=== PATIENT | female | born 1960 | race Caucasian/White ===

== ENCOUNTER 2017-11-29 08:29 | Outpatient (RCR) | payer OTHER, SELFPAY ==
--- NOTE | 2017-11-29 14:41 | BH.SGPN_ITS ---
Service Group Progress Note - Session Psychotherapy Session #2 Date Open:: 11/29/17 Time Started:: 10:10 Time Stopped:: 11:04 Targeted Problem #:: 1 Type of Group:: Illness Management - 7 Participants Goal of Group:: To increase understanding of mindfulness and explore the benefits of mindfulness and what thoughts are prohibiting group members from staying in the here and now. Client Response/Progress/Benefit:: Client entered session alert, attentive, and willing to engage. Client was an active participant in group and provided encouragement to peers. Client participated in group discussion about the difficulties of staying in the present moment. Client participated in group activity designed to reduce negative thoughts and current stressors. Client completed stressor worksheet and identified various stressors including, ?school , worrying about my son and my , and my [id number] and his health problems.? When therapist asked client to elaborate she reported, ?I don?t know whether I should go back to school and making that decision is difficult because I have cognitive issues.? Client went on to share, ?I worry what other people are thinking about me and the stress I?m putting on my family.? Therapist discussed the understanding of mental illness and the lack of understanding society has and peers provided support and related with client. Client benefitted from group by identifying current stressors in life and the impact they have on daily functioning. Progress noted in client?s increased awareness and insight. Continued treatment necessary to increase daily functioning. Eye Contact:: Good Motor Activity:: Appropriate Appearance:: Casual Speech:: Appropriate Mood:: Euthymic Affect:: Full Thoughts:: Linear, Logical, No evidence of hallucinations/delusions noted Staff Interventions:: Therapist facilitated discussion about mindfulness and benefits mindfulness practice can have. Therapist led group in an experiential activity designed to reduce negative thoughts and worries and bring client into the present moment and practice techniques designed to reduce anxiety and stress. Therapist provided a worksheet to complete that asked questions about possible stressor and overwhelming thoughts that take up their attention. Therapist led in the processing of the activity, worksheet, and assisted client in connecting how when faced with overwhelming thoughts or negative self-talk and the impact it has to daily functioning. Psychotherapy Session #3 Date Open:: 11/29/17 Time Started:: 11:10 Time Stopped:: 12:05 Targeted Problem #:: 1 Type of Group:: Functional Skills Development - 7 Participants Goal of Group:: To identify the impact that negative thinking patterns has had on group members lives and how using mindfulness techniques and coping strategies can assist group members in managing overwhelming thoughts and feelings. Client Response/Progress/Benefit:: Client was alert, attentive, and willing to engage. Client was a good contributor to group and provided support and encouragement to peers. Client participated in group discussion about coping strategies to use to bring client back to the here and now. Client identified several coping strategies to use such as breathing techniques. Client created a mindfulness kit and chose many mindfulness skills such as body scans and eating. Client created a stress ball and identified the coping strategies she would use to decrease her worries as, ?SOS, [id number], exercise, listening to music , and talking to someone supportive can help calm me down.? Client benefitted from creating a mindfulness to that includes tangible items that can help client to remember to use positive skills that can be helpful to her identifying ruminating thoughts. Progress noted in client?s ability to identify coping skills that are beneficial to her stressors. Continued treatment necessary to implement skills into daily practice. Eye Contact:: Good Motor Activity:: Appropriate Appearance:: Casual Speech:: Appropriate Mood:: Euthymic, Anxious Affect:: Full Thoughts:: Linear, Logical, No evidence of hallucinations/delusions noted Staff Interventions:: Therapist discussed varying coping strategies to use to reduce ruminating thoughts. Therapist provided each group member with various types of items and asked each member to select five items that represent something that would be helpful in creating awareness of warning signs and that will assist in bringing clients back to present moment. Therapist facilitated group processing of the mindfulness kits that each group member created. Therapist used open-ended questions to encourage elaboration of each time chosen for their kits. Therapist helped clients connect how the mindfulness kits can be used as a prevention tool and reminder to use mindfulness strategies.
--- NOTE | 2017-11-29 16:50 | BH.SGPN_ITS ---
Service Group Progress Note - Session Psychotherapy Session #1 Date Open:: 11/29/17 Time Started:: 09:01 Time Stopped:: 09:58 Targeted Problem #:: 1 Type of Group:: Process - 7 participants Goal of Group:: The goal of today's group was to check-in with client's mood, stressors, and positives, review homework and introduce topic for the day. Client Response/Progress/Benefit:: Client first day in IOP program and appeared to adjust well to the dynamics of the group. This was evidenced by CLient's willingness to openly and actively engage in the various discussions throughout. Client shared recently being discharged from a 3 week long PHP program at [facility] due to unmanagable anxiety and depression. She went on to discuss feeling she learned alot in the program but is overwhelmed by the amount of information causing uncertainty and fear related to her ability to consistently and successfully implement skills learned. She benefited from encouragement provided by the group and connecting with fellow participants experiences similar to her own. client recommenned IOP to prevent decompensation as client gains confidence in herself and her ability to recognize and challenge thought patterns provoking symptoms of anxiety and depression. Eye Contact:: Good Motor Activity:: Appropriate Appearance:: Casual Speech:: Appropriate Mood:: Euthymic, Anxious Affect:: Congruent Thoughts:: Linear, Logical, No evidence of hallucinations/delusions noted Staff Interventions:: Therapist used open-ended questions to elicit information about client's current stressors and mood state. Therapist was supportive by using active listening and reflection.
--- NOTE | 2017-11-30 10:35 | BH.SGPN ---
Service Group Progress Note - Session Psychotherapy Session #1 Date Open:: 11/30/17 - 7 group members Time Started:: 08:57 Time Stopped:: 10:07 Targeted Problem #:: 1 Type of Group:: Process Goal of Group:: The goal of today's group was to check-in with client's mood, stressors, and positives, review homework and introduce topic for the day. Client Response/Progress/Benefit:: Client responded well to session, engaged throughout. Client reports feeling relieved today as she had an appointment with her psychiatrist yesterday in which client was given the PHQ9 again and her scores improved. Client stated, it's encouraging to see I'm doing better. 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 Client reports I need to work on myself right now, I'm not ready to go back. Client seemed to benefit from reflecting on her progress and setting boundaries to improve mental health. Client progressing as evidenced by an improved mood, but can continue to benefit from daily implementation of healthy coping skills. Eye Contact:: Good Motor Activity:: Appropriate Appearance:: Neat Speech:: Appropriate Mood:: Euthymic Affect:: Constricted Thoughts:: Linear, No evidence of hallucinations/delusions noted Staff Interventions:: Therapist used open-ended questions to elicit information about client's current stressors and mood state. Therapist was supportive by using active listening and reflection.
--- NOTE | 2017-11-30 15:00 | BH.SGPN ---
Service Group Progress Note - Session Psychotherapy Session #2 Date Open:: 11/30/17 Time Started:: 10:20 Time Stopped:: 11:10 Targeted Problem #:: 1 Type of Group:: Illness Management - 7 participants Goal of Group:: To increase understanding of what strengths are and identify individual strengths. Client Response/Progress/Benefit:: Client second day in IOP program and is doing well to adjust to the dynamics of the group. She was quiet throughout the discussion portion however apppeared to take in and understand the information discussed regarding the importance of challenging negative thoughts and recognizing one's strengths. This was evidenced by client taking notes and actively working to identify some of her own strengths. 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 She additionally indicated being resourceful and good at problem solving. CLient benefited from engaging in the activity as she appeared to open up more and connect with fellow participants. CLient displaying progress in her levels of insight into how her thoughts impact her behaviors and mood. CLient recommended continued IOP to maintain stability and further improve ability to apply treatment concepts to daily life. Eye Contact:: Good Motor Activity:: Appropriate Appearance:: Casual Speech:: Appropriate Mood:: Anxious, Dysthymic Affect:: Constricted Thoughts:: Linear, Logical, No evidence of hallucinations/delusions noted Staff Interventions:: Therapist facilitated discussion about what are strengths and assisted group members in identifying examples of strengths. Therapist led an activity in which group members were given the opportunity to identify five personal strengths and how not utilizing these strengths may prevent progress and successful management of mental health symptoms. Therapist assisted clients in connecting the importance of recognizing personal strengths in order to most effectively manage mental health symptoms. Psychotherapy Session #3 Date Open:: 11/30/17 Time Started:: 11:19 Time Stopped:: 12:17 Targeted Problem #:: 1 Type of Group:: Functional Skills Development - 6 participants Goal of Group:: To identify what gets in their way of recognizing and utilizing their strengths and identifying ways to challenge negative thoughts preventing strengths recognition as well as make strengths easier to access. Client Response/Progress/Benefit:: Client again was attentive and willing to engage in the session. She appeared to more actively engage in the session than previous group and openly provided input throughout. CLient benefited from working with the group to identify potential barriers to positive self talk and recognizing one's personal strengths. She discussed that not knowing how to effectively communicate what she is experiencing as a potential barrier and effectively challenged this. Client indicated that just because she cannot fully convey her mental health struggles to supports does not mean that she cannot still let them know who they can help her. CLient showing progress in level of engagement. Recommended ongoing IOP to further improve consistent use of skills learned as well as continue to reduce sx of anxiety impacting daily functioning. Eye Contact:: Good Motor Activity:: Appropriate Appearance:: Casual Speech:: Appropriate Mood:: Anxious, Dysthymic Affect:: Congruent Thoughts:: Linear, Logical, No evidence of hallucinations/delusions noted Staff Interventions:: Therapist utilized an activity as a tool in helping clients recognize the things that can get in their way from utilizing their strengths and identify alternative ways to view these barriers. Therapist processed the activity, helping others connect challenges that keep them from recognizing and using their strengths. Therapist provided support by using active listening and providing feedback.
--- NOTE | 2017-12-01 10:35 | BH.SGPN_ITS ---
Service Group Progress Note - Session Psychotherapy Session #1 Date Open:: 12/01/17 - 6 group members Time Started:: 09:04 Time Stopped:: 10:00 Targeted Problem #:: 1 Type of Group:: Process Goal of Group:: The goal of today's group was to check-in with client's mood, stressors, and positives, review homework and introduce topic for the day. Client Response/Progress/Benefit:: Client responded well to session, active participant. Client reports feeling ?positive? today as client?s mood and outlook have improved. Client shared yesterday she fell at the store which in the past would have resulted in increased symptoms, however, client stated ?I was able to laugh it off and not let it bother me.? Client shared she plans to start walking more, do yoga, and ?get out? more to further build on the progress she has made. Client reported belief those goals will promote relaxation and reduce anxiety. Client appeared to benefit from reflecting on progress and establishing goals for the week. Client progressing as evidenced by her improved mood, but can continue to benefit from coping skill maintenance. Eye Contact:: Good Motor Activity:: Appropriate Appearance:: Neat Speech:: Appropriate Mood:: Euthymic Affect:: Constricted Thoughts:: Linear, No evidence of hallucinations/delusions noted Staff Interventions:: Therapist used open-ended questions to elicit information about client's current stressors and mood state. Therapist was supportive by using active listening and reflection.
--- NOTE | 2017-12-01 14:53 | BH.MDN_ITS ---
Multi-Disciplinary Note - Note 60-min Individual Time Started:: 12:10 Date: 12/01/17 Purpose of session/treatment goals addressed:: Purpose of session was to assess current symptoms and stressors. Other topics included: identifying treatment goals and gathering additional background. Eye Contact:: Good Motor Activity:: Appropriate Appearance:: Casual Speech:: Appropriate Mood:: Anxious Affect:: Congruent Thoughts:: Linear, Logical, No evidence of hallucinations/delusions noted Staff Interventions:: Therapist utilized open ended questions to elicit pt's current symptoms and stressors. Therapist probed for further background information. Pt collaborated with pt to identify treatment goals while in IOP. Therapist provided support by using active listening. Client Response:: Pt responded well to session as evidenced by pt being open with her responses and answering questions. Pt shared about how her anxiety became increasingly worse at work in which it got so bad so she had to take leave from work. Pt reported she was no longer able to function at work capacity , sharing she would often freeze and what tasks used to be really simple for her became increasingly difficult. Pt reported she went through a PHP program for 3 weeks which she recognizes definitely helped her get on the right medication as well as taught her some helpful skills. Pt reported however she has been having a lot of memory issues recently so having a review of those skills learned thus far has been helpful while in IOP. Pt shared about her childhood and reports despite going through some tough situations she doesn't believe those things are impacting her today. Pt reported she knows she needs to return to work, but the thought of going back right now makes her extremely anxious. Pt identified while in the program she would like to work on decreasing her anxiety and depression. Reported she wants to learn healthy coping skills for managing symptoms and improve her emotional regulation. Risks/Concerns:: Pt denies current suicidal thoughts, plan or intention to date. Future focused. Supportive family. Progress Toward Goals/Plan:: Limited progress noted given it's pt's first week in IOP. Session focused on treatment goals while in IOP. Pt to continue IOP to prevent decompensation and reduce depression and anxious symptoms. Time Stopped:: 13:10
--- NOTE | 2017-12-01 15:29 | BH.MTP ---
Master Treatment Plan - Patient Information Program Physician:: Dr. Schultz Primary Therapist:: Annemarie Briceno [facility] - Psychiatric Diagnoses Psychiatric Diagnoses:: Bipolar 2 disorder. Anxiety unspecified Diagnosis Code(s):: F 31.81 - Estimated LOS Estimated LOS (in weeks):: 6 Problem/Goal #1 - Problem/Goal #1 Stated Goal:: Client will increase mood stability, decrease depressive symptoms, and suicidal thinking due to Bipolar II disorder through Intensive Outpatient Program. Description of Barriers: Pt's negative thought patterns, distorted thought patterns, work related stress, and suicidal ideations could be barriers to treatment progress. Functional Impact: Pt's anxiety and depressive symptoms have impacted pt's ability to perform daily tasks at work, which led to pt taking a leave from work. Pt recently discharged from [facility] program after attending for 3 weeks due to suicidal ideation with plan. Pt is still having anxious symptoms when thinks about returning to work. Continues to not function at baseline. Goal Relevant Strengths/Supports: Pt is well educated, has positive supports and is motivated to make changes. - Objectives Objective #1 Stated Objective: Identify and replace 3-4 negative self-talk messages that reinforce depressive symptoms. Interventions: Therapist will help client identify distorted, negative beliefs about self and world and replace those messages with positive, affirmative messages. Discharge Criteria: Client will have achieved this goal when can identify at least 3 negative self-talk messages and replace those messages with positive, affirmative messages. Target Date: 01/10/18 Review Date: 12/27/17 Objective #2 Stated Objective: Client will learn and utilize 2-3 healthy coping strategies to manage depressive symptoms. Interventions: Therapist will assist client in learning internal coping strategies to manage depressive symptoms, along with helping client identify triggers. Discharge Criteria: Client will have achieved this goal when can verbalize and has practiced at least 2 healthy coping strategies. Target Date: 01/10/18 Review Date: 12/27/17 Problem/Goal #2 - Problem/Goal #2 Stated Goal:: Reduce overall frequency, intensity, and duration of the anxiety so that daily functioning is not impaired. Description of Barriers: Pt's negative thought patterns, distorted thought patterns, work related stress, and suicidal ideations could be barriers to treatment progress. Functional Impact: Pt's anxiety and depressive symptoms have impacted pt's ability to perform daily tasks at work, which led to pt taking a leave from work. Pt recently discharged from [facility] program after attending for 3 weeks due to suicidal ideation with plan. Pt is still having anxious symptoms when thinks about returning to work. Continues to not function at baseline. Goal Relevant Strengths/Supports: Pt is well educated, has positive supports and is motivated to make changes. - Objectives Objective #1 Stated Objective: Client will identify 2-3 anxiety triggers and 2 coping skills to use when feeling anxious with strong focus on anxieties about returning back to work. Interventions: Therapist will encourage client to use self-awareness strategies and assist client in developing coping strategies to manage ruminating thoughts. Discharge Criteria: Client will have met this goal when can identify at least 2 triggers and 2 ways to cope with anxieties. Target Date: 01/10/18 Review Date: 12/27/17
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
--- NOTE | 2017-12-02 09:44 | BH.NA ---
Physical Data - Vital Signs Temperature: 98.0 F Pulse Rate: 76 Respiratory Rate: 14 Blood Pressure: 124/79 - Height/Weight Height: 1.68 m Weight:: 124.738 kg Weight in Pounds: 275.0 lbs Current Medication Compliance - Medication Compliance Do you take your medication as prescribed?: Yes Do you need assistance with taking medication?: No Have you had side effects from medication?: Yes - Risperdal and Zoloft: wt gain Nutritional History - Appetite Nutritional Instructions:: If client shows signs of a swallowing problem, weight change of 10 pounds or more in the last month, or is on a diabetic diet, the physician will review and request a dietitian consult, as appropriate. All unintentional weight loss will be referred to the physician for decision on need for dietitian consult. Describe your appetite:: Good Have you noticed a change in your eating habits lately?: Yes - appetite increased as anxiety and depressive sx increase Functional Assessment - Sleep Pattern Describe any problems with sleeping: Client recognizes that she can sleep up to 16 hours as a way of isolating. She denies difficulty falling or staying asleep. - Activities Motor Activity:: Functional Sensory/Communication Assess - Vision Problems Do you have any vision problems?: Glaucoma - Hearing Problems Do you have any hearing problems?: Adequate - Communication Problems Do you have difficulty understanding what people are saying?: No What is your primary language?: South African Learning Assessment - Education What is your level of education?: Master Degree - Learning Barriers Learning Barriers:: Ready to learn Medical Problems/History - Cardiac Conditions Cardiovascular: Hypertension, Hyperlipidemia - Respiratory Conditions Respiratory: Other (See comments) Comments:: LENA - wears CPAP QHS - Gastrointestinal Conditions Gastrointestinal: Dyspepsia - GERD - Musculoskeletal Conditions Musculoskeletal: Arthritis - osteoarthritis - Pain Assessment Do you have acute or chronic pain?: No - Female Reproductive Do you think you may be ?: No Number of pregnancies:: 2 Number of children:: 1 Do you have any history of breast disease?: No Substance Abuse - Substance Abuse Please describe substance abuse in the last 30 days:: No tobacco or illicit substance use. Very rare alcohol use. Minimal caffiene intake. Mental Status Summary - Mental Status Significant Findings/Observations on Appearance and Mood:: Client is A&Ox4 with good hygiene and casual dress. She engages easily in conversation and is cooperative with interview. Normal activity and makes good eye contact. Speech is clear and of normal rate and volume. Mild depression and mild-moderate anxiety. Affect is mood congruent. Logical associations. Normal process. Average knowledge. No symptoms of delusions. Denies SI, HI, and hallucinations. Reported fair concentration and attention, but appropriate for me. Suicide Assessment - Suicidal Ideation Are you currently or have you been suicidal in the past?: No Suicidal Intentional Rating Scale (SIRS): No suicidal thoughts (past or present) Physician Notification: If Active suicidal thoughts/Will not contract for safety is checked, contact physician and document in the Physician Notification section below. Past Psychiatric History - MH Treatment Hx Past Psychiatric Medications:: risperdone and sertraline - both caused wt gain Age of first mental health symptoms: 27 years old, post- after the of her first child Fall Risk Assessment - Age Age: Less than 60 - Mental Status Mental Status: Willing & able to ask for assistance when needed - Physical Status Physical Status: No problems - Impairments Impairments: None - Elimination Elimination: Continent AND independent - Gait or Balance Gait or Balance: Walks independently - Hx of Falls History of falls in the past 6 months: No known history Physician Notification - Physician Notification Physician Notified: Cristina Schultz Method of Notification: Face to Face Comments: Discussed plan of care RN Summary of Impressions - Impressions Recommendations: Include psychiatric and medical issues, treatment planning recommendations, and discharge planning needs. Impression: General Medical Conditions: glaucoma, HTN, HLD, GERD, LENA, osteoarthritis - Level of Care How do the client's current symptoms and functional deficits support need for this level of care?: Client notes increased symptoms since August 2017, which she relates to increased job stress. 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 She describes panic attacks, decreased concentration, poor memory, rumination, and constant anxiety that has been progressively worsening. She is finding little pleasure in activities and has been having to call off of work due to the severity of her symptoms. She notes that she has been sleeping more than normal as a means of coping. She has also had an increased appetite with weight gain as symptoms have worsened. Client describes her as very supportive, but he does not have the skills to help her, though he is willing to try. IOP will promote gains and prevent further decompensation for this client.
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
--- NOTE | 2017-12-02 14:20 | BH.DR.ITP ---
Initial Treatment Plan - Patient Information Visit Information: ADMISSION DATE: EXPECTED LOS: 4-6 weeks Diagnoses:: Bipolar 2 disorder. Anxiety unspecified - Problems/Symptoms Problem #1:: Mood symptoms Symptom:: Depression, anhedonia, decreased energy, difficulty concentrating, recent suicidal ideation, biologic disruption of appetite Problem #2:: Anxiety Symptom:: Rumination, panic
--- NOTE | 2017-12-04 11:38 | BH.SGPN_ITS ---
Service Group Progress Note - Session Psychotherapy Session #2 Date Open:: 12/01/17 Time Started:: 10:10 Time Stopped:: 11:03 Targeted Problem #:: 1 Type of Group:: Illness Management Goal of Group:: The goal of group was to increase understanding of goals and goal setting and practice a method of goal setting. Client Response/Progress/Benefit:: Pt contributed to discussion and listened attentively to others. Pt reported she has come to realize she doesn't have an positive goals. Explained currently her goal would be to retire, but that's not for 5 years and once she retires pt reported she doens't know what she'd do because I don't have any hobbies. Pt able to identify the importance of goal setting. Reported her depressive symptoms make it difficult for her to set goals and follow through with them. pt seemed to benefit from engaging in activity that gave opportunity for rehearsing setting short term goals. Eye Contact:: Fair Motor Activity:: Appropriate Appearance:: Casual Speech:: Appropriate Mood:: Anxious, Dysthymic Affect:: Constricted Thoughts:: Linear, Logical, No evidence of hallucinations/delusions noted Staff Interventions:: Therapist facilitated group discussion about goals and goal setting. Therapist taught group the acronym SMART (Specific, Measurable, Achievable, Realistic, Timely) as a tool to help with goal setting. Therapist led the group in an activity to be used as a method of practicing goal setting. Therapist guided the group through the SMART acronym as group was participating in activity. Therapist assisted group members with connecting the importance of making small, realistic goals. Psychotherapy Session #3 Date Open:: 12/01/17 Time Started:: 11:13 Time Stopped:: 12:03 Targeted Problem #:: 1 Type of Group:: Functional Skills Development Goal of Group:: The goal of group was to identify a goal for the weekend, explore the potential barriers to achieving that set goal, and identify strategies to overcome barriers. Client Response/Progress/Benefit:: Pt contributed to dsicussion if elicited by therapist, listened attentively to others. Pt identified her SMART goal is to walk at least 4 times a week between 2pm and 5pm, charting her progress. Pt identified she wants to accomplish this goal because it will improve her physical health and create endorphins to combat depressive symptoms. Pt shared obstables to accomplishing this goal would be not having energy or motivation. Pt reported having support from her and reflecting on the positive impact completing the goal would have on her are things that can help motivate her to follow through with goal. Seemed to benefit from gaining awareness of what might be a barrier to accomplsihing her goal as well as coming up with solutions to combat those obstacles. Eye Contact:: Fair Motor Activity:: Appropriate Appearance:: Casual Speech:: Appropriate Mood:: Anxious, Dysthymic Affect:: Constricted Thoughts:: Linear, Logical, No evidence of hallucinations/delusions noted Staff Interventions:: Therapist facilitated group activity in which group members identified a goal to work on over the next week. Therapist asked group members to identify barriers to achieving identified goal and strategies to help them achieve their goal. Therapist led group in processing their goal maps , assisting clients with establishing SMART goals. Therapist provided support by using reflective listening.
--- NOTE | 2017-12-05 12:49 | BH.SGPN ---
Service Group Progress Note - Session Psychotherapy Session #1 Date Open:: 12/05/17 Time Started:: 09:06 Time Stopped:: 10:00 Targeted Problem #:: 1 Type of Group:: Process - 7 Participants Goal of Group:: The goal of today's group was to check-in with client's mood, stressors, and positives, review homework, and to introduce the topic of the day. Client Response/Progress/Benefit:: Client entered session alert, attentive, and willing to engage. Client reminisced over her weekend where she spent the majority of the time visiting with her mother who is ?going downhill? and her [id number] at the hospital, ?which is depressing.? Client reported minimal anxiety and was able to manage the anxiety she felt without the use of medications. She reports, ?things are starting to look up? and identified her emotion as hopeful. Client benefitted from group by receiving support from peers and identifying coping strategies to use for anxiety. Client reported using coloring books to calm nerves. Progress noted in client?s ability to manage anxiety without the use of medications. Continued treatment necessary to maintain gains and increase coping skills. Eye Contact:: Good Motor Activity:: Appropriate Appearance:: Casual Speech:: Appropriate Mood:: Euthymic Affect:: Full Thoughts:: Linear, Logical, No evidence of hallucinations/delusions noted Staff Interventions:: Therapist used open-ended questions to elicit information about client's current stressors and mood. Therapist was supportive by using active listening and reflection.
--- NOTE | 2017-12-05 14:01 | BH.SGPN_ITS ---
Service Group Progress Note - Session Psychotherapy Session #2 Date Open:: 12/05/17 - 7 group members Time Started:: 10:11 Time Stopped:: 11:03 Targeted Problem #:: 1 Type of Group:: Illness Management Goal of Group:: The goal of group was to increase understanding of the benefits social support provides in mental health wellness. Another goal was to increase self-awareness of the barriers that prevent client to seeking support or utilizing the support they have. Client Response/Progress/Benefit:: Client responded well to session, active participant. Client appeared to connect with the quote and activity stating, you need supports to pick you up when you can?t do it on your own. Client shared social supports are beneficial as they help identify warning signs, listen without judgement, and provide unconditional love and support. Client shared her is a strong support for her and is ?always there.? Client identified her barriers for seeking support to be ?feeling weak for asking for help.? Client appeared to benefit from increasing awareness of the benefits of social support as well as identifying barriers. Client progressing as shown by her report of increased emotional regulation, but can continue to benefit from challenging negative thoughts. Eye Contact:: Good Motor Activity:: Appropriate Appearance:: Neat Speech:: Appropriate Mood:: Euthymic Affect:: Constricted Thoughts:: Linear, No evidence of hallucinations/delusions noted Staff Interventions:: Therapist led a group discussion about importance of social supports. Therapist facilitated an activity that required the group members to utilize support from each other. Therapist utilized the activity as a tool to connect the importance of accepting social support. Therapist provided support through reflective listening and giving feedback. Psychotherapy Session #3 Date Open:: 12/05/17 - 7 group members Time Started:: 11:13 Time Stopped:: 12:05 Targeted Problem #:: 1 Type of Group:: Functional Skills Development Goal of Group:: The goal of group was to increase understanding of the different types of social support. Another goal was to identify one type of support the client?s desire and establish one small step towards achieving that support. Client Response/Progress/Benefit:: Client responded well to session, quiet, but participating when prompted by therapist. Client helped the group identify different types of social supports and how each can benefit mental wellness. Client shared her strongest support comes from personal, professional, and mormonism. Client shared should would like to improve her personal supports by having ?my friends listen and understand my needs.? Client reported she plans to increase this support by using assertive communication with her current friends so they can have awareness of client?s mental health. Client appeared to benefit from increasing awareness of the type of support she can strengthen. Client progressing with increased awareness of positive mental health supports, but can continue to benefit from coping skill maintenance. Eye Contact:: Good Motor Activity:: Appropriate Appearance:: Neat Speech:: Appropriate Mood:: Euthymic Affect:: Constricted Thoughts:: Linear, No evidence of hallucinations/delusions noted Staff Interventions:: Therapist facilitated group discussion on the different types of social support and importance of each type of support. A social support worksheet, was utilized to give clients direction in identifying which type of support they desired, how it will help, and identifying the first small step towards the desired support. Therapist provided homework for each group member to try and accomplish the one small step each group member identified on the worksheet.
--- NOTE | 2017-12-06 15:30 | BH.MTP_ITS ---
Master Treatment Plan - Patient Information Program Physician:: Dr. Schultz Primary Therapist:: Annemarie Briceno [facility] - Psychiatric Diagnoses Psychiatric Diagnoses:: Bipolar 2 disorder. Anxiety unspecified Diagnosis Code(s):: F 31.81 - Estimated LOS Estimated LOS (in weeks):: 6 Problem/Goal #1 - Problem/Goal #1 Stated Goal:: Client will increase mood stability, decrease depressive symptoms , and suicidal thinking due to Bipolar II disorder through Intensive Outpatient Program. Description of Barriers: Pt's negative thought patterns, distorted thought patterns, work related stress, and suicidal ideations could be barriers to treatment progress. Functional Impact: Pt's anxiety and depressive symptoms have impacted pt's ability to perform daily tasks at work, which led to pt taking a leave from work. Pt recently discharged from [facility] program after attending for 3 weeks due to suicidal ideation with plan. Pt is still having anxious symptoms when thinks about returning to work. Continues to not function at baseline. Goal Relevant Strengths/Supports: Pt is well educated, has positive supports and is motivated to make changes. - Objectives Objective #1 Stated Objective: Identify and replace 3-4 negative self-talk messages that reinforce depressive symptoms. Interventions: Therapist will help client identify distorted, negative beliefs about self and world and replace those messages with positive, affirmative messages. Discharge Criteria: Client will have achieved this goal when can identify at least 3 negative self-talk messages and replace those messages with positive, affirmative messages. Target Date: 01/10/18 Review Date: 12/27/17 Objective #2 Stated Objective: Client will learn and utilize 2-3 healthy coping strategies to manage depressive symptoms. Interventions: Therapist will assist client in learning internal coping strategies to manage depressive symptoms, along with helping client identify triggers. Discharge Criteria: Client will have achieved this goal when can verbalize and has practiced at least 2 healthy coping strategies. Target Date: 01/10/18 Review Date: 12/27/17 Problem/Goal #2 - Problem/Goal #2 Stated Goal:: Reduce overall frequency, intensity, and duration of the anxiety so that daily functioning is not impaired. Description of Barriers: Pt's negative thought patterns, distorted thought patterns, work related stress, and suicidal ideations could be barriers to treatment progress. Functional Impact: Pt's anxiety and depressive symptoms have impacted pt's ability to perform daily tasks at work, which led to pt taking a leave from work. Pt recently discharged from [facility] program after attending for 3 weeks due to suicidal ideation with plan. Pt is still having anxious symptoms when thinks about returning to work. Continues to not function at baseline. Goal Relevant Strengths/Supports: Pt is well educated, has positive supports and is motivated to make changes. - Objectives Objective #1 Stated Objective: Client will identify 2-3 anxiety triggers and 2 coping skills to use when feeling anxious with strong focus on anxieties about returning back to work. Interventions: Therapist will encourage client to use self-awareness strategies and assist client in developing coping strategies to manage ruminating thoughts. Discharge Criteria: Client will have met this goal when can identify at least 2 triggers and 2 ways to cope with anxieties. Target Date: 01/10/18 Review Date: 12/27/17
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
--- NOTE | 2017-12-07 15:14 | BH.MDN_ITS ---
Multi-Disciplinary Note - Note 45-min Individual Time Started:: 12:30 Date: 12/07/17 Purpose of session/treatment goals addressed:: Purpose of session was to assess current symptoms and stressors. Other topics: identifying anxious triggers and self-care. Eye Contact:: Fair Motor Activity:: Appropriate Appearance:: Casual Speech:: Appropriate Mood:: Dysthymic, Other - apathetic Affect:: Constricted Thoughts:: Linear, Logical, No evidence of hallucinations/delusions noted Staff Interventions:: Therapist utilized open ended questions to elicit pt's current symptoms and stressors. Therapist explored with pt what contributed to pt taking leave from work, attempted to elicit specific anxiety triggers specifically while at work. Therapist provided psychoeducation about cognitive behavioral therapy (CBT) helping pt understand connecting between thoughts, feelings, and behavior. Therapist explained importance of self-care; elicited what pt currently does for self-care. Provided pt with self-care ideas as well as a self-care balance wheel for her to fill out. Client Response:: Pt reported today she was feeling apathetic and just blah . Shared she had been feeling really good, but past couple days she's noticed more ups and downs in my moods. Pt reported she has come to a revelation that are moods are often dependent on external things. Reported when saw an old friend yesterday she felt happy for a couple hours, but once that situation was over her mood dropped back down. Pt connected with the cognitive distortions handout, identified she often filters out the positives and jumps to conclusions a lot. Pt recognized this line of thinking is unhelpful to her situation and tends to make things worse. When exploring what led to pt taking a leave from work pt shared her anxiety was out of control and she could not perform her daily tasks. Pt unable to identify any specific triggers to her anxiety, shared she had a hard time differentiating between depressive symptoms and anxiety. Pt reported she thought she does an okay job with self-care, but when asked what she does pt was only able to identify exercise. Pt shared she recognizes maybe she doesn't do as much self care as she thought. Pt agreeable to complete the self-care wheel. Risks/Concerns:: Pt denies current suicidal thoughts, plan or intention to date. Pt is future focused and has a supportive . Progress Toward Goals/Plan:: Pt demonstrating progress with recognizing some of the thought patterns that are not healthy. Pt seems to be progressing with increased self-awareness. Pt to continue IOP to maintain gains and reduce depressive and anxious symptoms. Time Stopped:: 13:15
--- NOTE | 2017-12-07 15:25 | BH.SGPN_ITS ---
Service Group Progress Note - Session Psychotherapy Session #2 Date Open:: 12/07/17 - 10 group members Time Started:: 10:25 Time Stopped:: 11:19 Targeted Problem #:: 1 Type of Group:: Illness Management Goal of Group:: To increase understanding of what conflict is and increase awareness of how group members manage conflict. Client Response/Progress/Benefit:: Client responded well to session, quiet, but participating when prompted by therapist. Client connected with the quote sharing, ?you have to manage your response to conflict because you can?t control the other person.? Client reported she utilizes the accommodating type when dealing with conflict as client ?puts myself last.? Client stated this conflict resolution style negatively impacts her mental health at times as client puts others? needs before her own which can lead to burnout. Client appeared to benefit from increases awareness of ways to appropriately manage conflict. Client seems to be progressing as shown by her report of reduced anxiety, but can continue to benefit from communicating her needs. Eye Contact:: Fair Motor Activity:: Appropriate Appearance:: Neat Speech:: Appropriate Mood:: Dysthymic Affect:: Constricted Thoughts:: Linear, No evidence of hallucinations/delusions noted Staff Interventions:: Therapist facilitated discussion about conflict and conflict resolution. Therapist led group in an activity in which group members had to identify their initial response to conflict and how their response changes based on different situations. Therapist assisted clients with connecting the impact current conflict style has on their mental health. Psychotherapy Session #3 Date Open:: 12/07/17 - 9 group members Time Started:: 11:25 Time Stopped:: 12:15 Targeted Problem #:: 1 Type of Group:: Functional Skills Development Goal of Group:: To identify what contributes positively and negatively to conflict and appropriate ways to manage conflict with others. Client Response/Progress/Benefit:: Client responded well to session, engaged in activity. Client shared it was challenging for her at times to speak her mind and provide input as client did not want to upset anyone, but she challenged herself to do so. Client shared overall the group was successful because ?we listened to each other and had a strategy.? Client helped the group create strategies to improve conflict resolution skills. Client stated acceptance has been helpful for her when managing conflict. ?I have to accept that there are things out of my control.? Client appeared to benefit from increased awareness o f ways to effectively manage conflict. Client seems to be progressing as shown by her willingness to try different conflict resolution styles, but continues to struggle with being passive which could keep client from expressing her mental health needs. Eye Contact:: Good Motor Activity:: Appropriate Appearance:: Neat Speech:: Appropriate Mood:: Euthymic Affect:: Full Thoughts:: Linear, No evidence of hallucinations/delusions noted Staff Interventions:: Therapist facilitated group activity in which group members were provided with materials and had to eliminate certain items with consensus from group. Therapist processed activity, helping clients connect throughout activity strategies each person used to manage conflict. Therapist led discussion about what contributes to conflict in a positive or negative manner. Therapist facilitated discussion about conflict resolution strategies and provided group member with a handout about effective ways to manage conflict.
--- NOTE | 2017-12-09 12:30 | BH.SGPN_ITS ---
Service Group Progress Note - Session Psychotherapy Session #1 Date Open:: 12/09/17 Time Started:: 09:05 Time Stopped:: 10:00 Targeted Problem #:: 1 Type of Group:: Process - 6 Participants Goal of Group:: The goal of today's group was to check-in with client's mood, stressors, and positives, review homework, and to introduce the topic of the day. Client Response/Progress/Benefit:: Client entered session alert, attentive, and willing to engage. Client was supportive to peers. Client shared she has been having some down days and is frustrated with the anxiety and has been experiencing dry mouth due to it. Client went on to share how she is dreading the weekend because he [id number] is in hospice and will be with him the majority of the time. Client also shared that she has been thinking about going back to work and states, ?it?s a new possibility.? Client benefitted from group by receiving support from peers. Limited progress noted due to client?s decreased mood but has been using the coping skill of walking to help manage this. Continued treatment necessary to decrease anxiety. Eye Contact:: Good Motor Activity:: Appropriate Appearance:: Casual Speech:: Appropriate Mood:: Anxious, Depressed Affect:: Full Thoughts:: Linear, Logical, No evidence of hallucinations/delusions noted Staff Interventions:: Therapist used open-ended questions to elicit information about client's current stressors and mood. Therapist was supportive by using active listening and reflection. Psychotherapy Session #2 Date Open:: 12/09/17 Time Started:: 10:11 Time Stopped:: 11:00 Targeted Problem #:: 1 Type of Group:: Illness Management - 5 Participants Goal of Group:: The goal of group was to increase understanding of the use of coping strategies. Another goal was to increase client?s ability to identify problems, emotions and what coping strategies could be beneficial for such problems/emotions. Client Response/Progress/Benefit:: Client was quiet throughout group but appeared alert and attentive AEB taking notes and conversing with peers. Client was hesitant to participate in group activity and sat back as peers completed the majority of it, but with encouragement client fully participated in activity designed to increase stress and cause group to use problem solving and communication skills. Client continued working on activity, despite frustrations , and successfully completed activity. Client benefitted from identifying healthy coping skills and reported needing more internal coping supports than external. Progress noted in client?s ability to need of coping skills and her ability to practice skills. Continued treatment necessary to maintain gains. Eye Contact:: Fair Motor Activity:: Restless Appearance:: Casual Speech:: Appropriate Mood:: Anxious, Depressed Affect:: Congruent Thoughts:: Linear, Logical, No evidence of hallucinations/delusions noted Staff Interventions:: Therapist facilitated the group discussion about the quote from today. Therapist supplied each client with a typed scenario, which detailed a person?s struggles, emotions, and stressors. Therapist provided guidance to the group on a method to break the scenario down to small parts. Therapist aided the group in processing the coping skill and solutions each person had developed for the person in the scenario. Therapist utilized active listening and reflection throughout.
--- NOTE | 2017-12-09 15:17 | BH.SGPN_ITS ---
Service Group Progress Note - Session Psychotherapy Session #3 Date Open:: 12/09/17 - 5 group members Time Started:: 11:11 Time Stopped:: 12:05 Targeted Problem #:: 1 Type of Group:: Functional Skills Development Goal of Group:: Goal was to increase client?s self-awareness on their use of coping strategies and increase repertoire of healthy coping strategies. Client Response/Progress/Benefit:: Client responded well to session, quiet, but participating when prompted by therapist. Client reported it is important to have a variety of coping strategies because some work better than others depending on the day. Client shared the past month she has learned a lot of different techniques, so I'm still trying to figure out what works best for me. Client helped the group develop a list of coping skills for the following categories: distraction, self-love, thought challenge, emotional release, and grounding. Client stated it is important to have a mixture of all the categories. Client created a 'coping skills menu' which included, making to do lists for small goals, coloring, cooking, writing down negative thoughts, and listening to music. Client appeared to benefit from gaining awareness of the various types of coping skills and developing a list of skills to try. Client progressing as evidenced by her improved mood and generalization of skills. Eye Contact:: Fair Motor Activity:: Appropriate Appearance:: Neat Speech:: Appropriate Mood:: Euthymic Affect:: Constricted Thoughts:: Linear, No evidence of hallucinations/delusions noted Staff Interventions:: Therapist facilitated discussion about the different types of coping skills. Therapist led group in an activity in which group members were asked to brainstorm coping strategies that fit in each coping skill category. Therapist reviewed each coping strategy with the group and led a discussion about whether the coping strategies identified were healthy or unhealthy. Therapist provided homework in which group members creating a coping skills menu and would practice two skills a day.
[2018-01-20 13:53] VITALS: BP 124/79; PULSE 76; RESP 14; TEMP 36.7
== END 2017-12-14 23:59 ==
LOC: BHIOP 08:29
PROVIDERS: Family Provider Internal Medicine; PCP Internal Medicine; Visit Provider Psychiatry & Neurology Psychiatry
DX: F31.81 Bipolar II disorder (principal); F41.9 Anxiety disorder, unspecified; E55.9 Vitamin D deficiency, unspecified; I10 Essential (primary) hypertension; E78.00 Pure hypercholesterolemia, unspecified; G47.33 Obstructive sleep apnea (adult) (pediatric); M19.90 Unspecified osteoarthritis, unspecified site; Z62.810 Personal history of physical and sexual abuse in childhood; Z79.899 Other long term (current) drug therapy
CPT/HCPCS: H0035; 90834; 90837; 90853

== ENCOUNTER 2017-12-16 09:00 | Outpatient (RCR) | payer OTHER, SELFPAY ==
[2017-12-15 01:09] VITALS: PULSE 76; RESP 14; TEMP 36.7
--- NOTE | 2017-12-16 12:56 | BH.SGPN ---
Service Group Progress Note - Session Psychotherapy Session #1 Date Open:: 12/16/17 Time Started:: 09:10 Time Stopped:: 10:10 Targeted Problem #:: 1 Type of Group:: Process - 3 Participants Goal of Group:: The goal of today's group was to check-in with client's mood, stressors, and positives, review homework, and to introduce the topic of the day. Client Response/Progress/Benefit:: Client shared how her [id number] and her son was with him when it occurred and worries about how he is coping but stated, ?I?m there for him and we can talk about it.? Client reported, ?I?m proud. I?ve been strong and supportive of my family.? Therapist processed the emotions of being proud and client shared that she feels she handled things well throughout this process. Lastly, client shared that she plans on going back to work at the end of January and reports, ?I feel confident. I don?t want to sit in the house any longer and possibly get bad again.? Client benefitted from group by sharing her successes with the group and celebrating with peers. Progress noted in client?s positive mindset and ability to implement coping skills when needed. Continued treatment necessary to maintain gains. Eye Contact:: Good Motor Activity:: Appropriate Appearance:: Casual Speech:: Appropriate Mood:: Euthymic Affect:: Full Thoughts:: Linear, Logical, No evidence of hallucinations/delusions noted Staff Interventions:: Therapist used open-ended questions to elicit information about client's current stressors and mood. Therapist was supportive by using active listening and reflection.
--- NOTE | 2017-12-16 15:33 | BH.SGPN_ITS ---
Service Group Progress Note - Session Psychotherapy Session #2 Date Open:: 12/16/17 - 8 group members Time Started:: 10:13 Time Stopped:: 11:10 Targeted Problem #:: 1 Type of Group:: Illness Management Goal of Group:: To identify the importance of change, increase understanding of difficulty of making change, identify what clients would like to make changes in and identify the barriers or obstacles that get in the way of change. Client Response/Progress/Benefit:: Client responded well to session, participating in activity. Client shared making change is challenging because of anxiety and depression as ?you can feel lost and not know where to start.? Client identified goals for the week that would benefit her mental health to be verbalizing emotions, being a strong support for her family during a time of loss, find positive memories as she grieves. Client shared these goals would help client ?keep moving forward and make me feel good for helping others.? Client identified her barriers to be taking on too much and not utilizing self- care. Client appeared to benefit from increasing awareness of the positives of change as well as her personal barriers. Client seems to be progressing with implementing mindfulness strategies, but can continue to benefit from setting healthy boundaries. Eye Contact:: Fair Motor Activity:: Appropriate Appearance:: Neat Speech:: Appropriate Mood:: Euthymic Affect:: Congruent Thoughts:: Linear, No evidence of hallucinations/delusions noted Staff Interventions:: Therapist facilitated discussion about change and helped client?s make connections of why change is important. Therapist led group in an experiential activity which involved client?s identifying changes want to make and barriers that get in the way of making those changes. Therapist utilized activity as a tool to help client?s make connections of difficulties in making changes and identify what helps overcome barriers to change. Psychotherapy Session #3 Date Open:: 12/16/17 - 9 group members Time Started:: 11:15 Time Stopped:: 12:10 Targeted Problem #:: 1 Type of Group:: Functional Skills Development Goal of Group:: To identify specific barriers to an identified change clients would want to make and identify ways to overcome those barriers. Client Response/Progress/Benefit:: Client responded well to session, active in discussion. Client reported overcoming barriers is challenging client has a hard time identifying alternative strategies to her problems which keeps client from beginning change. Client identified her weekly goal ?expressing emotions in a healthy way? by using self-care and mindfulness. Client shared her barriers are cognitive distortions and focusing more on others? needs. Client created strategies to overcome this barrier including using radical acceptance, communicating needs with supports, and being consistent. Client seemed to benefit from identifying strategies to overcome barriers for her weekly goal. Client appears to be progressing with generalizing healthy coping strategies, but can continue to benefit from maintenance. Eye Contact:: Good Motor Activity:: Appropriate Appearance:: Neat Speech:: Appropriate Mood:: Euthymic Affect:: Full Thoughts:: Linear, No evidence of hallucinations/delusions noted Staff Interventions:: Therapist facilitated discussion about what helped the group overcome challenges that came about during the experiential activity. Therapist utilized the activity as a tool in relating those experiences to ways to overcome barriers with challenges in their life when trying to make change. Therapist group into smaller groups and had them brainstorm ways to overcome certain barriers to their identified change. Therapist provided support by using reflective listening and providing feedback.
--- NOTE | 2017-12-19 12:57 | BH.SGPN ---
Service Group Progress Note - Session Psychotherapy Session #1 Date Open:: 12/19/17 Time Started:: 09:05 Time Stopped:: 10:10 Targeted Problem #:: 1 Type of Group:: Process - 10 Participants Goal of Group:: The goal of today's group was to check-in with client's mood, stressors, and positives, review homework, and to introduce the topic of the day. Client Response/Progress/Benefit:: Client entered session alert, attentive, and willing to engage. Client spoke about visiting her mother who is ill she reports is giving up and having met with the pest control chemical technician for her [id number] on Tuesday and on the drive home experienced increased anxiety. Client completed breathing exercises that helped to calm her down. This occurred again on Tuesday in the car and she experienced a small panic attack but was able to use a grounding exercise that helped to calm and center her. She shared how the rest of the day she was anxious but was able to manage it and is frightful that she may be getting worse again. Therapist discussed the ups and downs of daily life and client was receptive. Client indicated her emotion as hesitant and scared because of the anxiety and benefitted from receiving support and normalizing her emotions. Progress noted in client ability to manage anxiety and panic. Continued treatment necessary to educate client on normal emotions and identifying what a setback would look like. Eye Contact:: Good Motor Activity:: Appropriate Appearance:: Casual Speech:: Appropriate Mood:: Euthymic, Anxious Affect:: Full Thoughts:: Linear, Logical, No evidence of hallucinations/delusions noted Staff Interventions:: Therapist used open-ended questions to elicit information about client's current stressors and mood. Therapist was supportive by using active listening and reflection. Psychotherapy Session #2 Date Open:: 12/19/17 Time Started:: 10:14 Time Stopped:: 11:10 Targeted Problem #:: 1 Type of Group:: Illness Management - 9 Participants Goal of Group:: To increase understanding and awareness of emotions connected to change and the impact those emotions can have on change. Client Response/Progress/Benefit:: Client entered session alert and attentive AEB taking notes. Client was quiet the majority of group. Client participated in a small group activity designed to illustrate how the emotions of change can look and how we might respond. Client was able to successfully complete activity and participated in group discussion on the stages of change model. Client benefitted from identifying the stages of change and rating what stage she is at. Limited progress noted due to clients lack of participation. Continued treatment necessary to increase use of coping skills. Eye Contact:: Good Motor Activity:: Appropriate Appearance:: Casual Speech:: Appropriate Mood:: Euthymic Affect:: Full Thoughts:: Linear, Logical, No evidence of hallucinations/delusions noted Staff Interventions:: Therapist facilitated group discussion about change. Therapist led the group in an activity in which the activity was utilized as a tool to increase clients awareness of emotions connected with change. Therapist led the processing of how each emotion was connected with change. Therapist was supportive by providing feedback and using reflective listening.
--- NOTE | 2017-12-19 13:48 | BH.SGPN_ITS ---
Service Group Progress Note - Session Psychotherapy Session #3 Date Open:: 12/19/17 - 9 group members Time Started:: 11:19 Time Stopped:: 12:15 Targeted Problem #:: 1 Type of Group:: Functional Skills Development Goal of Group:: To identify the challenges associated with making change and identify positive outcomes that have resulted from changes made in past. Another goal was to identify one change they are willing to make this week. Client Response/Progress/Benefit:: Client responded well to session, engaged throughout. Client reported change is challenging as one can plan, but have to adapt along the way. Client reported personal change is challenging ?because I get overwhelmed and second-guess.? Client identified taking time to address her mental health over the past few months as a positive change in the past. Client reported she would like to ?learn to accept? her changed role when she returns to work as a positive change moving forward. Client appeared to benefit from gaining awareness of the challenges associated with making change as well as times when change was positive. Client progressing as shown by her report of reduced intensity of mental health symptoms, but can continue to benefit from coping skill maintenance. Eye Contact:: Good Motor Activity:: Appropriate Appearance:: Neat Speech:: Appropriate Mood:: Euthymic Affect:: Full Thoughts:: Linear, No evidence of hallucinations/delusions noted Staff Interventions:: Therapist led group in an activity to help group members recognize the challenges associated with change. Therapist utilized activity as a tool to identify ways to manage changes and adapt to the challenges that ensue. Therapist facilitated group discussion about positive outcomes from change. Therapist helped clients explore changes they are willing to make this week and elicited discussion on the pros and cons of making that change.
--- NOTE | 2017-12-20 12:44 | BH.SGPN_ITS ---
Service Group Progress Note - Session Psychotherapy Session #1 Date Open:: 12/20/17 Time Started:: 09:04 Time Stopped:: 10:08 Targeted Problem #:: 1 Type of Group:: Process - 6 Participants Goal of Group:: The goal of today's group was to check-in with client's mood, stressors, and positives, review homework, and to introduce the topic of the day. Client Response/Progress/Benefit:: Client entered session alert, attentive, and willing to engage. Client shared that she wasn?t supposed to be in group today but realized that calling hours was tonight and knew she may need extra support and didn?t want to be alone and decided to attend group. When asked how she was feeling about tonight she reported that she is ready to be there and supportive for her family and has supportive friends who are attending. Client went on to share how she was feeling better yesterday and recognizes that medications are not the only thing that helps someone and states, ?I can see how taking medications and doing the skills are about 50-50 and both are important.? Client indicated her emotion as apprehensive and benefitted from the support of her peers. Progress noted in client?s awareness that she knew she would need more support and not isolate. Continued treatment necessary to maintain gains. Eye Contact:: Good Motor Activity:: Appropriate Appearance:: Casual Speech:: Appropriate Mood:: Euthymic Affect:: Full Thoughts:: Linear, Logical, No evidence of hallucinations/delusions noted Staff Interventions:: Therapist used open-ended questions to elicit information about client's current stressors and mood. Therapist was supportive by using active listening and reflection. Psychotherapy Session #2 Date Open:: 12/20/17 Time Started:: 10:17 Time Stopped:: 11:19 Targeted Problem #:: 1 Type of Group:: Illness Management - 7 Participants Goal of Group:: To increase understanding of communication and the various types of communication. Another goal was to increase understanding of impact communication styles can have. Client Response/Progress/Benefit:: Client entered group alert and attentive, however was quiet the majority of group but appeared to be taking notes. Client reported that when she is anxious her thoughts become jumbled and she feels incompetent. Client participated in group discussion on the different types of communication styles and identified her style as, ?passive aggressive at home and passive at work.? Client benefitted from group in identifying her communication style and progress noted in client?s insight into her communication styles. Continued treatment necessary to reduce anxiety symptoms. Eye Contact:: Good Motor Activity:: Appropriate Appearance:: Casual Speech:: Appropriate Mood:: Euthymic Affect:: Full Thoughts:: Linear, Logical, No evidence of hallucinations/delusions noted Staff Interventions:: Therapist facilitated the group discussion about communication and explained the different types of communication. Therapist assisted group members in connecting the communication styles to the way they communicate and impact the communication style has on their relationships. Therapist provided support by using active listening and providing feedback.
--- NOTE | 2017-12-20 16:07 | BH.SGPN ---
Service Group Progress Note - Session Psychotherapy Session #3 Date Open:: 12/20/17 Time Started:: 11:24 Time Stopped:: 12:18 Targeted Problem #:: 1 Type of Group:: Functional Skills Development - 7 participants Goal of Group:: To identify important components of communication and practice specific, clear communication. Staff Interventions:: Therapist led the discussion about important components of effective communication. Therapist provided each group member with the same three materials and broke the group into pairs. Therapist facilitated a communication activity in which the group members would have to achieve a goal by using effective communication to achieve such goal. Therapist processed the activity with the group.
--- NOTE | 2017-12-22 14:14 | BH.SGPN ---
Service Group Progress Note - Session Psychotherapy Session #1 Date Open:: 18 - 8 group members Time Started:: 09:07 Time Stopped:: 10:12 Targeted Problem #:: 1 Type of Group:: Process Goal of Group:: The goal of today's group was to check-in with client's mood, stressors, and positives, and review homework. Client Response/Progress/Benefit:: Client responded well to session, providing supportive statements to peers. Client reports feeling still a little sad today as client's [id number]'s calling hours were last evening. Client stated she is proud of herself for allowing myself to cry, but not lose control. Client shared she has seen progress in her ability to cope with emotions in a healthy way and which has prevented setbacks. Client reported I feel able to feel emotions and handle them rather than they take over me. Client stated she plans to return to work in January which is causing some anxiety. However, client shared she feels confident in herself to use the coping skills she has learned to reduce anxiety. Client appeared to benefit from reflecting on progress she has made. Client progressing as evidenced by her report of increased self-confidence and implementation of coping skills, but can continue to benefit from maintenance. Eye Contact:: Good Motor Activity:: Appropriate Appearance:: Neat Speech:: Appropriate Mood:: Euthymic Affect:: Full Thoughts:: Linear, No evidence of hallucinations/delusions noted Staff Interventions:: Therapist used open-ended questions to elicit information about client's current stressors and mood state. Therapist was supportive by using active listening and reflection.
--- NOTE | 2017-12-22 18:08 | BH.SGPN ---
Service Group Progress Note - Session Psychotherapy Session #2 Date Open:: 12/22/17 Time Started:: 10:21 Time Stopped:: 11:14 Targeted Problem #:: 1 Type of Group:: Illness Management - 8 participants Goal of Group:: To increase understanding of pitfalls and impact can have on mental health. Staff Interventions:: Therapist facilitated discussion about pitfalls and assisted group in identifying common pitfalls that can set you back. Therapist led group in an activity to help group understand impact pitfalls can have on oneself and identify strategies that could help you get back on the right path. Therapist provided support by using active listening and providing feedback. Psychotherapy Session #3 Date Open:: 12/22/17 Time Started:: 11:22 Time Stopped:: 12:14 Targeted Problem #:: 1 Type of Group:: Functional Skills Development - 9 participants Goal of Group:: To identify personal pitfalls and what keeps them stuck from moving forward. Staff Interventions:: Therapist facilitated activity in which group members were given the task to identify personal pitfalls and what keeps them stuck from moving past the pitfall. Therapist provided group members with the homework assignment of identifying strategies that can help them overcome pitfalls.
--- NOTE | 2017-12-23 13:34 | BH.MDN ---
Multi-Disciplinary Note - Note 30-min Individual Date: 12/23/17
--- NOTE | 2017-12-23 15:54 | BH.SGPN ---
Service Group Progress Note - Session Psychotherapy Session #2 Date Open:: 12/23/17 Time Started:: 10:20 Time Stopped:: 11:10 Targeted Problem #:: 1 Type of Group:: Illness Management Goal of Group:: The goal of this session was to increase self-awareness of what is holding them back from moving towards mental wellness and discuss importance of taking action in their treatment. Eye Contact:: Good Motor Activity:: Appropriate Appearance:: Casual Speech:: Appropriate Mood:: Euthymic Affect:: Congruent Thoughts:: Linear, Logical, No evidence of hallucinations/delusions noted Staff Interventions:: Therapist facilitated discussion about what it means to take action in achieving mental health wellness. Therapist led activity in which clients were asked to identify the symptoms and things that they would like to take back control over. Therapist provided support by using active listening. Psychotherapy Session #3 Date Open:: 12/23/17 Time Started:: 11:20 Time Stopped:: 12:20 Targeted Problem #:: 1 Type of Group:: Functional Skills Development Goal of Group:: The goal of this session was to create a 30 day action plan that provides small goals that work towards taking action on one thing they would like to take back control over. Eye Contact:: Good Motor Activity:: Appropriate Appearance:: Casual Speech:: Appropriate Mood:: Euthymic Affect:: Congruent Thoughts:: Linear, Logical, No evidence of hallucinations/delusions noted Staff Interventions:: Therapist provided materials and guidance to help clients create a 30 day action plan. Therapist provided support by giving feedback and using active listening.
--- NOTE | 2017-12-24 22:27 | BH.SGPN_ITS ---
Service Group Progress Note - Session Psychotherapy Session #1 Date Open:: 12/23/17 Time Started:: 09:13 Time Stopped:: 10:14 Targeted Problem #:: 1 Type of Group:: Process - 4 participants Goal of Group:: The goal of today's group was to check-in with client's mood, stressors, and positives, review homework and introduce topic for the day. Client Response/Progress/Benefit:: Client responded well to session and was actively engaged throughout. She discussed feeling as though she has made significant progress since beginning the IOP program and is feeling more stable ; however, client disclosed recent increase in anxiety related to returning to school. She shared that her anxiety did not seem to impact her as badly when other stressors occurred throughout IOP admission. She shared taking a 3 hour nap when feeling anxious about returning to work. Client did well to identify this as a means for avoiding. 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 Client shared feeling bittersweet about her last week being next week but is glad to know that she has made progress. Eye Contact:: Good Motor Activity:: Appropriate Appearance:: Casual Speech:: Appropriate Mood:: Euthymic Affect:: Full Thoughts:: Linear, Logical, No evidence of hallucinations/delusions noted Staff Interventions:: Therapist used open-ended questions to elicit information about client's current stressors and mood state. Therapist was supportive by using active listening and reflection. Therapist utilized a quote as an aid in introducing the topic.
--- NOTE | 2017-12-26 12:01 | BH.SGPN ---
Service Group Progress Note - Session Psychotherapy Session #1 Date Open:: 12/26/17 Time Started:: 09:04 Time Stopped:: 10:20 Targeted Problem #:: 1 Type of Group:: Process - 8 participants Goal of Group:: The goal of today's group was to check-in with client's mood, stressors, and positives, review homework and introduce topic for the day. Eye Contact:: Good Motor Activity:: Appropriate Appearance:: Neat, Casual Speech:: Appropriate Mood:: Euthymic, Anxious Affect:: Full, Bright Thoughts:: Linear, Logical, No evidence of hallucinations/delusions noted Staff Interventions:: Therapist used open-ended questions to elicit information about client's current stressors and mood state. Therapist was supportive by using active listening and reflection.
--- NOTE | 2017-12-26 15:57 | BH.SGPN ---
Service Group Progress Note - Session Psychotherapy Session #2 Date Open:: 12/26/17 Time Started:: 10:30 Time Stopped:: 11:20 Targeted Problem #:: 1 Type of Group:: Illness Management Eye Contact:: Good Motor Activity:: Appropriate Appearance:: Casual Speech:: Appropriate Mood:: Euthymic, Anxious Affect:: Congruent Thoughts:: Linear, Logical, No evidence of hallucinations/delusions noted Psychotherapy Session #3 Date Open:: 12/26/17 Time Started:: 11:30 Time Stopped:: 12:20 Targeted Problem #:: 1 Type of Group:: Functional Skills Development Eye Contact:: Good Motor Activity:: Appropriate Appearance:: Casual Speech:: Appropriate Mood:: Euthymic, Anxious Affect:: Congruent Thoughts:: Linear, Logical, No evidence of hallucinations/delusions noted
--- NOTE | 2017-12-27 12:47 | BH.TPR ---
Treatment Plan Review Date of Treatment Plan Review:: 12/27/17
--- NOTE | 2017-12-27 15:09 | PCM.PN.BLA ---
Progress Note Patient seen in follow-up for bipolar 2 disorder, anxiety unspecified obstructive sleep apnea, vitamin D deficiency. History is been obtained per interview with patient, discussion with staff, review of chart. Case discussed with treatment team. Chief [id number]-R am a success story. Patient reports mood improvement over the past 2 weeks. Depressive symptoms persist but of decreased intensity 12/24. She reports that she is doing great as far as mood and anxiety. She acknowledges a stressful week. She has grief associated with the of her [id number]-lii and a family . She reports increased ruminative anxiety yesterday after going into school in preparation of returning to work in January. Decreased obsessive intrusive thoughts about . No suicidal thoughts. No suicide plan or intent. No homicidal ideation. No symptoms consistent with psychosis. Sleeping from 10 PM to 6:30 AM. Sleep interrupted recently by anxiety associated with . CPAP compliant. Appetite normal. Denies nausea vomiting or diarrhea. Complaint of dry mouth over the past year. Suspect Vyvanse may be contributing. Discontinued Abilify 2 months ago. Reports frequently moves tongue within mouth but attributes this to dry mouth. Aims negative. No current EPS. Compliant with medications including Vyvanse 40 mg daily, Lamictal 30 mg daily, Pristiq 50 mg daily. Using Lorazepam only twice within the past week. No Alcohol. Mental status exam Vital signs reviewed per nursing database. Patient is alert and oriented. She appears her stated age. She is ambulatory with normal gait and station. She is cooperative with the interview. She has good eye contact. Appropriate grooming and hygiene. No psychomotor agitation or retardation. Mood is depressed. Affect restricted. Speech is clear and of regular rate and volume. Language fluent. Thought process organized. Associations logical. Thought content significant for ruminative anxiety. Suicidal ideation no suicide plan or intent. Feels able to maintain safety. No homicidal ideation related or detected. No evidence of psychosis related to detected. Immediate recent and remote memory grossly intact. Attention and concentration are fair to good. Estimated intelligence fund of knowledge average. Judgment and insight are improving. Continue IOP with focus on discharge planning and relapse prevention. Patient will likely complete IOP in the near future. Consider receiving Vyvanse as may be contributing to oral discomfort and mouth dryness. Vyvanse may further be mood destabilizing. Encouraged ongoing compliance with Lamictal 300 mg daily and Pristiq 50 mg daily. Encouraged limited use of as needed Ativan. Follow-up with Dr. Vasques on as scheduled. Encouraged exercise. 20 minutes of Insight oriented psychotherapy regarding grief. Encouraged ongoing CPAP compliance. Continue vitamin D supplement. Will be obtained as needed. Patient acknowledges understanding and is in agreement with plan. Feels able to maintain safety. Agrees to seek help or emergency care if feeling unsafe to self or others.
--- NOTE | 2017-12-27 15:18 | PN_ITS ---
Progress Note Patient seen in follow-up for bipolar 2 disorder, anxiety unspecified obstructive sleep apnea, vitamin D deficiency. History is been obtained per interview with patient, discussion with staff, review of chart. Case discussed with treatment team. Chief [id number]-W am a success story. Patient reports mood improvement over the past 2 weeks. Depressive symptoms persist but of decreased intensity 12/24. She reports that she is doing great as far as mood and anxiety. She acknowledges a stressful week. She has grief associated with the of her [id number] and a family . She reports increased ruminative anxiety yesterday after going into school in preparation of returning to work in January. Decreased obsessive intrusive thoughts about . No suicidal thoughts. No suicide plan or intent. No homicidal ideation. No symptoms consistent with psychosis. Sleeping from 10 PM to 6:30 AM. Sleep interrupted recently by anxiety associated with . CPAP compliant. Appetite normal. Denies nausea vomiting or diarrhea. Complaint of dry mouth over the past year. Suspect Vyvanse may be contributing. Discontinued Abilify 2 months ago. Reports frequently moves tongue within mouth but attributes this to dry mouth. Aims negative. No current EPS. Compliant with medications including Vyvanse 40 mg daily, Lamictal 30 mg daily, Pristiq 50 mg daily. Using Lorazepam only twice within the past week. No Alcohol. Mental status exam Vital signs reviewed per nursing database. Patient is alert and oriented. She appears her stated age. She is ambulatory with normal gait and station. She is cooperative with the interview. She has good eye contact. Appropriate grooming and hygiene. No psychomotor agitation or retardation. Mood is depressed. Affect restricted. Speech is clear and of regular rate and volume. Language fluent. Thought process organized. Associations logical. Thought content significant for ruminative anxiety. Suicidal ideation no suicide plan or intent. Feels able to maintain safety. No homicidal ideation related or detected. No evidence of psychosis related to detected. Immediate recent and remote memory grossly intact. Attention and concentration are fair to good. Estimated intelligence fund of knowledge average. Judgment and insight are improving. Continue IOP with focus on discharge planning and relapse prevention. Patient will likely complete IOP in the near future. Consider receiving Vyvanse as may be contributing to oral discomfort and mouth dryness. Vyvanse may further be mood destabilizing. Encouraged ongoing compliance with Lamictal 300 mg daily and Pristiq 50 mg daily. Encouraged limited use of as needed Ativan. Follow- up with Dr. Vasques on as scheduled. Encouraged exercise. 20 minutes of Insight oriented psychotherapy regarding grief. Encouraged ongoing CPAP compliance. Continue vitamin D supplement. Will be obtained as needed. Patient acknowledges understanding and is in agreement with plan. Feels able to maintain safety. Agrees to seek help or emergency care if feeling unsafe to self or others.
--- NOTE | 2017-12-27 16:21 | BH.SGPN_ITS ---
Service Group Progress Note - Session Psychotherapy Session #2 Date Open:: 12/27/17 - 10 participants Time Started:: 10:21 Time Stopped:: 11:02 Targeted Problem #:: 1 Type of Group:: Illness Management Goal of Group:: To increase understanding of what strengths are and identify individual strengths. Behaviors/Verbalizations/Mental Status:: Client left for approximately ten minutes during group to speak with another provider. Client Response/Progress/Benefit:: client responded well to session, quiet, but participating when prompted. Client appeared to connect with peers' comments on the quote as evidenced by her nodding. Client shared strengths are positive attributes that a person has such as intelligence or kindness. Client identified her personal strengths as patient, persistent, being a good listener , and being mindful. Client shared she is learning to use these strengths more , although somedays are harder than others. Client appeared to benefit from identifying her strengths and how they impact mental health. Progress noted as shown by client's improved mood and use of mindfulness strategies, but can continue to benefit from IOP to prevent decompensation. Eye Contact:: Good Motor Activity:: Appropriate Appearance:: Neat Speech:: Appropriate Mood:: Euthymic Affect:: Full Thoughts:: Linear, No evidence of hallucinations/delusions noted Staff Interventions:: Therapist facilitated discussion about what are strengths and assisted group members in identifying examples of strengths. Therapist led an activity in which group members were given the opportunity to identify five personal strengths. Therapist assisted clients in connecting the importance of recognizing personal strengths. Psychotherapy Session #3 Date Open:: 12/27/17 - 9 participants Time Started:: 11:20 Time Stopped:: 12:15 Targeted Problem #:: 1 Type of Group:: Functional Skills Development Goal of Group:: To identify what gets in their way of recognizing and utilizing their strengths and identifying ways to make strengths easier to access. Client Response/Progress/Benefit:: Client responded well to session, engaging in side conversations and joking with peers at times, but active. Client reported negative thinking, anxiety, and depression can get in the way of one not acknowledging their strengths. Client stated her personal barrier to recognizing her strengths is negative self-talk. Client helped the group develop strategies to overcome these barriers such as using radical acceptance, recording progress, and communicating with positive supports. Client appeared to benefit from gaining awareness of the barriers that keep client from utilizing her strengths. Client progressing as shown by her report of generalization of coping skills, but can continue to benefit from challenging negative self-talk. Eye Contact:: Good Motor Activity:: Appropriate Appearance:: Neat Speech:: Appropriate Mood:: Euthymic Affect:: Full Thoughts:: Linear, No evidence of hallucinations/delusions noted Staff Interventions:: Therapist utilized an activity as a tool in helping clients recognize the things that can get in their way from utilizing their strengths and identify alternative strategies to overcome those barriers. Therapist processed the activity, helping others connect challenges that keep them from recognizing and using their strengths. Therapist helped clients connect the importance of utilizing supports to build personal strengths and ways to challenge negative thoughts that prevent clients from acknowledging their strengths. Therapist provided support by using active listening and providing feedback.
--- NOTE | 2017-12-27 21:47 | BH.SGPN ---
Service Group Progress Note - Session Psychotherapy Session #1 Date Open:: 12/27/17 Time Started:: 09:06 Time Stopped:: 10:15 Targeted Problem #:: 1 Type of Group:: Process - 9 participants Goal of Group:: The goal of today's group was to check-in with client's mood, stressors, and positives, review homework. Client Response/Progress/Benefit:: Client an active participant and positive contributor to the group. She did well to provide supportive feedback and encouragement as well as openly discuss thoughts, feelings, and concerns. 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 Reports that upon returning home everything frankie hit me all at once which resulted in increased agitation. Client discussed trying to go exercise on the treadmill to relieve some of her agitation however the machine was broken. She did well to recognize her ability to adapt and identify an alternative form of coping, indicating using mindfulness techniques instead. CLient benefited from processing ongoing anxiety surrounding her return to work with the group as well as frustrations related to a medication side effect. Client receptive of supportive feedback and able to identify skills she may use during times of increased anxiety. Client recommended onging IOP to further improve consistent use of emotion regulation skills as well as to prevent decompensation. Eye Contact:: Good Motor Activity:: Appropriate Appearance:: Casual Speech:: Appropriate Mood:: Euthymic, Anxious Affect:: Full Thoughts:: Linear, Logical, No evidence of hallucinations/delusions noted Staff Interventions:: Therapist used open-ended questions to elicit information about client's current stressors and mood state. Therapist reviewed homework assigned from previous groups. Therapist was supportive by using active listening and reflection.
--- NOTE | 2017-12-29 13:28 | BH.SGPN_ITS ---
Service Group Progress Note - Session Psychotherapy Session #2 Date Open:: 12/29/17 - 10 group members Time Started:: 10:25 Time Stopped:: 11:15 Targeted Problem #:: 1 Type of Group:: Illness Management Goal of Group:: To increase understanding of importance of boundaries and the different ways of setting boundaries (permeable, rigid, and flexible). Client Response/Progress/Benefit:: Client responded well to session, quiet, but participating when prompted. Client appeared to connect with the quote, sharing ?you have to have boundaries or you?ll get stressed.? Client helped the group identify the characteristics of each boundary type as well as the pros and cons. Client shared permeable or porous boundaries ?means you can?t say no to anything.? Client appeared to benefit from learning the importance of boundary setting. Progress noted as client reports overall improved mood, but can continue to benefit from coping skill maintenance. Eye Contact:: Fair Motor Activity:: Appropriate Appearance:: Neat Speech:: Appropriate Mood:: Euthymic Affect:: Constricted Thoughts:: Linear, No evidence of hallucinations/delusions noted Staff Interventions:: Therapist facilitated group discussion about defining boundaries. Therapist led discussion about importance of boundaries, assisting group members with identifying the impact of healthy and unhealthy boundaries. Therapist educated the group about the three different ways of setting boundaries and led discussion about each one. Therapist assisted clients with identifying the costs and benefits to the three different styles of boundary setting and how each style can impact mental health as well as relationships. Psychotherapy Session #3 Date Open:: 12/29/17 - 9 group members Time Started:: 11:25 Time Stopped:: 12:20 Targeted Problem #:: 1 Type of Group:: Functional Skills Development Goal of Group:: Increase awareness of current boundary style, identifying impact current way of setting boundaries has on mental health as well as relationships. Client Response/Progress/Benefit:: Client responded well to session, declining to make a visual representation, but sharing with the group. Client reported her boundaries vary depending her mood, who she is with, and what setting she is in. Client stated with her family she believes she is flexible, but at work client is rigid. Client shared when she is internalizing emotions and disqualifies her positives. Client said she tends to be porous at times as well which in the past as resulted in client taking on too much at one time. Client appeared to benefit from increasing awareness of how her boundaries impact client's mental health and relationships. Client to continue IOP to prevent decompensation and increase emotional regulation. Eye Contact:: Fair Motor Activity:: Appropriate Appearance:: Neat Speech:: Appropriate Mood:: Euthymic Affect:: Constricted Thoughts:: Linear, No evidence of hallucinations/delusions noted Staff Interventions:: Therapist provided the group member with a wide array of supplies, asking each group member to create a castle that would represent the boundaries they currently have in place. The expressive activity was used as a tool to help increase client?s self-awareness of their boundaries. Therapist processed each group member?s castle, inquiring what style the group member currently uses most frequently and how current boundary style impacts his/her mental health and relationships. Therapist provided support by using reflective listening and giving feedback.
--- NOTE | 2017-12-29 16:51 | BH.MDN ---
Multi-Disciplinary Note - Note 45-min Individual Time Started:: 12:30 Date: 12/29/17 Purpose of session/treatment goals addressed:: Purpose of session was to assess current symptoms and stressors. Other topics included: identifying treatment progress since starting IOP, identifying strategies for success, and solidifying aftercare plan details. Eye Contact:: Good Motor Activity:: Appropriate Appearance:: Casual Speech:: Appropriate Mood:: Euthymic, Anxious Affect:: Constricted Thoughts:: Linear, Logical, No evidence of hallucinations/delusions noted Staff Interventions:: Therapist utilized open ended questions to elicit pt's current symptoms and stressors. Therapist elicited pt's thoughts on treatment progress since she started IOP. Therapist collaborated with pt to identfiy strategies that can help pt maintain progress and stability post discharge. Solidfied aftercare plan post discharge from [facility]. Client Response:: Pt reported she has progressed with being able to recognize and challenge distorted thought patterns. Pt shared she is using healthy coping strategies more consistently. Reported she has decreased anxiety and depressive symptoms. Client reported she has passive thoughts of periodically, but since starting program the intensity and duration have decreased. Pt identified the following as strategies that can help her maintain her progress: exercise, mindfulness, grounding tools, radical acceptance, breathing techniques, awareness and challenging of distorted thoughts, and being social. Pt reported she will call her previous outpatient counselor to set up an appointment for next week. Pt also will follow up with Dr. Urbina for continued psychiatry care. Risks/Concerns:: Pt reports passive thoughts of , denies plan or intention to date. Future focused. Progress Toward Goals/Plan:: Pt has made significant progress on her treatment goals AEB pt reporting improved mood stability, decreased depression and anxiety, and more consistent utilization of healthy coping. Pt also reports feeling ready to return to work, reporting more confidence in her ability to manage her emotions when thinking about returning to work. Plan is for pt to discharge from [facility] tomorrow. Time Stopped:: 13:15
--- NOTE | 2017-12-29 17:02 | BH.SGPN ---
Service Group Progress Note - Session Psychotherapy Session #1 Date Open:: 12/29/17 Time Started:: 09:06 Time Stopped:: 10:19 Targeted Problem #:: 1 Type of Group:: Process - 10 participants Goal of Group:: The goal of today's group was to check-in with client's mood, stressors, and positives, review homework and introduce topic for the day. Client Response/Progress/Benefit:: Client willing to participate in session and provided some verbal input however indicated I don't have much to share. She described feeling as though she has been more positive and relaxed this past week than she has felt in a long time. She indicated that through participation in this program as well as her inpatient hospitalization she has come to a place where she feels stable enough to return to work. CLient described experiencing some increased anxiety regarding her ability to maintain gains made following discharge. She did well to identify her mother's recent health concerns may have also contributed to increased negative thinking and anxiety. Client was able to identify ways to manage these stressors as well as strategies for maintaining progress she has made. She shared reminding herself to take things slow and practicing mindfulness as potential resources. Eye Contact:: Good Motor Activity:: Appropriate Appearance:: Casual Speech:: Appropriate Mood:: Euthymic Affect:: Congruent Thoughts:: Linear, Logical, No evidence of hallucinations/delusions noted Staff Interventions:: Therapist used open-ended questions to elicit information about client's current stressors and mood state. Therapist was supportive by using active listening and reflection.
--- NOTE | 2017-12-30 09:48 | BH.AFTERPLAN ---
Aftercare Plan - Demographics Treatment End Date:: 12/30/17 Psychiatrist:: Cristina Schultz Psychiatrist Office #:: [phone] PHP/IOP Therapist:: Annemarie Briceno Therapist Phone #:: [phone] - Medications Home Medications: Home Medications Lamotrigine [Lamictal] 300 mg PO DAILY 07/17/14 Lansoprazole [Prevacid] 30 mg PO DAILY 07/17/14 Latanoprost 0.005% [Xalatan Opthalmic] 1 drop EACH EYE QHS 07/17/14 Valsartan [Diovan] 320 mg PO DAILY 07/17/14 Verapamil HCl [Verelan] 360 mg PO DAILY 07/17/14 Hydrochlorothiazide [Hctz] 25 mg PO DAILY 02/09/16 buPROPion XL [Wellbutrin Xl] 300 mg PO DAILY 02/09/16 Aspirin 325 mg PO DAILY@0800 04/01/16 - Plan Details Progress/Aftercare Plan Details:: You have shown progress with being able to recognize and challenge distorted thought patterns. You are using healthy coping strategies more consistently which seems to be having a positive impact on decrease both anxiety and depression. Progress is also noted with decreased suicidal thoughts and if you do have a passing thought of you are more equipped to challenge that thought. It's recommeded you follow up with your outpatient counselor to continue working on reinforcement of healthy skills, managing anxiety when return to work, and maintaining a positive outlook. Strategies for Success:: 1. Continue to exercise even on the days you don't want to do anythign because you know it will help you. 2. Use your mindfulness skills - 5,4,3,2,1 skill has been very helpful to ground you and bring you back to the hear and now. 3. Radical acceptance: accept the things you cannot change. Remember if you can adopt this mindset when return to work it will likely decrease negativity and give you the opportunity to enjoy your work again. 4. Keep trying the various breathing techniques to help manage anxiety in the moment. 5. Maintain self-awareness of cognitive distortions and reframe or challenge the unhelpful thoughts. 6. Start and end your day with positives. 3 positives about yourself in the morning and 3 positives from the day before bed. When we intentionally look at the positives it can help change the lens from what is bad and let us more easily see what is good. 7. Remember it's important to be social! Get out of the house and spend time with friends and family. 8. Refer back to IOP binder for refreshment of skills. 9. Good luck! Keep up using all the positive skills you have learned, I am confident you will continue to do great things! - Appointments Appointments/Referrals to Other Services:: 1. Dr. Urbina for psychiatry follow up: 01/06/18 at 6pm. 2. Yuridia Garcia at [facility] for counselin01/05/18 at 11am.
--- NOTE | 2017-12-30 12:17 | BH.IGGP_ITS ---
Aftercare Plan - Demographics Treatment End Date:: 12/30/17 Psychiatrist:: Cristina Schultz Psychiatrist Office #:: [phone] PHP/IOP Therapist:: Annemarie Briceno Therapist Phone #:: [phone] - Medications Home Medications: Home Medications Lamotrigine [Lamictal] 300 mg PO DAILY 07/17/14 Lansoprazole [Prevacid] 30 mg PO DAILY 07/17/14 Latanoprost 0.005% [Xalatan Opthalmic] 1 drop EACH EYE QHS 07/17/14 Valsartan [Diovan] 320 mg PO DAILY 07/17/14 Verapamil HCl [Verelan] 360 mg PO DAILY 07/17/14 Hydrochlorothiazide [Hctz] 25 mg PO DAILY 02/09/16 buPROPion XL [Wellbutrin Xl] 300 mg PO DAILY 02/09/16 Aspirin 325 mg PO DAILY@0800 04/01/16 - Plan Details Progress/Aftercare Plan Details:: You have shown progress with being able to recognize and challenge distorted thought patterns. You are using healthy coping strategies more consistently which seems to be having a positive impact on decrease both anxiety and depression. Progress is also noted with decreased suicidal thoughts and if you do have a passing thought of you are more equipped to challenge that thought. It's recommeded you follow up with your outpatient counselor to continue working on reinforcement of healthy skills, managing anxiety when return to work, and maintaining a positive outlook. Strategies for Success:: 1. Continue to exercise even on the days you don't want to do anythign because you know it will help you. 2. Use your mindfulness skills - 5,4,3,2,1 skill has been very helpful to ground you and bring you back to the hear and now. 3. Radical acceptance: accept the things you cannot change. Remember if you can adopt this mindset when return to work it will likely decrease negativity and give you the opportunity to enjoy your work again. 4. Keep trying the various breathing techniques to help manage anxiety in the moment. 5. Maintain self-awareness of cognitive distortions and reframe or challenge the unhelpful thoughts. 6. Start and end your day with positives. 3 positives about yourself in the morning and 3 positives from the day before bed. When we intentionally look at the positives it can help change the lens from what is bad and let us more easily see what is good. 7. Remember it's important to be social! Get out of the house and spend time with friends and family. 8. Refer back to IOP binder for refreshment of skills. 9. Good luck! Keep up using all the positive skills you have learned, I am confident you will continue to do great things! - Appointments Appointments/Referrals to Other Services:: 1. Dr. Urbina for psychiatry follow up : 01/06/18 at 6pm. 2. Yuridia Garcia at [facility] for counselin at 11am.
--- NOTE | 2017-12-30 12:32 | BH.DS ---
Discharge Summary - Demographics Date of Admission:: 11/29/17 Discharge Date: 12/30/17 Presenting Problems at Admission:: Patient referred to the behavioral health IOP post 3 week participation in [facility] at [place]. Pt's depression and anxiety worsened last fall which she associates with overwhelming work stress. 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 Pt endorsed at admission depression with anhedonia, decreased energy, and difficulty concentrating. She had intermittent thoughts of overdosing in September no suicidal thoughts since then. Discharge Diagnoses:: Bipolar 2 disorder F 31.81. Anxiety unspecified Reason for Discharge:: Pt has made signficiant progress on her treatment goals and no longer meets medical necessity for IOP level of care. - Treatment Progress During Treatment & Response: Pt has shown progress with being able to recognize and challenge distorted thought patterns. Pt has increased use of healthy coping strategies more consistently which seems to be having a positive impact on decreasing both anxiety and depression. Pt reports starting the program with depression being a 8 out of 10 with 10 being severe and now discharging with depression being a 2/3 out of 10. Progress is also noted with decreased suicidal thoughts and ability to challenge SI more effectively. Pt has responded well to treatment as evidenced by her engaging in group sessions and applying skills learned to every day life. Issues Still to be Addressed:: It's recommeded pt follow up with your outpatient counselor to continue working on reinforcement of healthy skills, managing anxiety when return to work, and maintaining a positive outlook. Discharge Recommendations/Instructions:: It's recommended pt follow up with outpatient psychiatrist for medication management as well as outpatient counselor for continued support. Pt is scheduled for follow up with Dr. Urbina for psychiatry on 01/06/18 at 6pm. Pt is scheduled with Yuridia Garcia at [facility] for counseling on 01/05/18 at 11am. Discharge Handout: Complete Discharge Handout with client on aftercare options and continuity of care.
--- NOTE | 2017-12-30 12:42 | BH.DS_ITS ---
Discharge Summary - Demographics Date of Admission:: 11/29/17 Discharge Date: 12/30/17 Presenting Problems at Admission:: Patient referred to the behavioral health IOP post 3 week participation in [facility] at [place]. Pt's depression and anxiety worsened last fall which she associates with overwhelming work stress. 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 Pt endorsed at admission depression with anhedonia, decreased energy, and difficulty concentrating. She had intermittent thoughts of overdosing in September no suicidal thoughts since then. Discharge Diagnoses:: Bipolar 2 disorder F 31.81. Anxiety unspecified Reason for Discharge:: Pt has made signficiant progress on her treatment goals and no longer meets medical necessity for IOP level of care. - Treatment Progress During Treatment & Response: Pt has shown progress with being able to recognize and challenge distorted thought patterns. Pt has increased use of healthy coping strategies more consistently which seems to be having a positive impact on decreasing both anxiety and depression. Pt reports starting the program with depression being a 8 out of 10 with 10 being severe and now discharging with depression being a 2/3 out of 10. Progress is also noted with decreased suicidal thoughts and ability to challenge SI more effectively. Pt has responded well to treatment as evidenced by her engaging in group sessions and applying skills learned to every day life. Issues Still to be Addressed:: It's recommeded pt follow up with your outpatient counselor to continue working on reinforcement of healthy skills, managing anxiety when return to work, and maintaining a positive outlook. Discharge Recommendations/Instructions:: It's recommended pt follow up with outpatient psychiatrist for medication management as well as outpatient counselor for continued support. Pt is scheduled for follow up with Dr. Urbina for psychiatry on 01/06/18 at 6pm. Pt is scheduled with Yuridia Garcia at [facility] for counseling on 01/05/18 at 11am. Discharge Handout: Complete Discharge Handout with client on aftercare options and continuity of care.
--- NOTE | 2017-12-30 15:12 | BH.SGPN ---
Service Group Progress Note - Session Psychotherapy Session #1 Date Open:: 12/30/17 - 5 group members Time Started:: 09:08 Time Stopped:: 10:15 Targeted Problem #:: 1 Type of Group:: Process Goal of Group:: The goal of today's group was to check-in with client's mood, stressors, and positives, review homework and introduce topic for the day. Client Response/Progress/Benefit:: Client responded well to session, was receptive to support from peers and able to challenge distorted thoughts. Client reports feeling scared today as client had a really bad night which client experienced dry mouth and a panic attack. Client stated she had passive suicidal thoughts as well which were fleeting. Client reported this setback caused client to question her progress and her ability to cope moving forward. However, with therapist elicitation and group support, client reframed the negative thought to I'm not falling all the way back, I'll have good days and bad days. Client appeared to benefit from challenging cognitive distortions and receiving peer support. Client seems to have progressed with overall symptom reduction and coping skill maintenance, however, client can continue to benefit from using radical acceptance to cope with external stressors. Eye Contact:: Fair Motor Activity:: Appropriate Appearance:: Neat Speech:: Appropriate Mood:: Anxious Affect:: Constricted - tearful at the beginning of group Thoughts:: Racing, No evidence of hallucinations/delusions noted Staff Interventions:: Therapist used open-ended questions to elicit information about client's current stressors and mood state. Therapist was supportive by using active listening and reflection.
--- NOTE | 2017-12-30 15:29 | BH.SGPN_ITS ---
Service Group Progress Note - Session Psychotherapy Session #2 Date Open:: 12/30/17 Time Started:: 10:20 Time Stopped:: 11:10 Targeted Problem #:: 1 Type of Group:: Illness Management - 7 participants Goal of Group:: To increase understanding of fear and explore the negative impact fear of failure can have on mental health and decision making. Client Response/Progress/Benefit:: Client was an actively engaged participant throughout and responded well to the topics covered in group. She indicated connecting with fellow participants reflectioning upon how fear of failure has impacted their lives. Client indicated tat for her Failure means no longer making progress or having set backs. She went on to explain that although she currently views failure as something negative, she has been making efforts to challenge herself to see it as opportunity. During activity portion, Client was able to challenge herself to be accepting of help from others despite not wanting to and appeared to benefit from this experience. CLient responded well to fellow participants bringing awareness to her use of negative self-talk and displayed progress in her ability to refrain from second gueesing herself for the remainder of the group. Client would benefit from continuing to work on identifying and challenging thoughts that reinforce negative core beliefs. Eye Contact:: Good Motor Activity:: Appropriate Appearance:: Casual Speech:: Appropriate Mood:: Euthymic, Anxious Affect:: Full Thoughts:: Linear, Logical, No evidence of hallucinations/delusions noted Staff Interventions:: Therapist facilitated discussion about fear and impact fear of failure can have. Therapist led group in an experiential activity in which client?s would fail numerous times throughout, but were given the opportunity to try again. Therapist led the processing of the activity and assisted clients with connecting how fear of failure impacted their decision making during the activity. Psychotherapy Session #3 Date Open:: 12/30/17 Time Started:: 11:16 Time Stopped:: 12:08 Targeted Problem #:: 1 Type of Group:: Functional Skills Development - 5 participants Goal of Group:: To identify the impact fear of failure has had on the group members lives and identify strategies to overcome fear of failure. Client Response/Progress/Benefit:: Client again did well to remain an active participant throughout. She worked with the group on processing the activity completed in previous session in which participants were challenged to complete a task that causing them to be confronted with potential failure on several occassions. CLient reflected that she found it much easier to accept help during the activity than when facing her own problems but still had difficulties in doing so. She displayed progress in her ability to challenge and redefine her current definition of failure based on what it has taught her. Client explained that failure has shown her that asking for help can be a positive thing. She benefitted from brainstorming potential strategies for overcoming the fear of failure with the group. Client indicated currently fearing she will not maintain the gains she has made in the program following discharge scheduled for today; however, did well to identify strategies for preventing this via plans to remind herself to be in the present moment, positive self-talk, and actively practicing the skills she has learned. Eye Contact:: Good Motor Activity:: Appropriate Appearance:: Casual Speech:: Appropriate Mood:: Euthymic Affect:: Congruent Thoughts:: Linear, Logical, No evidence of hallucinations/delusions noted Staff Interventions:: Therapist provided each group member with a worksheet to complete that asked questions about their experiences with fear of failure. Therapist led the processing of the worksheet, helping client?s connect how fear of failure has impacted them. Therapist provided support by using active listening and providing feedback.
--- NOTE | 2018-01-09 16:52 | BH.MDN_ITS ---
Multi-Disciplinary Note - Note 45-min Individual Time Started:: 12:30 Date: 12/29/17 Purpose of session/treatment goals addressed:: Purpose of session was to assess current symptoms and stressors. Other topics included: identifying treatment progress since starting IOP, identifying strategies for success, and solidifying aftercare plan details. Eye Contact:: Good Motor Activity:: Appropriate Appearance:: Casual Speech:: Appropriate Mood:: Euthymic, Anxious Affect:: Constricted Thoughts:: Linear, Logical, No evidence of hallucinations/delusions noted Staff Interventions:: Therapist utilized open ended questions to elicit pt's current symptoms and stressors. Therapist elicited pt's thoughts on treatment progress since she started IOP. Therapist collaborated with pt to identfiy strategies that can help pt maintain progress and stability post discharge. Solidfied aftercare plan post discharge from [facility]. Client Response:: Pt reported she has progressed with being able to recognize and challenge distorted thought patterns. Pt shared she is using healthy coping strategies more consistently. Reported she has decreased anxiety and depressive symptoms. Client reported she has passive thoughts of periodically, but since starting program the intensity and duration have decreased. Pt identified the following as strategies that can help her maintain her progress: exercise, mindfulness, grounding tools, radical acceptance, breathing techniques, awareness and challenging of distorted thoughts, and being social. Pt reported she will call her previous outpatient counselor to set up an appointment for next week. Pt also will follow up with Dr. Urbina for continued psychiatry care. Risks/Concerns:: Pt reports passive thoughts of , denies plan or intention to date. Future focused. Progress Toward Goals/Plan:: Pt has made significant progress on her treatment goals AEB pt reporting improved mood stability, decreased depression and anxiety , and more consistent utilization of healthy coping. Pt also reports feeling ready to return to work, reporting more confidence in her ability to manage her emotions when thinking about returning to work. Plan is for pt to discharge from [facility] tomorrow. Time Stopped:: 13:15
--- NOTE | 2018-01-10 16:09 | BH.SGPN_ITS ---
Service Group Progress Note - Session Psychotherapy Session #3 Date Open:: 12/20/17 Time Started:: 11:24 Time Stopped:: 12:18 Targeted Problem #:: 1 Type of Group:: Functional Skills Development - 7 participants Goal of Group:: To identify important components of communication and practice specific, clear communication. Staff Interventions:: Therapist led the discussion about important components of effective communication. Therapist provided each group member with the same three materials and broke the group into pairs. Therapist facilitated a com munication activity in which the group members would have to achieve a goal by using effective communication to achieve such goal. Therapist processed the activity with the group.
== END 2017-12-30 14:00 | disposition home or self-care (01) ==
LOC: BHIOP 09:00
PROVIDERS: Family Provider Internal Medicine; PCP Internal Medicine; Visit Provider Psychiatry & Neurology Psychiatry
DX: F31.81 Bipolar II disorder (principal); F41.9 Anxiety disorder, unspecified
CPT/HCPCS: H0035; 90832; 90834; 90853

== ENCOUNTER → 2018-04-17 10:25 | Outpatient (CLI) | payer OTHER, SELFPAY ==
--- NOTE | 2018-04-17 10:30 | MRI_ITS ---
STUDY: MRI ABDOMEN WITH AND WITHOUT CONTRAST REASON FOR EXAM: Female, 57 years old. Alkaline phosphatase elevation. Attention pancreas. TECHNIQUE: Standardized fat and water weighted pulse sequences were obtained in all 3 orthogonal planes post contrast administration. 13 ml of Gadavist contrast material was administered intravenously for the contrast portion of the examination. COMPARISON: Ultrasound liver 05/12/2017. FINDINGS: Body wall soft tissues: Morbid obesity. No acute process is otherwise evident. Lung bases: Limited evaluation, no acute process. Normal cardiac size. Normal distal esophagus. Osseous structures: Limited evaluation. Slight scoliosis and mild lumbar spondylosis. No acute process. Hepatobiliary: Hepatomegaly, greatest craniocaudal dimension of the liver 21 cm. No significant evidence of hepatic steatosis. No focal hepatic lesions, intrahepatic or ductal dilatation. The gallbladder surgically absent. Normal common bile duct. Pancreas: Mild to moderate fatty atrophy. Minimal ductal ectasia less than 3 mm. No focally suspicious. Chronic lesion or pancreatic inflammation. The main pancreatic duct joins the common bile duct at the major papilla, conventional branching anatomy. Spleen: Normal. Adrenal glands: Normal. Urogenital: Normal renal cortex bilaterally. There are a few small parapelvic cysts bilaterally. There is no hydronephrosis. There is a complex smoothly circumscribed round cyst of the left kidney mid polar medial cortex measuring 12 mm, exhibiting homogeneous low signal on T2, mildly heterogeneous high signal on T1, without apparent fat saturation, most likely to represent a complex Bosniak category 2 proteinaceous cyst. This remains incompletely characterized. Ultrasound characterization of the left renal cyst is recommended. Normal clicking systems, proximal ureters. Retroperitoneum: No mass or lymphadenopathy. Vasculature: Normal. Stomach: Normal. Small bowel and mesentery: Evaluated portions are normal. Large bowel: Evaluated portions are normal. MRI/MRI Abd WITH and W/O Contrast IMPRESSION: No acute abdominal process is evident. There is mild hepatomegaly. No biliary ductal dilatation No suspicious pink-red lesion or acute pancreatic inflammation and no significant pancreatic ductal ectasia. The complex cyst of the left kidney is probably benign. Follow-up ultrasound characterization of the left kidney is recommended. Electronically Signed: Ruslan Talbot, at 8:56 EDT Tel , Service support ,
== END ==
PROVIDERS: Family Provider Internal Medicine; PCP Internal Medicine; Visit Provider Internal Medicine
DX: R74.8 Abnormal levels of other serum enzymes (principal)
CPT/HCPCS: 74183; A9585

== ENCOUNTER 2018-04-25 13:00 | Outpatient (RCR) | payer OTHER, SELFPAY ==
--- NOTE | 2018-03-29 07:45 | HP.PTEVAL ---
Patient's Visit Information OMARI HARDY is a 57 year old F referred to Physical Therapy by Michelle Verdin with a diagnosis of Bilateral Shoulder Pain. Date of Evaluation: 03/29/18 Physical Therapist: Julia Menendez - Visit Plan Frequency: 2x /Week Duration: 4 Weeks Plan: Focus on posture- possible cervical spine involvement- mod as needed - Subjective Subjective: Patient reports that she has bilateral shoulder pain- left elbow and hand are N/T Left >right. She is right hand dominate. Symptoms started about a month ago with insidious onset. Pain at the worst is a 5/10 agg by lifting anything. Best 1/10 as she always has some s/s- eases are meloxicam. She reports pain is in the upper trap and left elbow currently. She reports the pain is dully and achy. She has a history of Fibro so she always has muscle pains. The N/T has been constant in the last 2 fingers of all the fingers for a few weeks. 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 She does do Botox for Migraines. No blurred vision or dizziness. Sleep is disturbed as she is a left side sleeper with one pillow. She walks a lot and is outside when its nice. 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 She has had no imaging of her neck/shoulders. PMHx: fibro, htn, cholesterol, depression, anxiety, possible TIA, migraines. Meds: will bring list next visit - Objective Posture: Fh, RS, increased kyphosis- raised CT junction. Gait: decreased trunk rotation. ROM: Cervical: WNL pain with SB to the left. UE: Elbow/Wrist/hand: WNL Shoulder: flexion: 160 degrees with pain, Abd: to ear with pain, IR: bra line with pain, ER: 60 degrees. Palpation: tender along medial border of the scapula, upper trap, tip of the acromion and cervical paraspinals to the occiput. Strength: Scap: poor, Shoulder: 4-/5 with pain throughout, Elbow: 5/5, Pourer Off: equal. Speical Test: positive pain repsonse with lateral epicondyle stretch to left arm, compression of cervical spine: increase s.s, Distraction: no change in s.s - Goals Goal 1:: Patient will be I with HEP and progression Goal Time Frame: 4-6 Weeks Goal 2:: Patient will maintain proper posture t/o tx session to demo increased scap s/s Goal Time Frame: 4-6 Weeks Goal 3:: Patient will demo full AROM of the shoudler with 0/10 pain Goal Time Frame: 4-6 Weeks - Rehabilitation Potential Physical Therapy Diagnosis: Patient presents with hypomobility- she has decreased painfree ROM, strength and muscular endurance leading to poor posture and increased pain with ADL's. Rehabilitation Potential: Fair - Anticipated Interventions Patient/Client Instruction: Educate patient on: Benefits of Fitness Program For the Purpose of:: To improve ability to perform ADL's Therapeutic Exercise to Include: Strength training, Endurance training, Body mechanics, Postural training, Scapular Strength/Stabilization For the Purpose of:: To improve muscle performance and motor function TENS: Yes Cryotherapy (ice pack, ice massage): Yes Thermo therapy (hot pack): Yes Ultrasound (thermal/non thermal): Yes Thank you for the opportunity to evaluate your patient. For Medicare and Medicare HMO plans, please review the plan of care and approve it. It will need to be FAXED BACK to us at [phone] for Medicare purposes. Please let me know if there are questions or concerns regarding this plan of care. Physician Signature: Date:
--- NOTE | 2018-04-25 13:21 | HP.PTDCSUM ---
HP - PT D/C Summary It has been my pleasure to treat OMARI HARDY under orders from Michelle Verdin, for the diagnosis of Bilateral Shoulder Pain for a total of 9 visit(s). Discharge Date: Please see the following information for a summary of their discharge status. - Subjective Subjective: Patient reports that she does not feel that her shoulders are getting any better. She feels the chest area is looser but she still has a lot of pain at the tip of the acromion on both sides and the left elbow is waking her up at night. She stopped taking the meloxicam and feels that has made a big difference. She is going back to see next week. She does not see a manganese heater regularly. Osiel GUTIERREZ has some answers for her as she hurts all over and is not just getting use to the pain - Pain L elbow Pain Intensity (Out of 10): 2 L Shoulder Pain Intensity (Out of 10): 2 - Objective Objective/Function: Posture: Fh, RS, increased kyphosis- raised CT junction. Gait: decreased trunk rotation. ROM: Cervical: WNL. UE: Elbow/Wrist/hand: WNL Shoulder: flexion: 180 degrees, Abd: to ear, IR: bra line with pain, ER: 60 degrees. Palpation: tender along medial border of the scapula, upper trap, tip of the acromion and cervical paraspinals to the occiput. 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 Special Test: positive pain repsonse with lateral epicondyle stretch to left arm, compression of cervical spine: increase s.s, Distraction: no change in s.s - Goals Goal 1:: Patient will be I with HEP and progression Goal Progress: Progressing Goal 2:: Patient will maintain proper posture t/o tx session to demo increased scap s/s Goal Progress: Progressing Goal 3:: Patient will demo full AROM of the shoudler with 0/10 pain Goal Progress: Goal Met - Plan Plan: Return to MD for further evaluation - D/C Information If there are questions or concerns regarding this patient's physical therapy, please feel free to call me at [phone]. Thank you for the referral of this patient. Sincerely, Julia Menendez
== END 2018-04-25 19:00 | disposition home or self-care (01) ==
LOC: PT 13:00
PROVIDERS: Family Provider Internal Medicine; PCP Internal Medicine; Visit Provider Internal Medicine
DX: M79.7 Fibromyalgia (principal); M25.519 Pain in unspecified shoulder
CPT/HCPCS: 97110; 97162; 97164

== ENCOUNTER → 2018-04-26 09:55 | Outpatient (CLI) | payer OTHER, SELFPAY ==
--- NOTE | 2018-04-26 09:58 | US_ITS ---
STUDY: RENAL ULTRASOUND - COMPLETE REASON FOR EXAM: Female, 58 years old. Left renal cyst. TECHNIQUE: Ultrasound evaluation of the kidneys was performed with real-time and static kerr-scale imaging. COMPARISON: MRI abdomen 04/17/2018. FINDINGS: RIGHT KIDNEY: Normal location of the right kidney, which is normal in size. The right kidney measures 11.1 x 6.2 x 5.9 cm. There is a normal cortex of the right kidney. The renal cortex measures 1.3 cm. There is no right renal mass or cyst. There are no right renal calculi. There is no right hydronephrosis. DISTAL RIGHT URETER: The distal ureter could not be evaluated because the urinary bladder was empty. LEFT KIDNEY: Normal location of the left kidney, which is normal in size. The left kidney measures 13.0 x 5.9 x 5.0 cm. There is a normal cortex of the left kidney. The renal cortex measures 1.1 cm. There is a 2.7 x 1.8 cm cystic structure in the region of the left renal pelvis, probably representing a peripelvic cyst. Based on comparison with the MRI images, a dilated renal pelvis is thought to be much less likely. There are no left renal calculi. There is no left hydronephrosis. DISTAL LEFT URETER: The distal ureter could not be evaluated because the urinary bladder was empty. BLADDER: The urinary bladder was empty at the time of this exam, limiting its evaluation. US/Kidney and Bladder IMPRESSION: 2.7 cm peripelvic cyst in the left kidney. Otherwise, normal exam of kidneys with no demonstrated hydronephrosis. Bladder could not be evaluated because it was empty. Electronically Signed: Bruce Hyman MD at 5:17 EDT , Service support ,
== END ==
PROVIDERS: Family Provider Internal Medicine; PCP Internal Medicine; Visit Provider Internal Medicine
DX: N28.1 Cyst of kidney, acquired (principal)
CPT/HCPCS: 76770

== ENCOUNTER → 2018-05-02 11:36 | Outpatient (CLI) | payer OTHER, SELFPAY ==
--- NOTE | 2018-05-02 11:39 | RAD_ITS ---
STUDY: X-RAY - RIGHT SHOULDER REASON FOR EXAM: Female, 58 years old. Bilateral shoulder pain times years TECHNIQUE: 4 view(s) of the shoulder. COMPARISON: None. FINDINGS: Normal glenohumeral articulation. There mild degenerative changes of the right AC joint. Normal acromion. Normal humeral head and visualized proximal humerus. The soft tissue structures are unremarkable. Normal visualized pulmonary apex. RAD/Shoulder min 2 Views IMPRESSION: Mild degenerative changes of the right AC joint. The remainder the study is unremarkable. Electronically Signed: Lucio Hull MD at 21:17 EDT , Service support ,
--- NOTE | 2018-05-02 11:39 | RAD_ITS ---
STUDY: X-RAY - LEFT SHOULDER REASON FOR EXAM: Female, 58 years old. Bilateral shoulder pain times years TECHNIQUE: 4 view(s) of the shoulder. COMPARISON: None. FINDINGS: Normal glenohumeral articulation. Normal acromioclavicular joint. Normal acromion. Normal humeral head and visualized proximal humerus. The soft tissue structures are unremarkable. Normal visualized pulmonary apex. RAD/Shoulder min 2 Views IMPRESSION: Normal x-ray examination of the shoulder. Electronically Signed: Lucio Hull MD at 21:22 EDT , Service support ,
== END ==
PROVIDERS: Family Provider Internal Medicine; PCP Internal Medicine; Visit Provider Internal Medicine
DX: M25.511 Pain in right shoulder (principal); M25.512 Pain in left shoulder
CPT/HCPCS: 73030

== ENCOUNTER 2018-05-09 10:49 | Outpatient (RCR) | payer OTHER, SELFPAY | END 2018-05-16 23:59 | LOC: NS 10:49 | PROVIDERS: Family Provider Internal Medicine; PCP Internal Medicine; Visit Provider Internal Medicine | DX: R73.01 Impaired fasting glucose (principal); Z71.3 Dietary counseling and surveillance | CPT/HCPCS: 97802 ==

== ENCOUNTER 2018-05-30 08:24 | Outpatient (RCR) | payer OTHER, SELFPAY | END 2018-06-16 23:59 | LOC: NS 08:24 | PROVIDERS: Family Provider Internal Medicine; PCP Internal Medicine; Visit Provider Internal Medicine | DX: R73.01 Impaired fasting glucose (principal); Z71.3 Dietary counseling and surveillance | CPT/HCPCS: 97803 ==

== ENCOUNTER 2018-07-10 16:30 | Outpatient (RCR) | payer OTHER, SELFPAY | END 2018-07-16 23:59 | LOC: NS 16:30 | PROVIDERS: Family Provider Internal Medicine; PCP Internal Medicine; Visit Provider Internal Medicine | DX: R73.01 Impaired fasting glucose (principal); Z71.3 Dietary counseling and surveillance | CPT/HCPCS: 97803 ==

== ENCOUNTER 2018-08-07 15:00 | Outpatient (RCR) | payer OTHER, SELFPAY | END 2018-08-16 23:59 | LOC: NS 15:00 | PROVIDERS: Family Provider Internal Medicine; PCP Internal Medicine; Visit Provider Internal Medicine | DX: R73.01 Impaired fasting glucose (principal); Z71.3 Dietary counseling and surveillance | CPT/HCPCS: 97803 ==

== ENCOUNTER 2018-09-04 16:30 | Outpatient (RCR) | payer OTHER, SELFPAY | END 2018-09-15 23:59 | LOC: NS 16:30 | PROVIDERS: Family Provider Internal Medicine; PCP Internal Medicine; Visit Provider Internal Medicine | DX: R73.01 Impaired fasting glucose (principal); Z71.3 Dietary counseling and surveillance | CPT/HCPCS: 97803 ==

== ENCOUNTER 2018-10-30 13:31 | Outpatient (RCR) | payer OTHER, SELFPAY | END 2018-10-30 23:59 | disposition home or self-care (01) | LOC: NS 13:31 | PROVIDERS: Family Provider Internal Medicine; PCP Internal Medicine; Visit Provider Internal Medicine | DX: R73.01 Impaired fasting glucose (principal); Z71.3 Dietary counseling and surveillance | CPT/HCPCS: 97803 ==

== ENCOUNTER → 2019-05-01 | Outpatient (CLI) | payer OTHER, SELFPAY ==
--- NOTE | 2019-05-01 08:44 | BD_ITS ---
STUDY: DUAL ENERGY X-RAY ABSORPTIOMETRY / DXA REASON FOR EXAM: Female, 59 years old. The patient is postmenopausal. Loss of height. TECHNIQUE: Bone Mineral Density (BMD) measurements of lumbar spine and bilateral hips were obtained. COMPARISON: Comparison is made with prior study dated April 27, 2017. FINDINGS: Lumbar Spine (L1-L4): g/cm2 (1.040) / T-score (-1.3) / Z-score (-0.3) Findings are suggestive of osteopenia with a low fracture risk. Left Femur Total: g/cm2 (0.927) / T-score (-0.6) / Z-score (0.2) Left Femoral Neck: g/cm2 (0.866) / T-score (-1.2) / Z-score (-0.1) Right Femur Total: g/cm2 (0.900) / T-score (-0.9) / Z-score (0.0) Right Femoral Neck: g/cm2 (0.832) / T-score (-1.5) / Z-score (-0.3) The T-Scores on the most recent prior examination were: Lumbar Spine (L1-L4): There has been worsening of bone density since the previous examination. Left Femur Total: which represents a worsening of 1.1%. Right Femur Total: which represents an improvement of 6.1%. BD/Dexa Bone Density Study IMPRESSION: The patient is considered osteopenic as outlined below according to World [place] Organization (WHO) criteria with a low fracture risk. There has been worsening of bone density since the previous examination. Reference Information: The T-score is the number of standard deviations above or below the standard which is normal for young adults at their peak bone mineral density. The World Health Organization (WHO) interprets the T-scores as follows: Above -1 Normal bone density Between -1 and -2.5 Osteopenia Equal to / or below -2.5 Osteoporosis As a practical clinical guideline, osteopenia may be graded as follows: Mild -1 through -1.5 Moderate -1.6 through -2.0 Severe -2.1 through -2.4 The Z-score is the number of standard deviations above or below age-matched controls. A Z-score of less than -1.5 would be considered abnormal. References: 1. NIH Osteoporosis and Related Bone Diseases http://www.osteo.org 2. International Society for Clinical Densitometry http://www.iscd.org 3. National Osteoporosis Foundation http://www.nof.org Electronically Signed: Chele Lou, at 15:31 EDT , Service support ,
== END | disposition home or self-care (01) ==
LOC: OPBD 08:35
PROVIDERS: Family Provider Internal Medicine; PCP Internal Medicine; Referring Provider Internal Medicine; Visit Provider Internal Medicine
DX: M85.80 Other specified disorders of bone density and structure, unspecified site (principal)
CPT/HCPCS: 77080

== ENCOUNTER → 2019-05-30 | Outpatient (CLI) | payer OTHER, SELFPAY ==
--- NOTE | 2019-05-30 10:33 | RAD_ITS ---
STUDY: X-RAY CHEST REASON FOR EXAM: Female, 59 years old. Wheezing. TECHNIQUE: Frontal and lateral views of the chest. COMPARISON: 07/17/2014. FINDINGS: The lungs are clear and expanded. There is no demonstrated pleural abnormality. Normal size heart. Normal mediastinum and juana. Normal visualized pulmonary arteries. Normal visualized aortic arch and descending thoracic aorta. Normal visualized thoracic spine. Normal visualized ribs, clavicles, and shoulders. There is no demonstrated abnormality of the visualized soft tissue structures of the upper abdomen. RAD/Chest PA and Lateral IMPRESSION: Normal x-ray examination of the chest. Electronically Signed: Kwesi Cuadra MD at 17:37 EDT , Service support ,
== END | disposition home or self-care (01) ==
LOC: HPRAD 10:29
PROVIDERS: Family Provider Internal Medicine; PCP Internal Medicine; Referring Provider Internal Medicine; Visit Provider Internal Medicine
DX: R06.2 Wheezing (principal)
CPT/HCPCS: 71046

== ENCOUNTER → 2019-06-04 | Outpatient (CLI) | payer OTHER, SELFPAY ==
--- NOTE | 2019-06-04 13:14 | BI_ITS ---
MAMMOGRAPHY - BILATERAL SCREENING 3-D TOMOSYNTHESIS REASON FOR EXAM: Female, 59 years old. Bilateral Screening 3-D tomosynthesis PERTINENT HISTORY: No significant family history. TECHNIQUE: 2-D mammograms and 3-D Tomosynthesis of the breast (s) were performed. CAD was performed. COMPARISON: 01/05/2018, 06/16/2015. FINDINGS: The breast composition is almost entirely fat. Scattered benign calcifications are seen. No dense spiculated masses or suspicious microcalcifications are identified. No architectural distortion is identified. There is no skin thickening or retraction. There has been no significant change since the prior study. BI/SCREEN MAMM (CAD) W/ANIVAL BILAT IMPRESSION: No mammographic signs of malignancy. Routine yearly mammograms recommended. ASSESSMENT CATEGORY: BIRADS Category 2: Benign. A letter regarding these results will be sent to the patient by the facility within 30 days. FOLLOW UP RECOMMENDATION: Yearly follow up mammogram recommended. (A) Approximately 10% of breast cancers are not detected by mammography. A normal mammogram should not delay biopsy of a clinically suspicious abnormality. Electronically Signed: Jericho Pond MD at 15:56 EDT Tel [phone], Service support ,
== END | disposition home or self-care (01) ==
LOC: OPBI 13:11
PROVIDERS: Family Provider Internal Medicine; PCP Internal Medicine; Referring Provider Internal Medicine; Visit Provider Internal Medicine
DX: Z12.31 Encounter for screening mammogram for malignant neoplasm of breast (principal)
CPT/HCPCS: 77063; 77067

== ENCOUNTER → 2019-06-11 | Outpatient (CLI) | payer SELFPAY ==
--- NOTE | 2019-06-11 14:23 | CT_ITS ---
STUDY: CARDIAC CALCIUM SCORING - CT CHEST REASON FOR EXAM: Female, 59 years old. Coronary calcium screening, over read. RADIATION DOSAGE (If Supplied By Facility): DLP = ( 243.79 ) mGycm TECHNIQUE: Axial non-enhanced images were acquired through the heart for the sole purpose of measuring coronary artery calcium. Individualized dose optimization techniques were used for this CT. COMPARISON: X-ray chest 05/30/2019, 07/17/2014 FINDINGS: Body wall soft tissues: No acute process. Upper abdomen: There is evidence of hepatic steatosis. Osseous structures: No acute process. Mediastinum: Normal esophagus. No mass or lymphadenopathy. Lungs: Visualized portions of the left lung are clear. Right upper lobe, apical segment, solid circumscribed oval pulmonary nodule measuring 5 mm, centered on axial series 3 image 4. Aorta: Nondilated, minimal arch atherosclerosis. Pulmonary arteries: Nondilated. IVC, SVC and pulmonary veins: Normal. Heart: No cardiomegaly or pericardial effusion. Coronary arteries: The left coronary artery emerges from the appropriate coronary sinus with normal-appearing branching anatomy. The origin of the right coronary artery is obscured by motion artifact. There is right coronary dominance to the PDA. RCA, no visible calcified plaque. Left main, no plaque. Circumflex, no visible plaque. LAD, tiny focus of calcified plaque at its origin, another tiny focus of calcified plaque just after the takeoff of the 1st diagonal. CT/Limited Chest CT w/CCTA IMPRESSION: The coronary calcium score is reported under separate cover with cardiology. Please see that report. 2 minimal foci of coronary calcium are observed in the proximal and mid LAD. Cardiovascular anatomy is otherwise normal. There is a 5 mm solid pulmonary nodule the right upper lobe. Nonspecific. Correlate any risk factors. On a routine basis, complete chest screening is recommended with low dose technique CT chest. The entirety of the right and left lung are not included within the [id number] of this study. Follow-up thereafter is recommended according to the Fleischner Society Criteria for surveillance purposes. If this is the only pulmonary nodule and the patient does not have any substantial risk factors such as smoking (low risk patient) no specific follow-up would be necessary. In a high-risk patient, surveillance imaging should be conducted in 1 year. Electronically Signed: Ruslan Talbot MD at 15:39 EDT Tel , Service support ,
[2019-06-11 14:37] VITALS: BP 139/71; PULSE 73; RESP 16; O2SAT 97; BMI 42.7
--- NOTE | 2019-06-11 15:13 | CA.SCORE ---
Calcium Scoring Date of Study:: 06/11/19 Coronary Calcium Scoring: High-resolution Computed Tomographic imaging of the chest was performed on [06/11/2019], with particular attention paid to the coronary arteries. Images from the examination were analyzed for the presence and extent of coronary artery calcification , using coronary calcium quantification software. The patient tolerated the procedure well and there were no complications. The results of the coronary calcification analysis are provided below. - Findings Left Main (LM): 1 Left Anterior Descending (LAD): 1 Left Circumflex (LCX): 0 Right Coronary Artery (RCA): 0 Total Agatston Score: 2 Percentile Rankinth percentile Calcium Scoring Interpretation: 0 No identifiable atherosclerotic plaque. Very low cardiovascular disease risk. <5% chance of presence coronary artery disease A Negative Examination 1-10 Minimal Plaque burden. Significant coronary artery disease very unlikely. 11-100 Mild plaque burden. Likely mild or minimal coronary atherosclerosis. 101-400 Moderate plaque burden Moderate non-obstructive coronary artery disease highly likely. Over 400 Extensive plaque burden. High likelihood of at least one significant coronary stenosis (>50% diameter) Calcium Score: 1 -10 Significant coronary artery disease very unlikely Conclusion: The above is suggestive of no significant coronary atherosclerotic plaquing. A full evaluation of cardiac risk should include assessment of all conventional risk factors and the scores and percentile rankings noted therein should be evaluated in this context.
[2019-06-13 15:28] LABS: Creatine Kinase MB 0 % (0-3); Creatine Kinase MM 100 % (97-100); Creatine Kinase,Total,Serum 98 U/L (24-173); Macro I 0 % (Not Observed); Macro II 0 % (Not Observed)
[2019-06-13 16:49] LABS: Creatine Kinase BB 0 % (0)
== END | disposition home or self-care (01) ==
LOC: CT 14:22
PROVIDERS: Family Provider Internal Medicine; PCP Internal Medicine; Referring Provider Internal Medicine; Visit Provider Internal Medicine
DX: R07.89 Other chest pain (principal); E78.2 Mixed hyperlipidemia
CPT/HCPCS: 75571; 76380; 82550; 82552; 84484

== ENCOUNTER → 2019-06-14 | Outpatient (CLI) | payer OTHER, SELFPAY ==
[2019-06-11 14:37] VITALS: BMI 42.7
--- NOTE | 2019-06-14 13:14 | PFT ---
INTRODUCTION: The patient is a 59-year-old female that presents for pulmonary function studies secondary to a diagnosis of wheezing. Respiratory therapy reports good patient effort. Bronchodilators were used during testing. INTERPRETATION: Forced expiration spirometry demonstrates no evidence of a large airways obstructive ventilatory defect. There was no significant response to aerosolized bronchodilators. Spirograms are of good quality and plateau normally. Body plethysmography was performed and reveals lung volumes to be within normal limits. Diffusing capacity by single breath CO is mildly reduced to 67% of predicted. IMPRESSION: Isolated mild reduction in diffusing capacity, which could be related to an underlying pulmonary vascular disorder such as pulmonary hypertension. There are no previous pulmonary function studies available for comparison.
== END | disposition home or self-care (01) ==
LOC: PSN 07:19
PROVIDERS: Family Provider Internal Medicine; PCP Internal Medicine; Referring Provider Internal Medicine; Visit Provider Internal Medicine
DX: R06.2 Wheezing (principal)
CPT/HCPCS: 94060; 94726; 94729

== ENCOUNTER → 2019-06-20 | Outpatient (CLI) | payer OTHER, SELFPAY ==
[2019-06-11 14:37] VITALS: BMI 42.7
--- NOTE | 2019-06-20 19:29 | STRESSREP_ITS ---
Stress Test Report Date: 06-20-19 Procedure: Exercise tolerance test/imaging study Indications: Chest pain Consent: Per the patient Procedure: The patient exercised on a Ellis protocol for 6 minutes completing Stage II achieving a peak heart rate of 148 bpm (91 % predicted maximal heart rate) with a peak blood pressure 156/74 mmHg and a peak MET capacity of 7 METs. The baseline ECG demonstrated normal sinus rhythm. The peak exercise ECG demonstrated no obvious ECG changes. There were no cardiac dysrhythmias pretest, during exercise, or recovery. The functional capacity was considered average. There was no complaint of chest discomfort during exercise or recovery. The examination was discontinued secondary to dyspnea. Impression: 1. Technically adequate (percent predicted maximal heart rate greater than 85%) exercise tolerance test 2. Peak exercise ECG with no obvious ECG changes 3. There were no cardiac dysrhythmias pretest, during exercise, or recovery 4. Nuclear images pending Myocardial perfusion imaging study: Technique: The patient was injected with 10.4 mCi of technetium 99m Cardiolite and subsequently rest SPECT Cardiolite nuclear imaging was obtained in the horizontal long, vertical long, and short axis views. The patient exercised on a Ellis protocol for 6 minutes completing Stage II achieving a peak heart rate of 148 bpm (91 % predicted maximal heart rate) with a peak blood pressure 156/74 mmHg and a peak MET capacity of 7 METs. The patient was injected with 34.7 mCi of technetium 99m Cardiolite and subsequently stress SPECT Cardiolite nuclear imaging was obtained in the horizontal long, vertical long, and short axis views. A gated Cardiolite study at peak stress was obtained. Interpretation: Rest and stress SPECT Cardiolite nuclear imaging status post realignment, normalization, and attenuation correction, demonstrates the appearance at rest of areas of diminished myocardial perfusion/tracer uptake in portions of the distal anterior/anteroseptal/anterior lateral/anterior apical and septal apical segments which appear to improve and/or normalize following stress. There is end systolic thickening and brightening. The gated Cardiolite study demonstrates myocardial thickening and inward wall motion. The reported LVEF is 62 %. Impression: 1. Rest and stress SPECT Cardiolite nuclear imaging demonstrate demonstrate myocardial perfusion changes at rest which appear to improve and/or normalize following stress appearing compatible shifting soft tissue attenuation/artifact with no myocardial perfusion changes consider diagnostic for associated stress- induced myocardial ischemia. 2. The gated Cardiolite study reports an LVEF of 62 %. This note was generated with [employer] software. It may contain incorrect words, spelling, and punctuation that were not noted in checking the note before signing.
== END | disposition home or self-care (01) ==
LOC: CVS 06:05
PROVIDERS: Family Provider Internal Medicine; PCP Internal Medicine; Referring Provider Internal Medicine; Visit Provider Internal Medicine
DX: R07.89 Other chest pain (principal)
CPT/HCPCS: 78452; 93017; A9500; A4216

== ENCOUNTER → 2019-06-22 07:17 | Outpatient (CLI) | payer OTHER, SELFPAY ==
[2019-06-11 14:37] VITALS: BMI 42.7
--- NOTE | 2019-06-22 07:19 | CT_ITS ---
STUDY: CT CHEST WITH CONTRAST REASON FOR EXAM: Female, 59 years old. Lung nodule. RADIATION DOSAGE (If Supplied By Facility): CTDIvol = ( 16.72 ) mGy, DLP = ( 776.99 ) mGycm TECHNIQUE: Transaxial imaging was performed following intravenous administration of 100cc IV Isovue 300. Multiplanar coronal and sagittal images were reformatted. Individualized dose optimization techniques were used for this CT. COMPARISON: Comparison is made with prior examination dated June 11, 2019. FINDINGS: Stable 6 mm well-defined noncalcified nodule in the apical segment of the right upper lobe. Linear density is seen in the right middle lobe suggestive of scarring. There is no demonstrated pleural abnormality. Normal heart and pericardium. Normal mediastinum. Normal hilar regions. Normal enhanced pulmonary arteries. Normal aorta arch and descending thoracic aorta. Normal osseous structures. There is no demonstrated abnormality of the visualized upper abdomen. CT/Chest WITH Contrast IMPRESSION: 6 mm well-defined noncalcified nodule in the apical segment of the right upper lobe as described. In a low risk patient, a follow-up CT scan in 12 months recommended. Electronically Signed: Chele Lou, at 13:14 EDT , Service support ,
== END ==
PROVIDERS: Family Provider Internal Medicine; PCP Internal Medicine; Referring Provider Internal Medicine; Visit Provider Internal Medicine
DX: R91.1 Solitary pulmonary nodule (principal)
CPT/HCPCS: 71260; Q9967

== ENCOUNTER → 2019-07-09 12:46 | Outpatient (CLI) | payer OTHER, SELFPAY ==
[2019-06-11 14:37] VITALS: BMI 42.7
--- NOTE | 2019-07-09 12:48 | ECHOD_ITS ---
Reason For Study: KERR Procedure This was a 2D Doppler, Color Flow transthoracic echocardiogram. The study was technically difficult. Due to body habitus. Exam performed in department. Left Ventricle Normal LV size. Left ventricular systolic function is normal. The estimated ejection fraction is 65 %. Right Ventricle Normal RV size. Normal systolic function. Atria Normal left atrium. Normal right atrium. Mitral Valve Normal mitral valve. Tricuspid Valve Normal tricuspid valve. Aortic Valve Normal aortic valve. Pulmonic Valve Normal pulmonic valve. Great Vessels Normal aortic root. The pulmonary artery is normal size. Normal inferior vena cava. Pericardium/Pleural No pericardial effusion. MMode/2D Measurements & Calculations LVIDd: 5.1 cm IVSd: 1.1 cm Ao root diam: 3.0 cm LVIDs: 3.6 cm LVPWd: 1.1 cm RVDd: 3.7 cm FS: 29.3 % LAV(MOD-bp): 32.3 ml EDV(MOD-sp4): 67.5 ml EDV(MOD-sp2): 52.5 ml LAV(MOD-bp) Indexed: 12.7 ml/m2 ESV(MOD-sp4): 21.6 ml EF(MOD-sp2): 60.3 % LAV(MOD-sp2): 31.9 ml EF(MOD-sp4): 68.1 % LAV(MOD-sp4): 30.6 ml SV(MOD-sp4): 45.9 ml SV(MOD-sp2): 31.7 ml LA A4 area: 12.5 cm2 LA dimension(2D): 4.6 cm RA A4 area: 12.2 cm2 Time Measurements MV dec time: 0.26 sec Doppler Measurements & Calculations MV A max nelson: 88.9 cm/sec Lat Peak E' Nelson: 7.7 cm/sec Med Peak E' Nelson: 8.7 cm/sec Ao V2 max: 155.6 cm/sec LV V1 max: 105.0 cm/sec PA V2 max: 130.1 cm/sec Ao max P.7 mmHg LV V1 max P.4 mmHg Interpretation Summary Normal LV size. Left ventricular systolic function is normal. Structurally normal valves. Ordering Physician: Sole Guadarrama Referring Physician: Sole Guadarrama Performed By: Christina Hernandez RDCS, RVT
== END ==
PROVIDERS: Family Provider Internal Medicine; PCP Internal Medicine; Referring Provider Internal Medicine; Visit Provider Internal Medicine
DX: R06.09 Other forms of dyspnea (principal)
CPT/HCPCS: 93306

== ENCOUNTER → 2019-07-31 07:42 | Outpatient (CLI) | payer OTHER, SELFPAY ==
[2019-06-11 14:37] VITALS: BMI 42.7
--- NOTE | 2019-07-31 07:45 | CT_ITS ---
STUDY: CT CHEST WITHOUT CONTRAST REASON FOR EXAM: Female, 59 years old. Chronic cough. Hypertension. Pulmonary nodule RADIATION DOSAGE (If Supplied By Facility): CTDIvol = ( 20.14 ) mGy, DLP = ( 819.11 ) mGycm TECHNIQUE: Transaxial imaging was performed without the administration of intravenous contrast material. Multiplanar coronal and sagittal images were reformatted. Individualized dose optimization techniques were used for this CT. COMPARISON: June 22, 2019 FINDINGS: There is stable 0.6 x 0.5 cm right upper lobe soft tissue density nodule, series 2 image 32/126. Linear scarring or atelectasis in the right middle lobe. There is no demonstrated pleural abnormality. Normal heart and pericardium. Normal mediastinum. Normal hilar regions. Normal unenhanced pulmonary arteries. There is atherosclerotic calcification of the aortic arch. Normal osseous structures. There are cholecystectomy clips in the upper abdomen CT/Chest without Contrast IMPRESSION: Stable right upper lobe nodule. Electronically Signed: Phill Valencia MD at 16:59 EDT , Service support ,
== END ==
PROVIDERS: Family Provider Internal Medicine; PCP Internal Medicine; Referring Provider Internal Medicine; Visit Provider Internal Medicine
DX: R05 Cough (principal)
CPT/HCPCS: 71250

== ENCOUNTER 2019-11-01 18:18 | Emergency (ER) | payer OTHER, SELFPAY ==
[2019-10-29 08:03] VITALS: BMI 44.5
[2019-11-01 18:20] VITALS: BP 159/102; PULSE 89; RESP 16; TEMP 37.4; O2SAT 97; BMI 42.7
[2019-11-01 18:43] VITALS: RESP 18
--- NOTE | 2019-11-01 19:00 | CT_ITS ---
STUDY: CT CERVICAL SPINE WITHOUT CONTRAST REASON FOR EXAM: Female, 59 years old. FELL DOWN STEPS,DENIES LOC,NECK PAIN -- HX:HTN RADIATION DOSAGE (If Supplied By Facility): CTDIvol = ( 29.79 ) mGy, DLP = ( 652.96 ) mGycm TECHNIQUE: High resolution transaxial imaging was performed without contrast material. Sagittal and coronal images were reconstructed. Individualized dose optimization techniques were used for this CT. COMPARISON: MR cervical spine April 14, 2016. April 14, 2012 cervical spine radiograph FINDINGS: Normal craniovertebral junction. Normal anterior atlantoaxial articulation. Normal odontoid process. Normal cervical lordosis. Normal vertebral bodies and posterior osseous elements. C2-3: Normal endplates. Normal disc height and morphology. Normal central canal and intervertebral neuroforamina. C3-4: Normal endplates. Normal disc height and morphology. Normal central canal and intervertebral neuroforamina. C4-5: Normal endplates. Normal disc height and morphology. Normal central canal and intervertebral neuroforamina. C5-6: Normal endplates. Normal disc height and morphology. Normal central canal and intervertebral neuroforamina. C6-7: Normal endplates. Normal disc height and morphology. Normal central canal and intervertebral neuroforamina. C7-T1: Normal endplates. Normal disc height and morphology. Normal central canal and intervertebral neuroforamina. Normal visualized soft tissue structures. 13 mm hypodense lesion right lobe of the thyroid. CT/Spine Cervical without Contras IMPRESSION: No fracture. Thyroid lesion on the right. Recommend nonemergent follow-up thyroid ultrasound. Electronically Signed: Babak Onofre MD at 20:01 EST , Service support ,
--- NOTE | 2019-11-01 19:00 | RAD_ITS ---
STUDY: X-RAY - PELVIS AND LEFT HIP REASON FOR EXAM: Female, 59 years old. FALL, PAIN TECHNIQUE: 3 views of the pelvis and hip. COMPARISON: None. FINDINGS: No acute fracture, dislocation or osseous destruction. Moderate bilateral hip joint arthrosis. The hip joints are normally aligned. No significant soft tissue swelling. IMPRESSION: No acute fracture or dislocation. Electronically Signed: Cliff Chatman, at 20:52 EST Tel , Service support , RAD/HIP, UNI W/ Pelvis 2-3 Views
--- NOTE | 2019-11-01 19:00 | RAD_ITS ---
STUDY: X-RAY - LEFT KNEE REASON FOR EXAM: Female, 59 years old. FALL TODAY, PAIN TECHNIQUE: 4 view(s) of the knee. COMPARISON: 10/16/15. FINDINGS: No acute displaced fracture, dislocation or osseous destruction. Possible minimal irregularity at the medial aspect of the medial femoral condyle of uncertain clinical significance. Mild joint space narrowing. No significant productive changes. No significant soft tissue swelling. RAD/Knee 4 or More Views IMPRESSION: No acute displaced fracture. Possible minimal irregularity at the medial aspect of the medial femoral condyle of uncertain clinical significance. Consider MRI for further evaluation if clinically indicated. Electronically Signed: Cliff Chatman, at 21:00 EST Tel , Service support ,
--- NOTE | 2019-11-01 19:00 | CT_ITS ---
STUDY: CT BRAIN WITHOUT CONTRAST REASON FOR EXAM: Female, 59 years old. FELL DOWN STEPS,DENIES LOC,NECK PAIN -- HX:HTN RADIATION DOSAGE (If Supplied By Facility): CTDIvol = ( 44.99 ) mGy, DLP = ( 846.73 ) mGycm TECHNIQUE: Transaxial CT imaging of the brain was performed without administration of intravenous contrast material. Individualized dose optimization techniques were used for this CT. COMPARISON: MR brain April 09, 2016 FINDINGS: Normal soft tissue structures. Normal calvarium. Normal size ventricles and extra-axial spaces for the patient''s age. Normal white matter tracts of the cerebral hemispheres. Normal basal ganglia and thalami. Normal brainstem. Normal cerebellum. There is no intracranial hemorrhage. There are no findings of an acute ischemic infarction. Normal visualized paranasal sinuses. CT/Brain/Head without Contrast IMPRESSION: Normal unenhanced CT scan of the brain. Electronically Signed: Babak Onofre MD at 19:51 EST , Service support ,
--- NOTE | 2019-11-01 21:40 | ED.DCSUM_ITS ---
- ER Visit Summary Date of Service: 11/01/19 Chief Complaint: Fall History of Present Illness: The patient is a 59 F who fell down a flight of stairs. She tripped. She complains of left knee, right hip, head and neck pain. She is on aspirin but no other blood thinners. No loss of consciousness. No other injuries or complaints. Physical Examination: Afebrile and vital signs unremarkable. Head and neck atraumatic. HEENT exam unremarkable. Neck is nontender. Heart regular. Lungs clear. Abdomen soft. Left hip and left knee are tender palpation. Good range of motion. Neurovascular intact distally. Good strength and sensation. Test Results: CT brain and cervical spine were unremarkable except for thyroid nodule. Hip and pelvis x-ray is unremarkable. No fractures. Left knee shows no fracture, but she does have a medial femoral condyle irregularity. Emergency Department Course and Treatment: Patient declined pain medicine. Imaging was fairly unremarkable except with a thyroid nodule and the left medial femoral condyle irregularity. Will place the patient on nonweightbearing status. She was given crutches. She will be treated with a course of Motrin at her request. She will follow-up with her PCP to recheck her thyroid nodule and she may need repeat x-rays of her right knee or more advanced imaging for persistent pain. Treatment Plan: As above Disposition: Discharge Impression: 1. Fall 2. Left knee pain 3. Thyroid nodule This note was generated with [employer] dictation software. It may contain incorrect words, spelling, and punctuation that were not noted in review of the chart prior to signing ED Disposition - Plan for ED Patient: Referrals: Sole Guadarrama DO [Primary Care Provider] -
--- NOTE | 2019-11-01 21:43 | ED.DEP ---
ED Disposition - Plan for ED Patient: Instructions: FALL, Mechanical Prescriptions: cycloBENZAPRine HCl [Flexeril] 10 mg PO TID PRN #20 tab PRN Reason: Muscle Spasm Prescription Printed Ibuprofen [Motrin] 800 mg PO Q8H PRN PRN #20 tab PRN Reason: Pain Or Fever Prescription Printed Referrals: Sole Guadarrama DO [Primary Care Provider] -
[2019-11-01 22:17] VITALS: RESP 16
== END 2019-11-01 22:18 | disposition home or self-care (01) ==
LOC: ED 19:02
PROVIDERS: Emergency Provider Emergency Medicine; PCP Internal Medicine
DX: M25.562 Pain in left knee (principal); E04.1 Nontoxic single thyroid nodule; M89.8X6 Other specified disorders of bone, lower leg; M25.551 Pain in right hip; M54.2 Cervicalgia; R51 Headache; W10.9XXA Fall (on) (from) unspecified stairs and steps, initial encounter; Y93.9 Activity, unspecified; Y92.9 Unspecified place or not applicable; I10 Essential (primary) hypertension; E78.00 Pure hypercholesterolemia, unspecified; F32.9 Major depressive disorder, single episode, unspecified; F41.9 Anxiety disorder, unspecified; G47.33 Obstructive sleep apnea (adult) (pediatric); Z79.82 Long term (current) use of aspirin; Z79.899 Other long term (current) drug therapy
CPT/HCPCS: 70450; 72125; 73502; 73564; 99283

== ENCOUNTER → 2019-12-13 08:46 | Outpatient (CLI) | payer OTHER, SELFPAY ==
--- NOTE | 2019-12-13 08:49 | US_ITS ---
STUDY: THYROID ULTRASOUND REASON FOR EXAM: Female, 59 years old. NODULE SEEN ON CT TECHNIQUE: Ultrasound evaluation of the thyroid was performed with real-time and static nieves-scale imaging. COMPARISON: None. FINDINGS: RIGHT LOBE: The right lobe of the thyroid gland measures 4.7 x 2.2 x 2.2 cm. There is a homogeneous echotexture. There is a complex mixed solid/cystic nodule of the mid pole measuring 2.1 x 1.8 x 1.6 cm. There is a lower pole cyst measuring 0.4 x 0.4 x 0.3 cm. LEFT LOBE: The left lobe of the thyroid gland measures 4.5 x 1.8 x 1.2 cm. There is a homogeneous echotexture. There is a lower pole cyst measuring 0.4 x 0.5 x 0.2 cm. ISTHMUS: The isthmus measures 0.3 cm. . The regional lymph nodes are normal. US/Thyroid IMPRESSION: Complex midpole nodule of the right thyroid lobe measuring 2.1 x 1.8 x 1.6 cm. Bilateral lower pole cysts. Electronically Signed: Lucio Hull MD at 19:44 EST , Service support ,
== END ==
PROVIDERS: PCP Internal Medicine; Referring Provider Internal Medicine; Visit Provider Internal Medicine
DX: E04.1 Nontoxic single thyroid nodule (principal)
CPT/HCPCS: 76536

== ENCOUNTER → 2020-01-02 | Outpatient (CLI) | payer OTHER, SELFPAY ==
--- NOTE | 2020-01-02 14:00 | ASPS_PTH ---
PATIENT: OMARI HARDY LOC: [facility] U#:[id number] AGE/SX: 59/F ROOM: RE01/02/[address]: Dr. Sagar Galo MD : 1960 BED: DIS: 01/02/2020 SPEC #: [id number] RECD: 01/02/20 16:41 STATUS: NATHALIE RESharonda #: [id number] CECY: 01/02/20 14:[address]: Sagar Galo DEPT: CYTOLOGY RECD BY: Shon Matthews ENTERED: 01/03/20 08:48 SP TYPE: ASPIRATION OTHR DR: Dr. Sole Guadarrama DO Tissues: Thyroid gland, NOS Procedures: Special Stain Group II Cytology Other HEADER OPERATION: Ultrasound-guided fine needle aspiration right thyroid PRE-OP DIAGNOSIS: Nontoxic multinodular goiter TISSUE SUBMITTED: Fine needle aspiration right thyroid slides x11 DIAGNOSIS CYTOLOGY Right thyroid nodule, ultrasound-guided FNA (smears): Adequate for evaluation. A few atypical follicular cells of undetermined significance in the background of colloid nodule with cystic changes. See comment. SJ:riley 01/03/20 COMMENT Correlation with clinical, radiologic findings and appropriate follow up are necessary. Case has been reviewed in consultation with Dr. English who concurs with the above diagnosis. IDC:AM CYTOLOGY STUDY Slides are reviewed. CYTOLOGY GROSS Received are 11 smears labeled with the patient's name and designated per the requisition as right thyroid. Submitted for staining. / riley 01/03/20 TC:5 CPT: 47276
[2020-01-02 14:08] VITALS: BMI 42.7
== END | disposition home or self-care (01) ==
LOC: LABSPEC 16:44
PROVIDERS: PCP Internal Medicine; Referring Provider Surgery; Visit Provider Surgery
DX: E04.2 Nontoxic multinodular goiter (principal)
CPT/HCPCS: 88161; 88313

== ENCOUNTER 2020-01-09 08:50 | Day surgery (SDC) | payer OTHER, SELFPAY ==
[2020-01-08 08:46] VITALS: BMI 42.7
--- NOTE | 2020-01-08 09:46 | HP_ITS ---
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: No Accompanied by: Is patient in pain?: No Allergies latex Allergy (Mild, Verified 01/08/20 08:46) rash Medications Lamotrigine [Lamictal] 300 mg PO DAILY 07/17/14 [History Confirmed 01/08/20] Lansoprazole [Prevacid] 30 mg PO DAILY 07/17/14 [History Confirmed 01/08/20] Valsartan [Diovan] 320 mg PO DAILY 07/17/14 [History Confirmed 01/08/20] Verapamil HCl [Verelan] 360 mg PO DAILY 07/17/14 [History Confirmed 01/08/20] Hydrochlorothiazide [Hctz] 25 mg PO DAILY 02/09/16 [History Confirmed 01/08/20] Aspirin 325 mg PO DAILY@0800 04/01/16 [History Confirmed 01/08/20] atorvastatin 20 mg tablet 20 mg PO DAILY 10/29/19 [History Confirmed 01/08/20] cholecalciferol (vitamin D3) 250 mcg (10,000 unit) tablet 5,000 unit PO DAILY tab 10/29/19 [History Confirmed 01/08/20] lisdexamfetamine 40 mg capsule 40 mg PO DAILY 10/29/19 [History Confirmed 01/08/20] Desvenlafaxine Succinate [Pristiq] 100 mg PO DAILY 11/01/19 [History Confirmed 01/08/20] Ibuprofen [Motrin] 800 mg PO Q8H PRN PRN #20 tab 11/01/19 [Rx Confirmed 01/08/20] krill oil 500 mg capsule mg PO 12/27/19 [History Confirmed 01/08/20] levomefolate 7.5 mg-algal oil 90.314 mg capsule 1 cap PO DAILY 12/27/19 [History Confirmed 01/08/20] magnesium 250 mg tablet 250 mg PO DAILY 12/27/19 [History Confirmed 01/08/20] mecobalamin (vitamin B12) 5,000 mcg disintegrating tablet mcg PO 12/27/19 [History Confirmed 01/08/20] [facility] Medical History Osteopenia (Acute) Osteoarthritis (Acute) Depression (Acute) HTN (hypertension) (Chronic) Hyperlipidemia (Acute) Sleep apnea (Chronic) h/o colon polyp (Acute) H/O vitamin D deficiency (Acute) Bipolar disorder, unspecified (Acute) Anxiety (Acute) Migraine with aura (Acute) PTSD (post-traumatic stress disorder) (Acute) H/O TIA (transient ischemic attack) and stroke (Acute) Unspecified glaucoma (Acute) Acid reflux (Acute) Lateral epicondylitis, left elbow (Acute) H/O fibromyalgia (Acute) H/O osteopenia (Acute) Surgical History History of cholecystectomy (Acute ~2002) History of colonoscopy (Acute ~2018) Family History Sister COPD (chronic obstructive pulmonary disease) Diabetes Hypertension Grandfather Emphysema lung Mother Diabetes Hypertension Brother Hypertension Social History (Updated 01/08/20 @ 09:[address] Sagar Galo MD) Smoking Status: Former smoker Tobacco: How many years used: 2 how long ago did patient quit smokin HPI HPI HPI: OMARI HARDY, is a 59 F who presents to the office today for HPI HPI Surgical H&P: Yes HPI: OMARI HARDY, is a 59 F who presents to the office today for Follow-up from an ultrasound-guided fine-needle aspiration of her right thyroid gland which was completed on 01/02/2020. Patient had a thyroid ultrasound completed at [facility] on 12/13/2019. This showed a 2.1 cm nodule complex in the right thyroid lobe in addition she had a 4 mm nodule on that side and on the left side she had a 5 mm nodule. She states that she does have some difficulty with swallowing it feels like her glands are swollen. She has no family history of thyroid issues Her pathology report came back as adequate for evaluation. She was noted to have a few atypical follicular cells of undetermined significance in the background of a colloid nodule with cystic changes. Her thyroid ultrasound however looks a little bit more concerning to me and the fact that she has a 2.1 cm nodule which is very atypical in its appearance on the right side. ROS General General: Yes fatigue; no weight change, appetite, colon cancer, breast cancer or weakness HEENT HEENT: Yes difficulty swallowing and swollen glands; no eye injury, eye surgery or hoarseness Endo Endocrine: No thyroid disease, diabetes mellitus, thyroid cancer, Hair loss, heat intolerance or cold intolerance Musc Musculoskeletal: Yes arthritis; no back problems, rheumatoid arthritis, gout or joint pain Cardio Cardiovascular: No murmur, pacemaker, heart disease, atrial fibrillation, high blood pressure, heart attack, heart stent, palpitations, shortness of breat with exertion or chest pain Psych Psychiatric: Yes depression and anxiety; no hearing voices Resp Respiratory: No shortness of breath, Yes sleep apnea, Yes cough, No COPD, No asthma, No emphysema, No wheezing Gastro Gastrointestinal: No abdominal pain, No nausea or vomiting, No diarrhea, Yes constipation, No blood in stool, Yes acid reflux, No hemorrhoids, No ulcers, No gallbladder problem, No black,tarry stools Anam Hematologic: Yes blood thinners, No blood disorders, No bleeding, No anemia, No blood clots Neuro Neurologic: No weakness Exam Const General: no acute distress, well developed, well hydrated Orientation: oriented to person, oriented to place, oriented to time [facility] Head: normocephalic, atraumatic Ears: external ears normal Mouth: moist mucous membranes Other: Thyroid Exam: Firmness on the right side is identified there is no other lymphadenopathy palpated Eyes Sclera: sclerae normal Pupils: normal by confrontation Neck Neck: no lymphadenopathy noted Neck mass: No Thyroid: thyroid normal, symmetrical Chest Chest palpation & inspection: normal inspection of the chest Resp Effort & Inspection: normal respiratory effort Auscultation: clear to auscultation bilaterally Percussion: percussion normal Cardio Rate: regular rate Rhythm: regular rhythm Heart Sounds: no murmurs GI Palpation: soft, no hepatosplenomegaly, no masses, nontender Rectal Exam: other Other: Rectal exam deferred. Extrem General: normal to inspection, no clubbing, cyanosis or edema Assessment & Plan Problems 1. Non-toxic multinodular goiter E04.2 Plan Given the fact that this nodule is complex and is larger than 2 cm I really think it is in her best interest that we do a right-sided thyroid lobectomy with a possible total thyroidectomy. I think that she has better than a 15% chance that this could represent a malignancy and I do not feel comfortable waiting to offer her surgery. I reviewed the risk and benefits of the procedure to include bleeding injury to the recurrent laryngeal nerves as well as parathyroid glands or other surrounding structures. She also understands that there is a risk of blood clots heart attacks pneumonias and strokes up to and including . Finally we discussed the fact that she does have other symptoms of fullness in her neck drainage and her heartburn that still is probably going to need to be worked up at a later date and is entirely unrelated to the findings that we have with her thyroid gland. Coding Level of Care Code Off vis,est,level 3 Diagnoses Non-toxic multinodular goiter E04.2 01/08/20 0947 <Electronically signed by Sagar orozco MD> Date _ Sagar Galo MD I have re-examined the patient. There are no clinical changes since date of exam.
[2020-01-09] VITALS (11 sets, daily range): BP systolic 114–133; BP diastolic 55–92; PULSE 83–93; RESP 16–20; TEMP 35.9–37.3; O2SAT 90–100; BMI 43.9
--- NOTE | 2020-01-09 | THYROID_PTH ---
PATIENT: OMARI HARDY LOC: [facility] [place] U#:[id number] AGE/SX: 59/F ROOM: RE01/09/[address]: Dr. Sagar Galo MD : 1960 BED: DIS: 01/10/2020 SPEC #: [id number] RECD: 01/09/20 13:09 STATUS: NATHALIE RESharonda #: [id number] CECY: 01/09/20 00:[address]: Sagar Galo DEPT: SURGICAL PATHOLOGY RECD BY: Shon Matthews ENTERED: 01/09/20 13:33 SP TYPE: THYROID OTHR DR: Dr. Sole Guadarrama, DO Tissues: Thyroid gland, NOS Procedures: Frozen Section (charge) Surgery Specimen Level V HEADER OPERATION: Thyroid lobectomy PRE-OP DIAGNOSIS: Nontoxic multinodular goiter E04.2 TISSUE SUBMITTED: Right lobe of thyroid FROZEN SECTION DIAGNOSIS Right lobe of thyroid mass, lobectomy: Colloid nodule with adenomatoid and degenerative change. AM:riley 01/09/20 MICROSCOPIC DIAGNOSIS Right lobe of thyroid, lobectomy: Dominant colloid nodule with fibrosis associated cystic and degenerative change. Background of colloid nodules with focal adenomatous change. Mild chronic inflammation See comment. AM:riley 01/11/20 COMMENT The largest nodule contains pseudo-fibrous capsule with associated degenerative change, cyst formation and focal microcalcifications. The remainder of the lobe contains several small colloid nodules with focal adenomatoid change. No parathyroid tissue is identified and no lymph nodes are seen. Immunohistochemistry ([id number]) supports the above diagnosis. MICROSCOPIC DESCRIPTION Slides are reviewed. GROSS DESCRIPTION Received fresh for frozen section consultation labeled with the patient's name is a specimen designated right lobe of thyroid. The specimen consists of a lobe of thyroid measuring 6.5 x 3 x 2 cm and weighing 14.5 gm. The specimen is differentially inked as follows: ischemic margin of resection - yellow, anterior surface - green and posterior surface - blue. Serial sections reveal a firm, jameson-white nodule measuring 1.5 x 2 x 1 cm that has a cystic/gelatinous cut surface. The remainder of the lobe of the thyroid is reddish-jameson in color. No additional lesions are identified. Sr Vice President section of the nodule is submitted for frozen section consultation in one block. Additional sections are submitted as follows: 25?- remainder of the nodule, 6 - isthmus at margin of resection, 7-10 - registration representative sections of uninvolved thyroidal parenchyma adjacent to and away from nodule. / AM:riley 01/10/20 TC:1 CPT: 07468, 81322
--- NOTE | 2020-01-09 | IMM_PTH ---
PATIENT: OMARI HARDY LOC: [facility] [place] U#:[id number] AGE/SX: 59/F ROOM: RE01/09/[address]: Dr. Sagar Galo MD : 1960 BED: DIS: 01/10/2020 SPEC #: [id number] RECD: 01/11/20 11:56 STATUS: NATHALIE REQ #: [id number] CECY: 01/09/20 00:[address]: Sagar Galo DEPT: IMMUNOHISTOCHEMISTRY RECD BY: Damaris Ruiz ENTERED: 01/11/20 11:56 SP TYPE: IMMUNO OTHR DR: Dr. Sole Guadarrama DO Tissues: Thyroid gland, NOS Procedures: CK19 (add) GAL-3 (add) HBME (add) CD56 (initial) PHYSICIAN & INSTITUTION [place] [id number] SPECIMEN INFORMATION: Tissue Source: Right lobe of thyroid mass Clinical Info: Nontoxic multinodular goiter Specimen Number: [id number] #2 CPT code: 83214, 18053 x3 METHODOLOGY: Deparaffinized sections of prefer/formalin-fixed tissue or PAP/DQ stained slides are incubated with monoclonal/polyclonal antibodies/oligonucleotide probes. Localization is made via biotin free immunoperoxidase method. Appropriate controls are performed and reacted as expected. Results on target cell population are indicated in the following table: RESULTS: ANTIBODY / CLONE RESULT Block 2 CD56 (123C3.D5) positive CK19 (A53-B/A2.26) positive HBME1 (HBME-1) negative GAL3 (9C4) negative These tests were developed and their performance characteristics determined by [facility]. They may not have been cleared or approved by the U.S. Food and Drug Administration. The FDA has determined that such clearance or approval is not necessary. The above immunohistochemical/dualISH markers are ordered and reviewed by the Pathologist. INTERPRETATION: Right lobe of thyroid mass, lobectomy: Consistent with colloid nodule with reparative/reactive change. AM:riley 01/14/20
[2020-01-09 09:28] LABS: Hematocrit 38.8 % (37-47); Hemoglobin 12.7 g/dL (12.0-15.0); Mean Corp Hgb Conc 32.7 g/dL (32-36); Mean Corpuscular Hgb 28.3 pg (27.0-32.0); Mean Corpuscular Volume 86.6 fL (81-99); Platelet Count 248 K/mm3 (150-450); RBC Distribution Width CV 13.7 % (11.6-14.6); RBC Distribution Width SD 43.8 fl (35.1-43.9); Red Blood Count 4.48 M/mm3 (4.2-5.4); White Blood Count 7.2 K/mm3 (4.4-11.0)
[2020-01-09] MEDS: Lactated Ringers 1,000 ML 100 ML IV ×3 (09:33→23:55)
[2020-01-09 09:36] LABS: Anion Gap 7 (5-15); BUN 17 mg/dL (7-18); BUN/Creat Ratio 18.2 RATIO (10-20); Calcium,Total 9.3 mg/dL (8.5-10.1); Chloride 105 mmol/L (98-107); Creatinine, Serum 0.93 mg/dL (0.55-1.02); EST Glomerular Filtration Rate 65 mL/min (>60); Est Glom Filt Rate - Afr Amer 79 mL/min (>60); Estimated Creatinine Clearance 61.73 ml/min; Glucose 106 mg/dL (74-106); Potassium 3.8 mmol/L (3.5-5.1); Sodium Level 140 mmol/L (136-145)
[2020-01-09] MEDS: Cefazolin 2 GM in 0.9% Normal Saline 100 ML IV (12:15)
--- NOTE | 2020-01-09 13:14 | PCM.OPRPT ---
Problem List (1) Multinodular goiter Status: Acute Report of Operation Date of Procedure: 01/09/20 Pre-Operative Diagnosis: Multinodular goiter with dominant right thyroid nodule Post-Operative Diagnosis: Same Surgery/Procedure Performed:: Right-sided thyroid lobectomy and isthmusectomy Type of Anesthesia:: General Anesthesiologist: Cheikh Fonseca Specimen's removed: Right thyroid lobe and isthmus Estimated Blood Loss (mL): < 25 cc Fluids Replaced: 700 cc LR Description of Procedure: Patient brought in the operating room placed in the supine position. Under excellent general trach intubation towel was placed underneath the shoulder blades and neck was extended sterilely prepped and draped in usual fashion. Local was injected cervical incision was made subplatysmal flaps were created with use of electrocautery. Gelpi retractor was placed inside the wound midline strap muscles were opened and started on the superior pole vessels on the right side. I took these down with harmonic dissector. I took the middle thyroidal vein down with harmonic dissector. I then went to the inferior thyroid vessels and took these down with a harmonic dissector. I rotated the gland from a lateral to medial standpoint coming down very close on Kirk's ligament I did not identify the recurrent laryngeal nerve. The gland was rotated off of Kirk's ligaments and taken off with the harmonic dissector I transected the isthmus with a harmonic dissector and sent the pathology specimen for a quick frozen section. Surgicel was placed into the operating wound after I inspected and saw very good hemostasis and nothing looks oozy. Midline strap muscles were brought together with 2-0 Vicryl subplatysmal flaps were brought together interrupted 2-0 Vicryl deep dermal stitches of 3-0 Vicryl and then a running 4-0 Monocryl. Dermabond was applied sterile dressings were applied and the patient tolerated the procedure well. Frozen section came back as adenomatous changes no signs of malignancy. - Admit VTE Documentation VTE Present on Admission: No VTE Mechan Device Prophylaxis: SCD's VTE Pharm Prophylaxis ordered?: No Reason prophylaxis not ordered:: Treatment Not Indicated
[2020-01-09] MEDS: BUPIVACAINE LIPOSOME/PF 20 ML VIAL OPERA.SITE (13:18)
[2020-01-09] MEDS: oxyCODONE 5 MG Tablet PO (16:30)
[2020-01-09] MEDS: Atorvastatin Calcium 20 MG Tablet PO (21:55)
[2020-01-10] MEDS: oxyCODONE 5 MG Tablet PO ×3 (00:43→06:41)
[2020-01-10 04:46] VITALS: BP 121/89; PULSE 79; RESP 16; TEMP 36.1; O2SAT 93
--- NOTE | 2020-01-10 08:23 | DCINST_ITS ---
Discharge Diet: Light diet - advance as tolerated - If you have questions about your diet instructions, please talk to your doctor. Discharge Activity: May Not Drive - for 1 week or while taking narcotic pain medicine. May shower in (days): 1 Lifting Restrictions: 10 pounds Call your doctor if your incision/area has: Continuous Slow Oozing, Sudden Increased Bleeding, Increased Pain/ Swelling, Increased Redness, Foul Smelling Discharge Call your doctor if you observe: Fever of 101 or Higher Suture Line Care: Avoid Pulling/Pushing, Avoid Pinching/Bending Additional Dressing/Incision Instructions:: Change or remove dressing in 4 days. Leave steri-strips in place for 1 week. Allergies/Adverse Reactions: Allergies latex Allergy (Mild, Verified 01/09/20 08:59) rash Medications to take at Discharge Lamotrigine [Lamictal] 400 mg PO DAILY 07/17/14 Lansoprazole [Prevacid] 30 mg PO DAILY 07/17/14 Valsartan [Diovan] 320 mg PO DAILY 07/17/14 Verapamil HCl [Verelan] 360 mg PO DAILY 07/17/14 Hydrochlorothiazide [Hctz] 25 mg PO DAILY 02/09/16 Aspirin 325 mg PO DAILY@0800 04/01/16 atorvastatin 20 mg tablet 20 mg PO DAILY 10/29/19 cholecalciferol (vitamin D3) 250 mcg (10,000 unit) tablet 5,000 unit PO DAILY tab 10/29/19 Desvenlafaxine Succinate [Pristiq] 100 mg PO DAILY 11/01/19 krill oil 500 mg capsule 500 mg PO DAILY 12/27/19 levomefolate 7.5 mg-algal oil 90.314 mg capsule 1 cap PO DAILY 12/27/19 magnesium 250 mg tablet 144 mg PO DAILY 12/27/19 mecobalamin (vitamin B12) 5,000 mcg disintegrating tablet 5,000 mcg PO DAILY 12/27/19 Lorazepam [Ativan] 1 mg PO BID PRN PRN 01/08/20 Primary Care Physician: Sole Guadarrama DO [Primary Care Provider] - Test Results: Test results from this visit will be discussed in further detail at your follow- up appointment, if applicable. Please Follow Up With: Kelsea Gray PA-C - [phone] When: Call to make an appointment to be seen in about 10 days.
[2020-01-10 09:46] VITALS: BP 130/87; PULSE 82; RESP 18; TEMP 36.8; O2SAT 97
--- NOTE | 2020-01-10 10:45 | NURSING ---
pt does not want to take morning medications here at the hospital.. will take them when goes home. went over the list of medications she needs to take at home.
== END 2020-01-10 11:05 | disposition home or self-care (01) ==
LOC: SDC 08:52 → AC 08:52 → MS3 01-10 07:45
PROVIDERS: Anesthesiology; PCP Internal Medicine; Referring Provider Surgery; Visit Provider Surgery
PROC: (CPT 60210; principal; 2020-01-09 10:45)
DX: E04.2 Nontoxic multinodular goiter (principal); I10 Essential (primary) hypertension; E78.5 Hyperlipidemia, unspecified; F31.9 Bipolar disorder, unspecified; M79.7 Fibromyalgia; M85.80 Other specified disorders of bone density and structure, unspecified site; G47.30 Sleep apnea, unspecified; F43.10 Post-traumatic stress disorder, unspecified; K21.9 Gastro-esophageal reflux disease without esophagitis; G43.909 Migraine, unspecified, not intractable, without status migrainosus; Z78.0 Asymptomatic menopausal state; Z86.73 Personal history of transient ischemic attack (TIA), and cerebral infarction without residual deficits; Z79.82 Long term (current) use of aspirin; Z79.899 Other long term (current) drug therapy; Z87.891 Personal history of nicotine dependence
CPT/HCPCS: 60210; 80048; 85027; 88307; 88331; 88341; 88342; 99251; J7120; G0463; J2405

== ENCOUNTER → 2020-04-16 13:15 | Outpatient (CLI) | payer OTHER, SELFPAY ==
[2020-01-09 16:06] VITALS: BMI 43.9
--- NOTE | 2020-04-16 13:26 | MRI_ITS ---
STUDY: MRI BRAIN WITH AND WITHOUT CONTRAST REASON FOR EXAM: Female, 59 years old. UNSTEADY GAIT, POSSIBLE MS TECHNIQUE: Standardized multiplanar fat and water weighted pulse sequences were obtained. IV DOTAREM 25CC was administered for the contrast portion of the examination. COMPARISON: 04/09/2016 FINDINGS: Normal size of the ventricles and extra-axial spaces for the patient''s age. Interval progression of diffuse white matter disease. Multiple somewhat rounded foci of T2 hyperintensity are present throughout the cerebral white matter. Several areas of become slightly more confluent compared to prior study. This could suggest progressing demyelinating disease. However, none of the abnormalities are associated with restricted diffusion or abnormal enhancement at this time. Normal bilateral basal ganglia. Normal thalami. There is no extra-axial fluid accumulation. Normal flow voids within the major intracranial circulation suggesting patency by spin echo criteria. Normal venous enhancement. There is no enhancing intra-axial or extra-axial abnormality. Normal sella turcica, pituitary gland, infundibular stalk, optic chiasm and hypothalamus. Normal tectal plate and pineal gland. Normal midbrain, mary and medulla. Normal cerebellum. Normal basal cisterns. Normal bilateral temporal bones. Normal bilateral internal auditory canals. No demonstrated orbital abnormality, within the constraints of a routine brain study. Normal visualized paranasal sinuses. Hyperostosis frontalis interna Normal visualized soft tissue structures. Normal visualized upper cervical spine. MRI/Brain W/WO Contrast IMPRESSION: Interval progression of diffuse white matter disease. This could suggest interval progression of demyelinating disease. However, none of the abnormalities are currently associated with restricted diffusion or abnormal enhancement. Consider correlation with CSF analysis if not already obtained. Electronically Signed: Shadi Best MD at 15:02 EDT Tel , Service support ,
== END ==
PROVIDERS: PCP Internal Medicine; Referring Provider Internal Medicine; Visit Provider Internal Medicine
DX: R26.81 Unsteadiness on feet (principal)
CPT/HCPCS: 70553; A9575

== ENCOUNTER → 2020-10-01 13:02 | Outpatient (CLI) | payer OTHER, SELFPAY ==
[2020-01-09 16:06] VITALS: BMI 43.9
--- NOTE | 2020-10-01 13:03 | BI_ITS ---
MAMMOGRAPHY - BILATERAL SCREENING REASON FOR EXAM: Female, 60 years old. Routine annual screening examination. PERTINENT HISTORY: Non-contributory. TECHNIQUE: Digital bilateral breast anival (3D mammographic acquisition) in the CC and MLO projections. 2-D mediolateral oblique (MLO) and craniocaudad (CC) views of both breasts were obtained. CAD: Full Field Digital Mammography with Computer Added Detection was performed. COMPARISON: Comparison is made with prior study dated 06/04/2019. FINDINGS: Breast Composition: The breasts are almost entirely fatty. There are no dominant masses or suspicious calcifications. Stable small benign-appearing bilateral axillary lymph nodes. No other significant abnormalities are identified. There has been no significant change since the prior study. BI/SCREEN MAMM (CAD) W/ANIVAL BILAT IMPRESSION: Stable bilateral screening mammogram. Yearly follow-up mammogram recommended. (A) ASSESSMENT CATEGORY: BIRADS Category 2: Benign. A letter regarding these results will be sent to the patient by the facility within 30 days. Approximately 10% of breast cancers are not detected by mammography. A normal mammogram should not delay biopsy of a clinically suspicious abnormality. [id number] Electronically Signed: Chele Lou, at 14:07 EST , Service support ,
== END ==
PROVIDERS: PCP Internal Medicine; Referring Provider Internal Medicine; Visit Provider Internal Medicine
DX: Z12.31 Encounter for screening mammogram for malignant neoplasm of breast (principal)
CPT/HCPCS: 77063; 77067

== ENCOUNTER → 2020-12-22 15:54 | Outpatient (CLI) | payer OTHER, SELFPAY ==
[2020-01-09 16:06] VITALS: BMI 43.9
--- NOTE | 2020-12-22 15:56 | CT_ITS ---
STUDY: CT CHEST WITHOUT CONTRAST REASON FOR EXAM: Female, 60 years old. Right lung nodule. RADIATION DOSAGE (If Supplied By Facility): CTDIvol = ( 20.12 ) mGy, DLP = ( 744.26 ) mGycm TECHNIQUE: Transaxial imaging was performed without the administration of intravenous contrast material. Multiplanar coronal and sagittal images were reformatted. Individualized dose optimization techniques were used for this CT. COMPARISON: CT of the chest, 07/31/2019. FINDINGS: The lungs are well expanded. Again seen is the 5 mm nodule within the right upper lobe noted on prior studies. This is best seen on image 33 of series 4. The lungs are otherwise clear. There is no demonstrated pleural abnormality. Normal heart and pericardium. Normal mediastinum. Normal hilar regions. Normal unenhanced pulmonary arteries. Normal aorta arch and descending thoracic aorta. Normal osseous structures. There is no demonstrated abnormality of the visualized upper abdomen. CT/Chest without Contrast IMPRESSION: 1. Stable right pulmonary nodules. Fleischner Society Guidelines (MacMahon, et al. Radiology 2017; 284(1):228-43) suggest that no further follow-up is necessary for patients with low or high risk of malignancy. 2. There is no interval change when compared to previous examination Electronically Signed: Tong Rosas DO at 22:34 EST Tel [phone], Service support ,
== END ==
PROVIDERS: PCP Internal Medicine; Referring Provider Internal Medicine Critical Care Medicine; Visit Provider Internal Medicine Critical Care Medicine
DX: R91.1 Solitary pulmonary nodule (principal)
CPT/HCPCS: 71250

== ENCOUNTER 2022-01-28 14:44 | Outpatient (CLI) | payer OTHER, SELFPAY ==
--- NOTE | 2022-01-28 14:47 | BI_ITS ---
MAMMOGRAPHY - BILATERAL SCREENING REASON FOR EXAM: Female, 61 years old. Routine annual screening examination. PERTINENT HISTORY: Non-contributory. TECHNIQUE: Digital bilateral breast anival (3D mammographic acquisition) in the CC and MLO projections. 2-D mediolateral oblique (MLO) and craniocaudad (CC) views of both breasts were obtained. CAD: Full Field Digital Mammography with Computer Added Detection was performed. COMPARISON: Comparison is made with prior study dated 10/01/2020 and 06/04/2019. FINDINGS: Breast Composition: The breasts are almost entirely fatty. There are no dominant masses or suspicious calcifications. No other significant abnormalities are identified. There has been no significant change since the prior study. BI/SCRN MAMM (CAD)W/ANIVAL BILAT IMPRESSION: Stable bilateral screening mammogram. Yearly follow-up mammogram recommended. (A) ASSESSMENT CATEGORY: BIRADS Category 1: Negative. A letter regarding these results will be sent to the patient by the facility within 30 days. Approximately 10% of breast cancers are not detected by mammography. A normal mammogram should not delay biopsy of a clinically suspicious abnormality. [id number] Electronically Signed: Chele Lou MD at 7:54 EDT ,
--- NOTE | 2022-01-28 14:57 | BD_ITS ---
STUDY: DUAL ENERGY X-RAY ABSORPTIOMETRY / DXA REASON FOR EXAM: Female, 61 years old. [id number]. Patient is postmenopausal. TECHNIQUE: Bone Mineral Density (BMD) measurements of lumbar spine and bilateral hips were obtained. COMPARISON: Comparison is made with prior study dated 05/01/2019. FINDINGS: Lumbar Spine (L1-L4): g/cm2 (0.948) / T-score (-1.0) / Z-score (0.5) Findings are suggestive of normal bone density with a low fracture risk. Left Femur Total: g/cm2 (0.860) / T-score (-0.7) / Z-score (0.3) Left Femoral Neck: g/cm2 (0.696) / T-score (-1.4) / Z-score (-0.1) Right Femur Total: g/cm2 (0.847) / T-score (-0.8) / Z-score (0.2) Right Femoral Neck: g/cm2 (0.617) / T-score (-2.1) / Z-score (-0.8) The T-Scores on the most recent prior examination were: Lumbar Spine (L1-L4): There has been improvement of bone density since the previous examination. Left Femur Total: which represents a worsening of 0.3%. Right Femur Total: which represents an improvement of 1.2%. BD/Dexa Bone Density Study IMPRESSION: The patient is considered osteopenic as outlined below according to World P[place] Organization (WHO) criteria with a moderate fracture risk. There has been improvement of bone density since the previous examination. Reference Information: The T-score is the number of standard deviations above or below the standard which is normal for young adults at their peak bone mineral density. The World Health Organization (WHO) interprets the T-scores as follows: Above -1 Normal bone density Between -1 and -2.5 Osteopenia Equal to / or below -2.5 Osteoporosis As a practical clinical guideline, osteopenia may be graded as follows: Mild -1 through -1.5 Moderate -1.6 through -2.0 Severe -2.1 through -2.4 The Z-score is the number of standard deviations above or below age-matched controls. A Z-score of less than -1.5 would be considered abnormal. References: 1. NIH Osteoporosis and Related Bone Diseases www osteo.org 2. International Society for Clinical Densitometry www iscd.org 3. National Osteoporosis Foundation www nof.org Electronically Signed: Chele Lou MD at 14:41 EDT ,
== END 2022-01-28 23:59 | disposition home or self-care (01) ==
LOC: OPBD 14:46
PROVIDERS: PCP Internal Medicine; Visit Provider Internal Medicine
DX: Z12.31 Encounter for screening mammogram for malignant neoplasm of breast (principal); Z78.0 Asymptomatic menopausal state
CPT/HCPCS: 77063; 77067; 77080

== ENCOUNTER → 2022-07-14 | Outpatient (CLI) | payer OTHER, SELFPAY ==
[2022-07-29 17:57] LABS: HPV Reflexed? NOT INDICATED
== END | disposition home or self-care (01) ==
LOC: LABSPEC 07-15 10:11
PROVIDERS: PCP Internal Medicine; Visit Provider Internal Medicine
DX: Z12.4 Encounter for screening for malignant neoplasm of cervix (principal)
CPT/HCPCS: 88175; G0145

== ENCOUNTER → 2022-07-22 | Outpatient (CLI) | payer OTHER, SELFPAY ==
--- NOTE | 2022-07-22 10:18 | US_ITS ---
STUDY: THYROID ULTRASOUND REASON FOR EXAM: Female, 62 years old. Right thyroid nodule. TECHNIQUE: Ultrasound evaluation of the thyroid was performed with real-time and static nieves-scale imaging. COMPARISON: December 13, 2019. FINDINGS: RIGHT LOBE: The right lobe is absent compatible with right thyroidectomy. Hypoechoic tissue in the thyroid fossa measuring 0.8 x 0.5 x 0.4 cm with minimal vascularity which may represent residual thyroid tissue. LEFT LOBE: The left lobe of the thyroid gland measures 4.3 x 1.9 x 1.5 cm. There is a heterogeneous echotexture. 3 well circumscribed nodules inferior pole hypoechoic measuring 0.5 x 0.6 x 0.5 cm, inferior pole hypoechoic 0.6 x 0.7 x 0.6 cm and inferior pole hypoechoic 0.4 x 0.4 x 0.3 cm. ISTHMUS: The isthmus measures 2 mm . The regional lymph nodes are normal. US/Thyroid IMPRESSION: Possible residual thyroid tissue right lobe. Subcentimeter hypoechoic nodules left lobe. Recommend follow-up ultrasound in 12 months. Electronically Signed: Blayne Diallo MD at 6:01 EDT Reading Location ID and State: [id number] / , Service support ,
--- NOTE | 2022-07-22 10:18 | US_ITS ---
STUDY: ABDOMINAL ULTRASOUND - RIGHT UPPER QUADRANT REASON FOR VISIT: Female, 62 years old elevated liver function tests. TECHNIQUE: Ultrasound evaluation of the right upper quadrant was performed with real-time and static nieves-scale imaging. TECHNICAL QUALITY: Adequate. COMPARISON: MRI abdomen April 17, 2018. FINDINGS: Liver: The liver measures 19.8 cm. There is increased echogenicity consistent with fatty infiltration. The bile ducts are within normal limits. There is hepatic color flow. The direction of portal flow is hepatopetal. There is no demonstrated mass lesion. Gallbladder absent compatible with history of cholecystectomy. Common Bile Duct (C.B.D.): The common bile duct measures 5 mm. Pancreas: Normal size of the head, body and tail of the pancreas. There is increased echogenicity of the pancreas. There is no demonstrated pancreatic mass or cyst. Right Kidney: Normal size of the right kidney. The right kidney measures 11.7 cm. Normal renal cortex. The right cortex measures 1.3 cm. There is no demonstrated renal mass or cyst. There is no right hydronephrosis. US/Abdomen Limited IMPRESSION: Mild hepatomegaly with fatty liver. Electronically Signed: Blayne Diallo MD at 4:10 EDT Reading Location ID and State: [id number] / , Service support ,
== END | disposition home or self-care (01) ==
LOC: US 10:15
PROVIDERS: PCP Internal Medicine; Visit Provider Internal Medicine
DX: E04.1 Nontoxic single thyroid nodule (principal)
CPT/HCPCS: 76536; 76705

== ENCOUNTER 2022-08-30 07:48 | Outpatient (CLI) | payer OTHER, SELFPAY ==
--- NOTE | 2022-08-30 08:39 | RAD_ITS ---
PROCEDURE: Fluoroscopic guided Hip Injection DATE: 08/30/2022. INDICATION: Female, 62 years old. Chronic hip pain. PHYSICIAN: Chele Lou M.D. MEDICATIONS: 6 mg of BETAMETHASONE and 3 cc of 1% LIDOCAINE. 2% lidocaine administered subcutaneously for local anesthesia. ACCESS SITE: Right hip. NEEDLE: 22-gauge spinal needle. FLUOROSCOPY TIME (if supplied): (1:24) minutes/seconds. One image was submitted. FINDINGS: The risks, benefits, and alternatives to the procedure were explained to the patient. The specific risks of bleeding, infection, and neurovascular injury were detailed and accepted. Witnessed informed consent was obtained. A 22-gauge spinal needle was positioned under radiographic fluoroscopic localization. Approximately 2 cc of ISOVUE-300 instilled for localization purposes. Medication was then injected. The patient tolerated the procedure well without any immediate complications. RAD/Inj/Asp Sebastian Jt Should/Hip/Knee IMPRESSION: 1. Successful fluoroscopic guided hip injection. Electronically Signed: Chele Lou MD at 10:01 EST ,
[2022-08-30] MEDS: Lidocaine 2% (5ml sdv) 5 ML VIAL.MPF INFILT (09:00)
[2022-08-30] MEDS: Betamethasone/Betamethasone 30 MG/5 ML Vial 6 MG INTRAARTIC (09:03)
[2022-08-30] MEDS: Lidocaine 1% (5 ml sdv) 5 ML Vial 3 ML INFILT (09:03)
== END 2022-08-30 23:59 | disposition home or self-care (01) ==
PROVIDERS: PCP Internal Medicine; Referring Provider Specialist; Visit Provider Specialist
DX: M25.551 Pain in right hip (principal)
CPT/HCPCS: 20610; 77002; J0702

== ENCOUNTER 2022-09-21 14:54 | Outpatient (CLI) | payer OTHER, SELFPAY ==
[2022-09-21 15:07] LABS: Absolute Lymphocyte Count 2.13 X10^3/uL (0.83-4.51); Absolute Neutrophil Count 4.4 X10^3/uL (2.0-7.7); Basophil# 0.04 X10^3/uL; Basophil% 0.6 % (0-1); Eosinophils% 2.8 % (0-5); Hemoglobin 13.1 g/dL (12.0-15.0); Lymphocyte # 2.13 X10^3/ul (0.83-4.51); Mean Corpuscular Hgb 27.4 pg (27.0-32.0); Mean Corpuscular Volume 85.8 fL (81-99); Mean Platelet Vol. 9.7 fl (6.2-12.0); Monocyte% 4.2 % (0-10); NRBC Flagged by Analyzer 0 % (0-5); Platelet Count 270 K/mm3 (150-450); RBC Distribution Width CV 14.5 % (11.6-14.6); RBC Distribution Width SD 45.7 fl (35.1-43.9); Red Blood Count 4.78 M/mm3 (4.2-5.4); White Blood Count 7.1 K/mm3 (4.4-11.0)
[2022-09-21 15:30] LABS: AST(SGOT) 31 U/L (15-37); Alanine Aminotransfer ALT/SGPT 66 U/L (13-56); Albumin, Serum 3.8 g/dL (3.2-5.0); Alkaline Phosphatase 124 U/L (45-117); Anion Gap 2 (5-15); BUN 11 mg/dL (7-18); Calcium,Total 9.3 mg/dL (8.5-10.1); Chloride 106 mmol/L (98-107); EST Glomerular Filtration Rate 60 mL/min (>60); Est Glom Filt Rate - Afr Amer 72 mL/min (>60); Globulin 3.8 g/dL (2.2-4.2); Glucose 108 mg/dL (74-106); Protein, Total 7.6 g/dL (6.4-8.2); Sodium Level 138 mmol/L (136-145); Thyroid Stim Hormone (TSH) 5.16 uIU/mL (0.358-3.74); Troponin-I HS 4 pg/mL (3.0-54.0)
== END 2022-09-21 23:59 | disposition home or self-care (01) ==
LOC: LABSPEC 14:56
PROVIDERS: PCP Internal Medicine; Referring Provider Internal Medicine; Visit Provider Internal Medicine
DX: R42 Dizziness and giddiness (principal)
CPT/HCPCS: 80053; 84443; 84484; 85025

== ENCOUNTER → 2023-02-21 | Outpatient (CLI) | payer OTHER, SELFPAY ==
--- NOTE | 2023-02-21 12:30 | BI_ITS ---
MAMMOGRAPHY - BILATERAL SCREENING REASON FOR EXAM: Female, 62 years old. Routine annual screening examination. PERTINENT HISTORY: Non-contributory. TECHNIQUE: Digital bilateral breast anival (3D mammographic acquisition) in the CC and MLO projections. 2-D mediolateral oblique (MLO) and craniocaudad (CC) views of both breasts were obtained. CAD: Full Field Digital Mammography with Computer Added Detection was performed. COMPARISON: Comparison is made with prior study dated January 28, 2022. FINDINGS: Breast Composition: The breasts are almost entirely fatty. There are no dominant masses or suspicious calcifications. Stable small benign appearing bilateral axillary lymph nodes. No other significant abnormalities are identified. There has been no significant change since the prior study. BI/SCRN MAMM (CAD)W/ANIVAL BILAT IMPRESSION: Stable bilateral screening mammogram. Yearly follow-up mammogram recommended. (A) ASSESSMENT CATEGORY: BIRADS Category 2: Benign. A letter regarding these results will be sent to the patient by the facility within 30 days. Approximately 10% of breast cancers are not detected by mammography. A normal mammogram should not delay biopsy of a clinically suspicious abnormality. [id number] Electronically Signed: Chele Lou MD at 13:42 EDT ,
== END | disposition home or self-care (01) ==
LOC: OPBI 12:28
PROVIDERS: PCP Internal Medicine; Referring Provider Internal Medicine; Visit Provider Internal Medicine
DX: Z12.31 Encounter for screening mammogram for malignant neoplasm of breast (principal)
CPT/HCPCS: 77063; 77067

== ENCOUNTER 2023-06-01 13:30 | Outpatient (RCR) | payer OTHER, SELFPAY ==
--- NOTE | 2023-04-05 15:34 | HP.PTEVAL_ITS ---
Patient's Visit Information OMARI HARDY is a 62 year old F referred to Physical Therapy by Dr. Sole Guadarrama, with a diagnosis of LUMBAR RADICULAPATHY. Date of Evaluation: 04/05/23 Physical Therapist: Jan Aceves, PT, Cert MDT, OCS - Visit Plan Frequency: 2x /Week Duration: 4 Weeks Plan: PT INTERVENTIONS RIGHT HIP STRETCHING , RIGHT HIP STENGTHENING ,DLS ABD/BACK , AND POSTURAL EX'S , - Subjective This 62 y/o female presents to physical therapy with lumbar radiculopathy . Patient developed lateral hip to groin area. Etiology of pain could be kicking ball to dog. Patient initially ,seen Dr Rendon for hip and wanted to do MRI but therapy . Patient also developed back pain Bebe developed back pain. Lumbar symptoms aggravating factors walking, bending ,lifting and standing . Alleviating factors over counter medication. Coughing/sneezing -. Bowel/bladder . Denies paresthesia/tingling-occasional in hips. Hip pain in right side in groin right squatting/kneel ,walking/standing. Patient sleeping okay. Patient had x-rays -.Patient pain affects QOL and function. Patient goals to have no pain . Dr Guadarrama referred to [facility] for hip. SOCAIL : . 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 GAIT: reciprocal pattern mild forward posture decrease stance time LLE. NEURO: denies paresthesia/tingling ,reflexes L3-4,L4-5 ,L5-S1. PALAPTION: unremarkable. SYMMTRIES: align. FLEXABLITYT: hamstrings. PROM: hip flexion 100 degrees pain ,ER 60 pain ,IR 45 degrees pain. LUMBAR ROM: flexion min loss ,extension WFL ,side glides min loss. MMT: quads/hams 4/5 ,hip flexion 4/5 ,ankle 5/5 - Special Tests L/S Slump test left side: Negative L/S Slump test right side: Negative L/S Left Straight Leg Raise: Negative L/S Right Straight Leg Raise: Negative R Hip Scour: Positive R Hip VINI - Intraarticular Pathology: Positive R Hip Impingement Provocation - Labrum: Positive - Balance/Special Test Scores Lower Extremity Functional Score: 40 - Goals Goal 1:: Patient to be I with HEP Goal Time Frame: 4-6 Weeks Goal 2:: Patient to demonstrate decrease hip pain and and back pain to improve function with walking standing Goal Time Frame: 4-6 Weeks Goal 3:: Patient to improve hip ROM without pain to improve walking/standing Goal Time Frame: 4-6 Weeks Goal 4:: Patient improve lumbar ROM for function of recovery to ability with ADLS and job demands Goal Time Frame: 4-6 Weeks Goal 5:: Patient to improve LFES score by 5-10 points to improve QOL and function Goal Time Frame: 4-6 Weeks - Rehabilitation Potential Physical Therapy Diagnosis: This patient has right hip pain possible capsular involvement seen Dr Rendon for labral ,also has developed LBP with decrease ROM hip with pain , with pain with walking and standing in hip and pain in back occurs with motion testing and positioning thus will benefit from skilled PT Rehabilitation Potential: Good - Anticipated Interventions Patient/Client Instruction: Educate patient on: Condition, Plan of Care For the Purpose of:: To increase ROM, To improve muscle performance and motor function, To improve ability to perform ADL's, To increase tolerance to activity/condition/position, To improve ability of physical actions for home/community/work/leisure, To improve health of tissue, To decrease soft tissue restriction, To increase flexibility/ROM, To prevent re-injury Therapeutic Exercise to Include: Strength training, Postural training, Flexibilty training, Active ROM, Dynamic Lumbar Stabilization For the Purpose of:: To decrease pain, To increase ROM, To improve muscle performance and motor function, To increase tolerance to activity/condition/position, To improve ability of physical actions for home/community/work/leisure, To improve health of tissue, To decrease soft tissue restriction, To increase flexibility/ROM, To reduce risk of recurrence, T o prevent re-injury Thank you for the opportunity to evaluate your patient. For Medicare and Medicare HMO plans, please review the plan of care and approve it. It will need to be FAXED BACK to us at [phone] for Medicare purposes. For Medicare only, by signing this I certify the plan of care. Please let me know if there are questions or concerns regarding this plan of care. Physician Signature: Date:
--- NOTE | 2023-06-01 13:51 | HP.PTDCSUM_ITS ---
Discharge Summary D/C summary: It has been my pleasure to treat OMARI HARDY referred by Dr. Sole Guadarrama DO, with the diagnosis of LUMBAR RADICULAPATHY for a total of 13 visit(s). Discharge Date: 06/01/23 Please see the following information for a summary of their discharge status. Subjective Subjective: Doing better overall . low back and no hip Pain Right Hip: Pain Intensity (Out of 10): 1 Bilateral Back: Pain Intensity (Out of 10): 2 Left Shoulder: Pain Intensity (Out of 10): 0 Overall Improvement % Improvement: 75 Objective Objective/Function: POSTURE: mild forward posture. GAIT: reciprocal pattern mild forward posture decrease stance time LLE. NEURO: denies paresthesia/tingling ,reflexes L3-4,L4-5 ,L5-S1. PALAPTION: unremarkable. SYMMTRIES: align. FLEXABLITYT: hamstrings. PROM: hip flexion 105 degrees pain ,ER 70 ,IR 55 degrees pain. LUMBAR ROM: flexion min loss ,extension WFL ,side glides min loss. MMT: quads/hams 4/5 ,hip flexion 4/5 ,ankle 5/5 Goals Goal 1:: Patient to be I with HEP Goal Progress: Goal Met Goal 2:: Patient to demonstrate decrease hip pain and and back pain to improve function with walking standing Goal Progress: Goal Met Goal 3:: Patient to improve hip ROM without pain to improve walking/standing Goal Progress: Goal Met Goal 4:: Patient improve lumbar ROM for function of recovery to ability with ADLS and job demands Goal Progress: Goal Met Goal 5:: Patient to improve LFES score by 5-10 points to improve QOL and function Goal Progress: Goal Met Plan Plan: D/C TO GYM AND HEP D/C Information d/c sentence: If there are questions or concerns regarding this patient's physical therapy, ondina barnhart feel free to call me at [phone]. Thank you for the referral of this patient. Sincerely, Jan Aceves, PT, Cert MDT, OCS Balance/Gait/Functional tests Balance/Special Test Scores Oswestry Low Back Score: 0 Lower Extremity Functional Score: 40
== END 2023-06-01 19:00 | disposition home or self-care (01) ==
LOC: PT 13:30
PROVIDERS: PCP Internal Medicine; Referring Provider Internal Medicine; Visit Provider Internal Medicine
DX: M54.16 Radiculopathy, lumbar region (principal)
CPT/HCPCS: 97110; 97162; 97530

== ENCOUNTER → 2024-04-12 | Outpatient (CLI) | payer OTHER, SELFPAY ==
--- NOTE | 2024-04-12 11:51 | US_ITS ---
EXAM: US SOFT TISSUES HEAD AND NECK, THYROID CLINICAL INDICATION: right thyroid nodule TECHNIQUE: Beebe scale and color doppler imaging was performed of the thyroid gland. COMPARISON: US Thyroid dated 07/22/2022 FINDINGS: LEFT THYROID LOBE: Left thyroid lobe measures 5.3 x 2.3 x 1.8 cm. Somewhat diffusely nodular echotexture of the left thyroid lobe. A stable 6 mm nodule noted within the lower pole demonstrates solid and partially cystic lesion, well-defined and without microcalcification. TI-RADS points: 2. TI-RADS category: TR2. This nodule is not suspicious and no FNA or follow-up is necessary. Similar smaller lesions noted within the left thyroid lobe. RIGHT THYROID LOBE: Patient is status post right thyroidectomy. Persistent 8 mm nodular density within the right thyroid bed not significantly changed in appearance from prior exam. Homogeneous echotexture with normal vascularity. ISTHMUS: Normal. No thyroid nodules are present. LYMPH NODES: 15 x 7 mm right-sided cervical lymph nodes seen at the level of the right thyroid gland with normal internal architecture. US/Thyroid IMPRESSION: Stable thyroid ultrasound. Electronically Signed: Melchor Gates MD at 11:15 EDT ,
== END | disposition home or self-care (01) ==
LOC: US 11:49
PROVIDERS: PCP Internal Medicine; Referring Provider Internal Medicine; Visit Provider Internal Medicine
DX: E04.1 Nontoxic single thyroid nodule (principal)
CPT/HCPCS: 76536

== ENCOUNTER → 2024-05-14 | Outpatient (CLI) | payer OTHER, SELFPAY ==
--- NOTE | 2024-05-14 10:54 | US_ITS ---
STUDY: ABDOMINAL ULTRASOUND - RIGHT UPPER QUADRANT REASON FOR VISIT: Female, 64 years old fatty liver TECHNIQUE: Ultrasound evaluation of the right upper quadrant was performed with real-time and static nieves-scale imaging. TECHNICAL QUALITY: Adequate. COMPARISON: Comparison is made with prior study July 22, 2022. FINDINGS: Liver: The liver measures 17.4 cm. There is increased echogenicity consistent with fatty infiltration. The bile ducts are within normal limits. There is hepatic color flow. The direction of portal flow is hepatopetal. There is no demonstrated mass lesion. Gallbladder: The patient is status post cholecystectomy. Common Bile Duct (C.B.D.): The common bile duct measures 7.6 mm. Pancreas: Normal size of the head, body and of the pancreas. The tail portion is obscured with overlying bowel gas. There is normal echogenicity of the pancreas. There is no demonstrated pancreatic mass or cyst. Right Kidney: Normal size of the right kidney. The right kidney measures 12.3 cm x 5.8 cm x 5.5 cm. Normal renal cortex. The right cortex measures 1.5 cm. There is no demonstrated renal mass or cyst. There is no right hydronephrosis. US/Abdomen Limited IMPRESSION: Mild hepatomegaly and fatty infiltration of the liver. Electronically Signed: Chele Lou MD at 14:00 EDT ,
== END | disposition home or self-care (01) ==
PROVIDERS: PCP Internal Medicine; Referring Provider Internal Medicine; Visit Provider Internal Medicine
DX: K76.0 Fatty (change of) liver, not elsewhere classified (principal)
CPT/HCPCS: 76705

== ENCOUNTER → 2024-05-29 | Outpatient (CLI) | payer OTHER, SELFPAY ==
--- NOTE | 2024-05-29 13:51 | BD_ITS ---
STUDY: DUAL ENERGY X-RAY ABSORPTIOMETRY / DXA REASON FOR EXAM: Female, 64 years old. 627.8Menopausal postmenopausalBONE DENSITY REASON FOR EXAM TECHNIQUE: Bone Mineral Density (BMD) measurements of lumbar spine and bilateral hips were obtained. COMPARISON: Comparison is made with prior study dated January 28, 2022. FINDINGS: Lumbar Spine (L1-L4): g/cm2 (0.839) / T-score (-2.2) / Z-score (-0.5) Findings are suggestive of osteopenia with a high fracture risk. Left Femur Total: g/cm2 (0.896) / T-score (-0.4) / Z-score (0.7) Left Femoral Neck: g/cm2 (0.678) / T-score (-1.5) / Z-score (-0.1) Right Femur Total: g/cm2 (0.908) / T-score (-0.3) / Z-score (0.8) Right Femoral Neck: g/cm2 (0.568) / T-score (-2.5) / Z-score (-1.1) The T-Scores on the most recent prior examination were: Lumbar Spine (L1-L4): There has been worsening of bone density since the previous examination. Left Femur Total: which represents an improvement of 4.2%. Right Femur Total: which represents an improvement of 7.1%. BD/Dexa Bone Density Study IMPRESSION: The patient is considered osteopenic as outlined below according to World P[place] Organization (WHO) criteria with a high fracture risk. There has been improvement of bone density since the previous examination. Reference Information: The T-score is the number of standard deviations above or below the standard which is normal for young adults at their peak bone mineral density. The World Health Organization (WHO) interprets the T-scores as follows: Above -1 Normal bone density Between -1 and -2.5 Osteopenia Equal to / or below -2.5 Osteoporosis As a practical clinical guideline, osteopenia may be graded as follows: Mild -1 through -1.5 Moderate -1.6 through -2.0 Severe -2.1 through -2.4 The Z-score is the number of standard deviations above or below age-matched controls. A Z-score of less than -1.5 would be considered abnormal. References: 1. NIH Osteoporosis and Related Bone Diseases www osteo.org 2. International Society for Clinical Densitometry www iscd.org 3. National Osteoporosis Foundation www nof.org Electronically Signed: Chele Lou MD at 11:29 EDT ,
--- NOTE | 2024-05-29 13:51 | BI_ITS ---
MAMMOGRAPHY - BILATERAL SCREENING REASON FOR EXAM: Female, 64 years old. Routine annual screening examination. PERTINENT HISTORY: Non-contributory. TECHNIQUE: Digital bilateral breast anival (3D mammographic acquisition) in the CC and MLO projections. 2-D mediolateral oblique (MLO) and craniocaudad (CC) views of both breasts were obtained. CAD: Full Field Digital Mammography with Computer Added Detection was performed. COMPARISON: Comparison is made with prior study dated February 21, 2023 and January 28, 2022. FINDINGS: Breast Composition: The breasts are almost entirely fatty. There are no dominant masses or suspicious calcifications. No other significant abnormalities are identified. There has been no significant change since the prior study. BI/SCRN MAMM (CAD)W/ANIVAL BILAT IMPRESSION: Stable bilateral screening mammogram. Yearly follow-up mammogram recommended. (A) ASSESSMENT CATEGORY: BIRADS Category 1: Negative. A letter regarding these results will be sent to the patient by the facility within 30 days. Approximately 10% of breast cancers are not detected by mammography. A normal mammogram should not delay biopsy of a clinically suspicious abnormality. [id number] Electronically Signed: Chele Lou MD at 15:02 EDT ,
== END | disposition home or self-care (01) ==
LOC: OPBD 13:49
PROVIDERS: PCP Internal Medicine; Referring Provider Internal Medicine; Visit Provider Internal Medicine
DX: Z12.31 Encounter for screening mammogram for malignant neoplasm of breast (principal); Z78.0 Asymptomatic menopausal state
CPT/HCPCS: 77063; 77067; 77080

== ENCOUNTER → 2025-01-07 | Outpatient (CLI) | payer OTHER, SELFPAY | END | disposition home or self-care (01) | LOC: LABSPEC 15:11 | PROVIDERS: PCP Internal Medicine; Referring Provider Internal Medicine; Visit Provider Internal Medicine | DX: R30.0 Dysuria (principal) | CPT/HCPCS: 87086; 87088 ==

== ENCOUNTER → 2025-01-15 | Outpatient (CLI) | payer OTHER, SELFPAY ==
--- NOTE | 2025-01-15 13:07 | US_ITS ---
PROCEDURE: KIDNEY AND BLADDER (USKI), 01/15/2025 REASON FOR EXAM: US KIDNEY AND BLADDER TECHNIQUE: Grayscale and color/spectral doppler ultrasound of the kidneys and bladder was performed. COMPARISON: 05/14/2024 FINDINGS: Right kidney: 13.0 cm in length. No visualized mass, calculus, or hydronephrosis. Left kidney: 13.0 cm in length. 1.5 x 1.4 x 1.3 cm likely cyst inferolaterally. Prominent extrarenal pelvis without taurus caliectasis/hydronephrosis. No visualized calculus. Bladder: Estimated volume 372 mL. Bladder wall thickness 6 mm which could be related in part to underdistention. Layering debris dependently. Other: Echogenic liver. US/Kidney and Bladder IMPRESSION: 1. Findings suspicious for cystitis. Correlate with urinalysis. No hydronephr osis. 2. Diffuse hepatic steatosis. Correlate for clinical and laboratory evidence o f chronic liver disease. 3. Additional description as above. Reading Location: [id number]
--- NOTE | 2025-01-15 13:07 | US_ITS ---
PROCEDURE: PELVIC W/ TRANSVAGINAL (USPELTVAG), 01/15/2025 REASON FOR EXAM: COMPLETE PELVIC US AND TRANSVAGINAL - PELVIC PAIN TECHNIQUE: Grayscale and color doppler transabdominal and transvaginal pelvic ultrasound was performed. COMPARISON: None FINDINGS: Uterus: 8.3 x 4.2 x 3.7 cm, Retroflexed. Largely intramural presumed fibroids up to 3.7 x 3.1 x 3.4 cm, some demonstrating shadowing calcifications. Difficult to evaluate the relationship to the endometrium in the absence of cine imaging, however at least one smaller lesion measuring 1.0 x 0.9 x 0.9 cm demonstrates a probable tiny submucosal component. Endometrium: 6 mm, heterogeneous appearance with trace to small volume endocavitary fluid. Echogenic polypoid structure measures 7 x 3 x 7 mm endometrial with trace associated vascularity. Cervix: Nabothian cysts.. Right ovary: Nonvisualized. Left ovary: Nonvisualized. Free fluid: None visualized. Other: Estimated bladder volume 217 mL. US/Pelvic w/ Transvaginal IMPRESSION: 1. No acute abnormality. If unexplained symptoms persist, consider CT. 2. Heterogeneous endometrium which would be considered abnormally thickened in the setting of postmenopausal bleeding, and would otherwise be considered high-normal in thickness. Additionally, there is a 7 m m endometrial mass/polyp. Correlate with patient history and recommend clinical follow-up including follow-up imaging as early n eoplasia cannot be excluded. 3. Presumed uterine fibroids up to 3.7 cm. At least one demonstrates a probabl e at least tiny submucosal component which could be an additional source of abnormal bleeding, if present. 4. Bilateral ovaries not visualized. 5. Additional description as above. Reading Location: [id number]
== END | disposition home or self-care (01) ==
PROVIDERS: PCP Internal Medicine; Referring Provider Internal Medicine; Visit Provider Internal Medicine
DX: R35.89 Other polyuria (principal)
CPT/HCPCS: 76770; 76830; 76856

== ENCOUNTER → 2025-08-09 | Outpatient (CLI) | payer OTHER, SELFPAY ==
[2025-08-09 13:20] LABS: Hematocrit 41.7 % (37-47); Hemoglobin 13.0 g/dL (12.0-15.0); Immature Granulocytes Count 0.030 X10^3/uL (0.0-0.0); Mean Corp Hgb Conc 31.2 g/dL (32-36); Mean Corpuscular Volume 86.9 fL (81-99); Mean Platelet Vol. 10.2 fl (6.2-12.0); NRBC Flagged by Analyzer 0 % (0-5); Platelet Count 286 K/mm3 (150-450); RBC Distribution Width CV 14.6 % (11.6-14.6); RBC Distribution Width SD 46.8 fl (35.1-43.9); Red Blood Count 4.80 M/mm3 (4.2-5.4); White Blood Count 7.9 K/mm3 (4.4-11.0)
[2025-08-09 13:31] LABS: Creatinine, Urine (random) 157.00 mg/dL (28.00-217.00); Microalbumin,Random Urine < 12.0 mg/L (<20 mg/L)
[2025-08-09 13:50] LABS: AST(SGOT) 18 U/L (<=31); Alanine Aminotransfer ALT/SGPT 24 U/L (<=34); Albumin, Serum 4.3 g/dL (3.4-4.8); Alkaline Phosphatase 110 U/L (35-104); Anion Gap 10 (5-15); BUN 13 mg/dL (4-19); BUN/Creat Ratio 15.3 RATIO (10-20); Calcium,Total 9.2 mg/dL (7.6-11.0); Carbon Dioxide 26.0 mmol/L (21.0-32.0); Chloride 103 mmol/L (98-108); FOLATES,SERUM (FOLIC ACID) 10.90 ng/mL (4.60-34.80); Globulin 2.6 g/dL (2.2-4.2); Glucose 103 mg/dL (70-99); Potassium 4.3 mmol/L (3.3-5.1); Vitamin B12 623 pg/mL (180-914)
== END | disposition home or self-care (01) ==
LOC: LABSPEC 12:09
PROVIDERS: PCP Internal Medicine; Referring Provider Internal Medicine; Visit Provider Internal Medicine
DX: E88.810 Metabolic syndrome (principal); E53.8 Deficiency of other specified B group vitamins; K76.0 Fatty (change of) liver, not elsewhere classified
CPT/HCPCS: 80053; 82043; 82105; 82570; 82607; 82746; 85025

== ENCOUNTER → 2025-09-11 | Outpatient (CLI) | payer OTHER, SELFPAY ==
--- NOTE | 2025-09-11 09:17 | US_ITS ---
PROCEDURE: ABD LIMITED W/ ELASTOGRAPHY REASON FOR EXAM: ABD LIMITED W/ ELASTOG COMPARISON: None TECHNIQUE: Procedure Code: [id number] Modality: US Procedure: ABD LIMITED W/ ELASTOGRAPHY Right upper quadrant abdominal ultrasound. [facility] ElastQ Imaging shear wave elastography for non-invasive assessment of liver tissue stiffness. [employer] EPIQ Elite. FINDINGS: LIVER: Size: Borderline hepatomegaly. Length: 17.5 cm Echotexture: Diffusely echogenic suggesting fatty infiltration Contour: Normal Lesions: None identified Elastography: EQI Med: 6.1 kPa EQI Med Nelson: 1.39 m/s IQR/Med: 25 %* GALLBLADDER: Surgically absent. COMMON BILE DUCT: Post-cholecystectomy the common bile duct is within normal limits measuring 6.7 mm. . PANCREAS: Normal Visualized portions of the right kidney are unremarkable. No right upper quadrant ascites. US/ABD Limited w/ Elastography IMPRESSION: Mild hepatic fibrosis. Borderline hepatomegaly. Diffuse fatty infiltration of the liver. Status post cholecystectomy. Reference Values: SRU <1.37 m/s (5.7kPa): No to mild fibrosis 1.37 m/s - 2.2 m/s: Moderate to severe fibrosis >2.2 m/s (15kPa): Significant fibrosis / cirrhosis METAVIR Score F2 or higher: 1.34 m/s (5.7kPa) F3 or higher: 1.55 m/s (7.3kPa) F4: 1.80 m/s (10kPa) * If the IQR/Med is >30%, the variance in the measurements is a large and the a ccuracy of the measurement may be in question. Reading Location: [place] [id number]
--- NOTE | 2025-09-11 09:17 | US_ITS ---
PROCEDURE: THYROID 09/11/2025 REASON FOR EXAM: THYROID TECHNIQUE: Procedure Code: USTHY Modality: US Procedure: THYROID COMPARISON: Thyroid ultrasound dated 04/12/2024 FINDINGS: Right thyroid lobe size: Surgically removed. There is a persistent 11 x 6 x 6 mm nodular density in the right thyroid bed that is homogeneous in echotexture with normal vascularity. This nodular density is wider than it is tall and produces no posterior shadowing. It has primarily smooth margins. Previously this measured 8 mm. Left thyroid lobe size: 5.0 x 2.3 x 1.7 cm. There is a cystic nodule seen in the left thyroid lobe which has a solid component. This nodule measures 4 x 4 x 3 mm. There is a small amount of blood flow to the nodule. There is a benign-appearing cystic nodule seen more posteriorly measuring 5 x 4 x 3 mm. There is a heterogeneous solid nodule seen measuring 8 x 6 x 6 mm along the posterior lateral aspect. This nodule is wider than it is tall and produces no posterior shadowing. There is a small amount of blood flow to the nodule. Isthmus: 3 mm. No nodules are seen in the isthmus. Background parenchymal echotexture is homogeneous. Nodules: 1. Lobe: Right, Location: Postsurgical bed, Size: 11 x 6 x 6 mm, Stability: Minimally larger Composition: Solid or almost completely solid (+2) Echogenicity: Hypoechoic Margin: Smooth (+0) Shape: Wider than tall (+0) Echogenic Foci: None (+0) TI-RADS: 2 2. Lobe: Left, Location: Middle aspect, Size: 4 x 4 x 3 mm, Composition: Cystic or mostly cystic (+0) Echogenicity: Anechoic (+0) Margin: Smooth (+0) Shape: Wider than tall (+0) Echogenic Foci: Macrocalcification (+1) TI-RADS: TI-RADS 1 2. Lobe: Left, Location: Posterior aspect, Size: 5 x 4 x 3 mm, Composition: Cystic or mostly cystic (+0) Echogenicity: Anechoic (+0) Margin: Smooth (+0) Shape: Wider than tall (+0) Echogenic Foci: None (+0) TI-RADS: 1 3. Lobe: Left, Location: Posterior lateral, Size: 8 x 6 x 6 mm, Composition: Solid or almost completely solid (+2) Echogenicity: Hypoechoic (+2) Margin: Smooth (+0) Shape: Wider than tall (+0) Echogenic Foci: None (+0) TI-RADS: TI-RADS 3 US/Thyroid IMPRESSION: The above findings are most compatible with multinodular goiter. Please note t hat the right nodule seen in the right post thyroidectomy bed is slightly larger as described above. RECOMMENDATION: Based on most suspicious nodule. Nodule size = largest diameter Only evaluate nodule if =>5 mm. Growth > 20% in 2 dimensions = worsening. Follow up to 4 nodules. Recommend biopsy for no more than 2 nodules. Reading Location: [id number]
== END | disposition home or self-care (01) ==
LOC: US 09:17
PROVIDERS: PCP Internal Medicine; Referring Provider Internal Medicine; Visit Provider Internal Medicine
DX: K76.0 Fatty (change of) liver, not elsewhere classified (principal); E04.1 Nontoxic single thyroid nodule
CPT/HCPCS: 76536; 76705; 76981